=== PATIENT | male | born 1980 | race Caucasian/White ===

== ENCOUNTER 2016-11-19 09:13 | Inpatient (IN) | payer MEDICAID ==
--- NOTE | 2016-11-19 09:29 | EDM.PDOC ---
ED HPI GENERAL MEDICAL PROBLEM - General Chief Complaint: Gastrointestinal Problem Stated Complaint: [facility] Time Seen by Provider: 11/19/16 09:24 Source of Information: Reports: Patient History Limitations: Reports: No Limitations - History of Present Illness INITIAL COMMENTS - FREE TEXT/NARRATIVE: 36-year-old male presents to the ED per [facility]. Presented with a 2 day history of fever chills rigors associated nausea and vomiting 3 twice this morning of bilious material and loose watery stools. He said 5 loose watery stools since midnight. He does entertain the possibility of bad food ingestion by eating catfish about 24 hours before he became ill. Associated generalized myalgia headache. He also has a productive cough but he doesn't think is any worse than normal. He smokes pack cigarettes per day. History of previous pneumonia requiring thoracotomy drainage due to development of empyema but 15 years ago. Onset: Sudden Onset Date: 11/17/16 Duration: Day(s): Location: Reports: Generalized (Fever chills with rigors. Associated nausea vomiting diarrhea. My productive cough.) Quality: Reports: Ache, Other (Fever greater than 102. Associated rigors chills ) Severity: Moderate Improves with: Reports: None (Can't keep anything down.) Worsens with: Reports: Other Context: Denies: Activity, Exercise, Lifting, Sick Contact, Trauma, Other Associated Symptoms: Reports: Cough, cough w sputum, Diaphoresis, Fever/Chills ( Minimal sputum production), Headaches ( with rigors), Loss of Appetite, Malaise , Nausea/Vomiting, Other (Diarrhea side 5-8 times per day). Denies: Confusion, Rash, Seizure, Shortness of Breath, Syncope Treatments [employer]PER[employer]OR: Reports: NSAIDS - Related Data Allergies Allergy/AdvReac Type Severity Reaction Status Date / Time No Known Allergies Allergy Verified 11/19/16 09:21 Home Meds: Home Meds . [No Known Home Meds] 04/14/16 [History] Past Medical History HEENT History: Reports: None Cardiovascular History: Reports: Other (See Below) Other Cardiovascular History: chest pain Respiratory History: Reports: Sleep Apnea, Other (See Below) Other Respiratory History: states had a lung procedure done for R sided pneumonia, lung was drained Gastrointestinal History: Reports: Chronic Diarrhea, Other (See Below) Other Gastrointestinal History: RUQ pain, esophagitis, nausea Musculoskeletal History: Reports: None Neurological History: Reports: None Psychiatric History: Reports: Anxiety, Depression, Panic Attack Endocrine/Metabolic History: Reports: None Hematologic History: Reports: Other (See Below) Other Hematologic History: leukocytosis Dermatologic History: Reports: Eczema Social & Family History - Tobacco Use Smoking Status *Q: Current Every Day Smoker - Recreational Drug Use Recreational Drug Use: Yes Drug Use in Last 12 Months: No Recreational Drug Type: Reports: Marijuana/Hashish Recreational Drug Last Use: new year - Living Situation & Occupation Living situation: Reports: Single Occupation: Employed (Works doing construction.) ED ROS GENERAL - Review of Systems Review Of Systems: See Below Constitutional: Reports: Fever, Chills, Malaise, Weakness, Fatigue, Decreased Appetite. Denies: Weight Loss HEENT: Reports: No Symptoms Respiratory: Reports: Cough, Sputum (Small quantities.). Denies: Hemoptysis ( No color to it) Cardiovascular: Reports: No Symptoms Endocrine: Reports: No Symptoms GI/Abdominal: Reports: Abdominal Pain (Intermittent mild crampy pain), Diarrhea (Loose watery stools 5 since midnight. 8 yesterday.), Decreased Appetite ( No blood noted), Nausea, Vomiting (3 times this morning.) : Reports: No Symptoms Musculoskeletal: Reports: Muscle Pain Skin: Reports: No Symptoms (Generalized myalgia) Neurological: Reports: Dizziness, Headache ([place] like he might pass out a few times when standing up.), Difficulty Walking, Weakness (Due to feeling dizzy and weak) Psychiatric: Reports: No Symptoms ( generalized) Hematologic/Lymphatic: Reports: No Symptoms Immunologic: Reports: No Symptoms ED EXAM, GI/ABD - Physical Exam Exam: See Below Exam Limited By: No Limitations General Appearance: Alert, WD/WN, Mild Distress, Other Eyes: Bilateral: Normal Appearance (No jaundice.) Ears: Normal External Exam, Normal TMs Nose: Normal Inspection Throat/Mouth: Normal Oropharynx (Tongue is dry and coated.), Other Head: Atraumatic, Normocephalic Neck: Normal Inspection, Supple, Non-Tender, Full Range of Motion. No: Lymphadenopathy (L), Lymphadenopathy (R) Respiratory/Chest: No Respiratory Distress, Lungs Clear, Normal Breath Sounds, No Accessory Muscle Use, Respiratory Distress (Mild tachypnea felt to be secondary to fever.) Cardiovascular: Normal Peripheral Pulses, Regular Rate, Rhythm, No Edema, No Gallop, No Murmur GI/Abdominal Exam: Soft, Non-Tender, No Organomegaly, No Distention, No Abnormal Bruit, Abnormal Bowel Sounds (Hypoactive.), Other (No surgical scars) Back Exam: Normal Inspection, Full Range of Motion. No: CVA Tenderness (L), CVA Tenderness (R) Extremities: Normal Inspection, Normal Range of Motion, Non-Tender, No Pedal Edema, Normal Capillary Refill Neurological: Alert, Oriented, CN II-XII Intact, Normal Cognition, Normal Gait Psychiatric: Normal Affect, Normal Mood Skin Exam: Warm, Dry, Intact, Normal Color, No Rash EKG INTERPRETATION EKG Date: 11/19/16 Time: 09:40 Rhythm: NSR Rate (Beats/Min): 94 [place]: Normal P-Wave: Present QRS: Normal ST-T: Normal QT: Normal EKG Interpretation Comments: Normal ECG Course - Vital Signs Last Recorded V/S: Last Vital Signs Temp 39.3 C H 11/19/16 16:12 Pulse 99 11/19/16 09:22 Resp 14 11/19/16 09:22 BP 124/79 11/19/16 09:22 Pulse Ox 99 11/19/16 09:22 - Orders/Labs/Meds Orders: Active Orders 24 hr Category Date Time Status EKG Documentation Completion [RC] STAT Care 11/19/16 09:25 Active C DIFFICILE BY PCR W/NAP1 [MOLEC] Stat Lab 11/19/16 09:26 Ordered CULTURE BLOOD [BC] Stat Lab 11/19/16 10:03 Received CULTURE BLOOD [BC] Stat Lab 11/19/16 11:55 Received CULTURE STOOL + SHIGATOX [RM] Stat Lab 11/19/16 09:26 Uncollected WBC, STOOL [OP] Stat Lab 11/19/16 09:26 Uncollected Dextrose 5%-0.9% NaCl [Dextrose 5%-Normal Saline] 1,000 Med 11/19/16 09:30 Active ml IV ASDIRECTED Sodium Chloride 0.9% [Normal Saline] 1,000 ml Med 11/19/16 11:30 Active IV ASDIRECTED Blood Culture x2 Reflex Set [OM.PC] Stat Oth 11/19/16 09:26 Ordered Medication Orders Dextrose/Sodium Chloride (Dextrose 5%-Normal Saline) 1,000 mls @ 999 mls/hr IV ASDIRECTED LIYAH Last Admin: 11/19/16 10:08 Dose: 999 mls/hr Sodium Chloride (Normal Saline) 1,000 mls @ 125 mls/hr IV ASDIRECTED LIYAH Last Admin: 11/19/16 11:30 Dose: 125 mls/hr Labs: Laboratory Tests 11/19/16 11/19/16 11/19/16 Range/Units 10:03 10:03 11:50 WBC 10.12 H (4.23-9.07) K/mm3 RBC 5.54 (4.63-6.08) M/mm3 Hgb 15.8 (13.7-17.5) gm/L Hct 46.6 (40.1-51.0) % MCV 84.1 (79.0-92.2) fl MCH 28.5 (25.7-32.2) pg MCHC 33.9 (32.2-35.5) g/dl RDW Std Deviation 39.8 (35.1-43.9) fL Plt Count 265 (163-337) K/mm3 MPV 10.3 (9.4-12.3) fl Neutrophils % (Manual) 85 H (40-60) % Band Neutrophils % 0 (0-10) % Lymphocytes % (Manual) 13 L (20-40) % Atypical Lymphs % 0 % Monocytes % (Manual) 1 L (2-10) % Eosinophils % (Manual) 0 L (0.8-7.0) % Basophils % (Manual) 1 (0.2-1.2) Toxic Granulation See note Platelet Estimate Adequate Plt Morphology Comment Normal RBC Morph Comment Normal Sodium 136 (136-145) mEq/L Potassium 4.0 (3.5-5.1) mEq/L Chloride 102 (98-107) mEq/L Carbon Dioxide 25 (21-32) mEq/L Anion Gap 13.0 (5-15) BUN 14 (7-18) mg/dL Creatinine 1.4 H (0.7-1.3) mg/dL Est Cr Clr Drug Dosing 69.21 mL/min Estimated GFR (MDRD) 57 (>60) mL/min BUN/Creatinine Ratio 10.0 L (14-18) Glucose 98 (74-106) mg/dL Calcium 9.0 (8.5-10.1) mg/dL Total Bilirubin 0.7 (0.2-1.0) mg/dL AST 25 (15-37) U/L ALT 52 (16-63) U/L Alkaline Phosphatase 88 (46-116) U/L C-Reactive Protein 0.2 (<1.0) mg/dL Total Protein 7.4 (6.4-8.2) g/dl Albumin 3.7 (3.4-5.0) g/dl Globulin 3.7 gm/dL Albumin/Globulin Ratio 1.0 (1-2) Lipase 121 (73-393) U/L Urine Color Yellow (Yellow) Urine Appearance Clear (Clear) Urine pH 6.5 (5.0-8.0) Ur Specific [place] 1.015 (1.005-1.030) Urine Protein Negative (Negative) Urine Glucose (UA) Trace H (Negative) Urine Ketones 2+ H (Negative) Urine Occult Blood Negative (Negative) Urine Nitrite Negative (Negative) Urine Bilirubin Negative (Negative) Urine Urobilinogen 1.0 (0.2-1.0) Ur Leukocyte Esterase Negative (Negative) Urine RBC Not seen (0-5) /hpf Urine WBC 0-5 (0-5) /hpf Ur Epithelial Cells Not seen (0-5) /hpf Urine Bacteria Few (FEW) /hpf Urine Mucus Few (FEW) /hpf Meds: Medications Generic Name Dose Route Start Last Admin Trade Name Freq PRN Reason Stop Dose Admin Dextrose/Sodium Chloride 1,000 mls @ 999 mls/hr 11/19/16 09:30 11/19/16 10:08 Dextrose 5%-Normal Saline IV 999 mls/hr ASDIRECTED LIYAH Administration Sodium Chloride 1,000 mls @ 125 mls/hr 11/19/16 11:30 11/19/16 11:30 Normal Saline IV 125 mls/hr ASDIRECTED LIYAH Administration Discontinued Medications Generic Name Dose Route Start Last Admin Trade Name Freq PRN Reason Stop Dose Admin Acetaminophen 975 mg 11/19/16 10:46 11/19/16 10:49 Tylenol PO 11/19/16 10:47 975 mg NOW ONE Administration Diatrizoate Meglum/Diatrizoate Sod 90 ml 11/19/16 13:19 11/19/16 13:30 Gastrografin 37% PO 11/19/16 13:20 90 ml ONETIME ONE Administration Levofloxacin/Dextrose 750 mg/ 150 mls @ 100 mls/hr 11/19/16 14:15 11/19/16 14 :32 Premix IV 11/19/16 15:44 100 mls/hr ONETIME ONE Administration Ibuprofen 600 mg 11/19/16 16:09 11/19/16 16:12 Motrin PO 11/19/16 16:10 600 mg ONETIME ONE Administration Iopamidol 125 ml 11/19/16 13:19 11/19/16 13:30 Isovue-300 (61%) IVPUSH 11/19/16 13:20 125 ml ONETIME ONE Administration Sodium Chloride 10 ml 11/19/16 13:19 11/19/16 13:30 Saline Flush FLUSH 11/19/16 13:20 10 ml ONETIME ONE Administration - Radiology Interpretation Free Text/Narrative:: 36-year-old male presents to the ED for evaluation of high fever with associated rigors and chills over the last 2 days. Also development of nausea vomiting intermittently and loose watery diarrhea stools. Possible foodborne illness exposure by eating catfish that have been smoked 3 days ago. No recent antibiotic usage. Benign abdominal examination obviously febrile to exam. Paramedics gave him Zofran 4mg en route to the hospital . Plan D5 normal saline at open. Routine labs and blood cultures 2. One view chest x-ray urinalysis. Stool for culture and WBCs if this one becomes available. We'll also have him checked for influenza as he has many of the symptoms of influenza type B. - Re-Assessments/Exams Free Text/Narrative Re-Assessment/Exam: 11/19/16 10:58 labs reveal a white count of 10.12 with a left shift of 85% neutrophils but no bands. Hemoglobin 15.8 with hematocrit of 46.6. Platelets 2 65,000. Sodium 136 potassium 4.0 chloride 102 bicarbonate 25. Anion gap is 13.8. BUNs 14 creatinine is 1.4. Lipase 121 CRP is 0.2. Urinalysis is not yet available 11/19/16 11:08 chest x-ray reveals some heavy bronchovascular markings in both lower lung nieves worse on the right as compared to the left but no definitive infiltrates that I could call and pneumonia. An early pneumonia however cannot be ruled out 11/19/16 11:21 Temperature is now gone up to 102.2. Given Tylenol 975 mg per ora. Influenza screen came back negative. Awaiting urinalysis. If this is normal will proceed with CT abdomen and pelvis to try and identify source of fever. 11/19/16 14:[address] of the abdomen and pelvis. All bladder appears to be within normal limits with no pericholecystic fluid and no definitive gallstones. Liver is homogenous and normal. Pancreas appears normal kidneys and ureters are normal. Adrenal glands appear normal as well. There are several diverticula involving the lower aspect of the colon and sigmoid colon. There is an area at the rectosigmoid junction that appears to have a low-grade inflammatory response. The terminal ileum also appears to have thickened lilly suggestive of Crohn's disease. The patient has reported intermittent diarrhea and intermittent abdominal cramping pain but not all the time and it's unlikely that he has Crohn's disease. It male katie also represent a infectious illness. I will await the radiologist's opinion in this regard. Temperature is down to 100. I am going to start him on antibiotics starting with Levaquin 750 mg IV. Note urinalysis only showed 2+ ketones. No signs of infection. 11/19/16 14:35 He is a bit hungry and therefore he can certainly have clear fluids and we will give him a nondairy diet. Spoke with Dr. Mckenzie admitting hospitalist and she will see him in the ED to arrange admission to [facility] surgery. Departure - Departure Time of Disposition: 16:30 Disposition: Admitted As Inpatient 64 Condition: Fair Clinical Impression: Fever of unknown origin, Gastroenteritis - Discharge Information - My Orders Last 24 Hours: My Active Orders 11/19/16 09:25 EKG Documentation Completion [RC] STAT 11/19/16 09:26 C DIFFICILE BY PCR W/NAP1 [MOLEC] Stat CULTURE STOOL + SHIGATOX [RM] Stat WBC, STOOL [OP] Stat Blood Culture x2 Reflex Set [OM.PC] Stat 11/19/16 09:30 Dextrose 5%-0.9% NaCl [Dextrose 5%-Normal Saline] 1,000 ml IV ASDIRECTED 11/19/16 10:03 CULTURE BLOOD [BC] Stat 11/19/16 11:30 Sodium Chloride 0.9% [Normal Saline] 1,000 ml IV ASDIRECTED 11/19/16 11:55 CULTURE BLOOD [BC] Stat - Assessment/Plan Last 24 Hours: My Active Orders 11/19/16 09:25 EKG Documentation Completion [RC] STAT 11/19/16 09:26 C DIFFICILE BY PCR W/NAP1 [MOLEC] Stat CULTURE STOOL + SHIGATOX [RM] Stat WBC, STOOL [OP] Stat Blood Culture x2 Reflex Set [OM.PC] Stat 11/19/16 09:30 Dextrose 5%-0.9% NaCl [Dextrose 5%-Normal Saline] 1,000 ml IV ASDIRECTED 11/19/16 10:03 CULTURE BLOOD [BC] Stat 11/19/16 11:30 Sodium Chloride 0.9% [Normal Saline] 1,000 ml IV ASDIRECTED 11/19/16 11:55 CULTURE BLOOD [BC] Stat
[2016-11-19] MEDS ORDERED: Dextrose 5%-0.9% NaCl 1,000 ML IV SCH (09:30)
[2016-11-19] MEDS ORDERED: Acetaminophen 325 MG Tab PO ONE (10:46)
[2016-11-19] MEDS: Sodium Chloride 0.9% 1,000 ML IV SCH ×2 (11:30→23:13)
--- NOTE | 2016-11-19 12:57 | CR ---
Chest: Portable view of the chest was obtained. Comparison: No previous chest x-ray. Heart size and mediastinum are normal. Slight blunting of the right lateral costophrenic angle is seen. Central lung markings mildly increased possibly due to mild bronchitis. Lungs otherwise are clear with no alveolar type densities. Bony structures are grossly intact. Impression: 1. Blunting of the right lateral costophrenic angle possibly due to slight atelectasis. 2. Mild increased lung markings raising the question of mild bronchitis. No alveolar densities of pneumonia are seen. Diagnostic code #3
[2016-11-19] MEDS ORDERED: Sodium Chloride 0.9% 10 ML Syringe FLUSH ONE (13:19)
[2016-11-19] MEDS ORDERED: Iopamidol 612 MG/ML 150 ML Bottle IVPUSH ONE (13:19)
[2016-11-19] MEDS ORDERED: Diatrizoate Meglumine/Diatrizoate Sodium 37% 120 ML Bottle PO ONE (13:19)
[2016-11-19] MEDS ORDERED: Levofloxacin/Dextrose 5%-Water 750 MG in Premix Bag 1 BAG IV ONE (14:15)
--- NOTE | 2016-11-19 14:17 | CT ---
CT abdomen and pelvis Technique: Multiple axial images were obtained from the top of the liver inferiorly through the pubic symphysis. Intravenous and oral contrast was utilized. Reconstructed coronal and sagittal images were reviewed. Delayed images were obtained through the bladder. Findings: Bowel wall thickening is seen within the terminal ileum. Appendix is seen which appears normal. No other bowel wall thickening is seen. Visualized lung bases shows minimal atelectasis on the right side. Liver shows no focal parenchymal abnormality. Small hiatal hernia is seen. Minimal gastroesophageal reflux is noted. Spleen appears within normal limits. Adrenal glands show no nodule. Kidneys show symmetric contrast enhancement without hydronephrosis or mass. Pancreas appears within normal limits. Aorta shows no aneurysmal dilatation. No retroperitoneal adenopathy is seen. Small scattered mesenteric lymph nodes are seen believed to be within normal limits. No pelvic mass or adenopathy is seen. Bone window settings were reviewed which shows a unilateral spondylitic defect at L5-S1 on the left side. Delayed images shows contrast within the distal ureters and within the bladder. Impression: 1. Bowel wall thickening within the terminal ileum. Crohn's disease is the most likely etiology. Other inflammatory bowel disease is possible. Infectious enteritis is also within the differential. 2. Other incidental finding as noted above. Diagnostic code #3
[2016-11-19] MEDS ORDERED: Ibuprofen 600 MG Tab PO ONE (16:09)
[2016-11-19] MEDS ORDERED: Magnesium Sulfate/Water 2 GM in Premix Bag 1 BAG IV ONE (17:57)
[2016-11-19] MEDS ORDERED: REMOVE SCOPOLAMINE TRDERM PRN (18:01)
[2016-11-19] MEDS ORDERED: HYDROmorphone 1 MG/ML Syringe IVPUSH PRN (18:01)
--- NOTE | 2016-11-19 18:19 | PCM.HP ---
H&P History of Present Illness - General Date of Service: 11/19/16 Admit Problem/Dx: Admission Diagnosis/Problem Admission Diagnosis/Problem Fever of unknown origin Source of Information: Patient, Provider History Limitations: Reports: No Limitations - History of Present Illness Initial Comments - Free Text/Narative: 36 year old male with history of chronic diarrhea, has had a three day course of watery stool. CT of abdomen/pelvis suggest Crohn's with terminal ileum involvement. Patient has had fever and chills with decreased appetite. Additionally nausea/vomiting. Elevated temp >102F has also been noted. Onset of Symptoms: Reports: Gradual Duration of Symptoms: Reports: Day(s):, Getting Worse Location: Reports: Abdomen Quality: Reports: Ache Severity: Moderate Improves with: Reports: Medication Worsens with: Reports: None Associated Symptoms: Reports: Fever/Chills, Loss of Appetite, Malaise, Nausea/ Vomiting, Weakness headache Pain Score (Numeric/FACES): 10 - Related Data Allergies/Adverse Reactions: Allergies Allergy/AdvReac Type Severity Reaction Status Date / Time No Known Allergies Allergy Verified 11/19/16 09:21 Home Medications: Home Meds . [No Known Home Meds] 04/14/16 [History] Past Medical History HEENT History: Reports: None Cardiovascular History: Reports: Other (See Below) Other Cardiovascular History: chest pain Respiratory History: Reports: Sleep Apnea, Other (See Below) Other Respiratory History: states had a lung procedure done for R sided pneumonia, lung was drained Gastrointestinal History: Reports: Chronic Diarrhea, Other (See Below) Other Gastrointestinal History: RUQ pain, esophagitis, nausea Musculoskeletal History: Reports: None Neurological History: Reports: None Other Neuro History: started 3 weeks Psychiatric History: Reports: Anxiety, Depression, Panic Attack Endocrine/Metabolic History: Reports: None Hematologic History: Reports: Other (See Below) Other Hematologic History: leukocytosis Dermatologic History: Reports: Eczema - Infectious Disease History Infectious Disease History: Reports: Other (See Below) Other Infectious Disease History: not sure - Past Surgical History Cardiovascular Surgical History: Reports: None GI Surgical History: Reports: None Endocrine Surgical History: Reports: None Neurological Surgical History: Reports: None Social & Family History - Family History Cardiac: Reports: [place] Other Cardiac Family History: father, grandfather and uncle Respiratory: Reports: None GI: Reports: None : Reports: None OBGYN: Reports: None Musculoskeletal: Reports: None Neurological: Reports: None Psychiatric: Reports: None Endocrine/Metabolic: Reports: None Hematologic: Reports: None Immunologic: Reports: None Oncologic: Reports: None - Tobacco Use Smoking Status *Q: Current Every Day Smoker Years of Tobacco use: 25 Packs/Tins Daily: 1 - Caffeine Use Caffeine Use: Reports: Coffee, Tea - Recreational Drug Use Recreational Drug Use: Yes Drug Use in Last 12 Months: No Recreational Drug Type: Reports: Marijuana/Hashish Recreational Drug Last Use: new year - Living Situation & Occupation Living situation: Reports: Single Occupation: Employed (Works doing construction.) H&P Review of Systems - Review of Systems: Review Of Systems: See Below General: Reports: Fever, Chills, Malaise, Weakness, Fatigue, Decreased Appetite HEENT: Reports: No Symptoms Pulmonary: Reports: No Symptoms Cardiovascular: Reports: No Symptoms Gastrointestinal: Reports: Abdominal Pain, Diarrhea (watery stools), Decreased Appetite Genitourinary: Reports: No Symptoms Musculoskeletal: Reports: No Symptoms Skin: Reports: No Symptoms Psychiatric: Reports: No Symptoms Neurological: Reports: No Symptoms Exam - Exam Exam: See Below - Vital Signs Vital Signs: Last Vital Signs Temp 37.2 C 11/19/16 16:49 Pulse 94 11/19/16 16:49 Resp 20 11/19/16 16:49 BP 111/82 11/19/16 16:49 Pulse Ox 98 11/19/16 16:49 Weight: 81.647 kg - Exam Quality Assessment: DVT Prophylaxis General: Alert, Oriented, Cooperative HEENT: Nares Patent, Normal Nasal Septum, Posterior Pharynx Clear, Pupils Equal , Pupils Reactive Neck: Supple, Trachea Midline Lungs: Normal Respiratory Effort Cardiovascular: Regular Rate, Regular Rhythm GI/Abdominal Exam: Normal Bowel Sounds, Soft, Non-Tender, No Distention, No Abnormal Bruit (Male) Exam: Deferred Rectal (Males) Exam: Deferred Back Exam: Normal Inspection Extremities: Normal Inspection, No Pedal Edema Skin: Warm Neurological: Cranial Nerves Intact, Normal Speech Neuro Extensive - Mental Status: Alert, Oriented x3, Normal Mood/Affect, Normal Cognition, Memory Intact Neuro Extensive - Motor, Sensory, Reflexes: CN II-XII Intact Psychiatric: Alert, Normal Affect, Normal Mood - Patient Data Result Diagrams: 11/20/16 05:38 11/20/16 05:38 *Q Meaningful Use (ADM) - VTE *Q VTE Criteria *Q: - Stroke *Q Stroke Criteria *Q: - AMI *Q AMI Criteria *Q: - Problem List (1) Crohns disease of small intestine SNOMED Code(s): 08319605 ICD Code: K50.00 - CROHN'S DISEASE OF SMALL INTESTINE WITHOUT COMPLICATIONS Status: Acute Current Visit: Yes Qualifiers: Digestive disease complication type: without complication Qualified Code(s) : K50.00 - Crohn's disease of small intestine without complications (2) Fever of unknown origin SNOMED Code(s): 5156659 ICD Code: R50.9 - FEVER, UNSPECIFIED Status: Acute Current Visit: Yes (3) Gastroenteritis SNOMED Code(s): 79176960 ICD Code: K52.9 - NONINFECTIVE GASTROENTERITIS AND COLITIS, UNSPECIFIED Status: Acute Current Visit: Yes (4) Tobacco dependence SNOMED Code(s): 09509773 ICD Code: F17.200 - NICOTINE DEPENDENCE, UNSPECIFIED, UNCOMPLICATED Status : Acute Current Visit: Yes Problem List Initiated/Reviewed/Updated: Yes Orders Last 24hrs: Active Orders 24 hr Category Date Time Status Admission Status [Patient Status] [ADT] Routine ADT 11/19/16 17:17 Active Antiembolic Devices [RC] PER UNIT ROUTINE Care 11/19/16 17:58 Active Notify Provider Consults [RC] ASDIRECTED Care 11/19/16 18:07 Ordered Consult to Physician [CONS] Routine Cons 11/19/16 18:30 Ordered CBC WITH AUTO DIFF [HEME] DAILY Lab 11/20/16 05:00 Ordered CBC WITH AUTO DIFF [HEME] DAILY Lab 11/21/16 05:00 Ordered CBC WITH AUTO DIFF [HEME] DAILY Lab 11/22/16 05:00 Ordered CBC WITH AUTO DIFF [HEME] DAILY Lab 11/23/16 05:00 Ordered CMP [COMPREHENSIVE METABOLIC PN,CMP] [CHEM] DAILY Lab 11/20/16 05:00 Ordered CMP [COMPREHENSIVE METABOLIC PN,CMP] [CHEM] DAILY Lab 11/21/16 05:00 Ordered CMP [COMPREHENSIVE METABOLIC PN,CMP] [CHEM] DAILY Lab 11/22/16 05:00 Ordered CMP [COMPREHENSIVE METABOLIC PN,CMP] [CHEM] DAILY Lab 11/23/16 05:00 Ordered CRP [C-REACTIVE PROTEIN] [CHEM] DAILY Lab 11/20/16 05:00 Ordered CRP [C-REACTIVE PROTEIN] [CHEM] DAILY Lab 11/21/16 05:00 Ordered CRP [C-REACTIVE PROTEIN] [CHEM] DAILY Lab 11/22/16 05:00 Ordered CRP [C-REACTIVE PROTEIN] [CHEM] DAILY Lab 11/23/16 05:00 Ordered LACTIC ACID [CHEM] DAILY Lab 11/20/16 05:00 Ordered LACTIC ACID [CHEM] DAILY Lab 11/21/16 05:00 Ordered LIPASE [CHEM] Routine Lab 11/20/16 05:00 Ordered MAGNESIUM [CHEM] DAILY Lab 11/20/16 05:00 Ordered MAGNESIUM [CHEM] DAILY Lab 11/21/16 05:00 Ordered MAGNESIUM [CHEM] DAILY Lab 11/22/16 05:00 Ordered MAGNESIUM [CHEM] DAILY Lab 11/23/16 05:00 Ordered HYDROmorphone [Dilaudid] Med 11/19/16 18:01 Ordered 1 mg IVPUSH Q8H PRN Ketorolac [Toradol] Med 11/20/16 00:30 Ordered 30 mg IVPUSH Q6H Ketorolac [Toradol] Med 11/19/16 17:52 Pending 60 mg IVPUSH ONETIME ONE LORazepam [Ativan] Med 11/19/16 18:03 Ordered 1 mg IVPUSH Q6H PRN Magnesium Sulfate/Water [Magnesium Sulfate 2 GM in Med 11/19/16 17:57 Ordered Water 50 ML] 2 gm Premix Bag 1 bag IV ONETIME Nicotine [Habitrol] Med 11/20/16 08:00 Once 21 mg TRDERM ONETIME ONE Ondansetron [Zofran] Med 11/19/16 18:00 Ordered 4 mg IVPUSH Q8H PRN Pantoprazole [ProTONIX IV] Med 11/19/16 18:00 Ordered 40 mg IVPUSH Q12H Remove Patch Med 11/19/16 18:01 Active 1 ea TRDERM Q72H PRN Scopolamine [Transderm-Scop] Med 11/19/16 18:01 Ordered 1.5 mg TRDERM Q72H PRN Sodium Chloride 0.45% 1,000 ml Med 11/19/16 18:00 Active IV ASDIRECTED metroNIDAZOLE/Normal Saline [Flagyl 500 MG in NS 100 ML Med 11/19/16 18:00 Active ] 500 mg Premix Bag 1 bag IV Q8H SRI Hose [Antiembolic Hose] [OM.PC] Routine Oth 11/19/16 17:58 Ordered Code Status [Resuscitation Status] Routine Resus Stat 11/19/16 17:39 Ordered Medication Orders Hydromorphone HCl (Dilaudid) 1 mg IVPUSH Q8H PRN PRN Reason: Pain (severe 7-10) Dextrose/Sodium Chloride (Dextrose 5%-Normal Saline) 1,000 mls @ 999 mls/hr IV ASDIRECTED [facility] Last Admin: 11/19/16 10:08 Dose: 999 mls/hr Sodium Chloride (Normal Saline) 1,000 mls @ 125 mls/hr IV ASDIRECTED [facility] Last Admin: 11/19/16 11:30 Dose: 125 mls/hr Sodium Chloride (Sodium Chloride 0.45%) 1,000 mls @ 999 mls/hr IV ASDIRECTED [facility] Stop: 11/20/16 19:01 Metronidazole 500 mg/ Premix 100 mls @ 100 mls/hr IV Q8H LIYAH Magnesium Sulfate 2 gm/ Premix 50 mls @ 25 mls/hr IV ONETIME ONE Stop: 11/19/16 19:56 Ketorolac Tromethamine (Toradol) 60 mg IVPUSH ONETIME ONE Stop: 11/19/16 17:53 Ketorolac Tromethamine (Toradol) 30 mg IVPUSH Q6H LIYAH Lorazepam (Ativan) 1 mg IVPUSH Q6H PRN PRN Reason: Anxiety Miscellaneous Information (Remove Patch) 1 ea TRDERM Q72H PRN PRN Reason: PATCH REMOVAL Nicotine (Habitrol) 21 mg TRDERM ONETIME ONE Stop: 11/20/16 08:01 Ondansetron HCl (Zofran) 4 mg IVPUSH Q8H PRN PRN Reason: Nausea/Vomiting Pantoprazole Sodium (Protonix Iv) 40 mg IVPUSH Q12H LIYAH Scopolamine (Transderm-Scop) 1.5 mg TRDERM Q72H PRN PRN Reason: Nausea/Vomiting Assessment/Plan Comment:: Impression: Abdominal pain, infectious cf Crohn's Abnormal CT of abdomen/pelvis Chronic diarrhea, character changed to watery Febrile illness Dehydration Plan: IVF; ice chips Pain control IV ATB Steroids after infectious source evaluated GI eval as OP; general surgery as inpatient DVT/GI prophylaxis SW/CM consult
[2016-11-19] MEDS: Pantoprazole 40 MG Vial IVPUSH SCH (18:53)
[2016-11-19] MEDS: Sodium Chloride 0.45% 1,000 ML IV SCH ×2 (18:54→20:00)
[2016-11-19] MEDS: metroNIDAZOLE/Normal Saline 500 MG in Premix Bag 1 BAG IV SCH (19:36)
[2016-11-19] MEDS: Ondansetron 4 MG/2 ML SDV IVPUSH PRN (19:42)
[2016-11-19] MEDS ORDERED: Ketorolac 30 MG/ML SDV IM ONE (20:00)
[2016-11-20] MEDS ORDERED: Ketorolac 30 MG/ML SDV IVPUSH SCH (02:00)
[2016-11-20] MEDS: metroNIDAZOLE/Normal Saline 500 MG in Premix Bag 1 BAG IV SCH ×3 (03:04→17:42)
[2016-11-20] MEDS: Ketorolac 30 MG/ML SDV IVPUSH SCH ×2 (05:42→11:17)
[2016-11-20] MEDS: Pantoprazole 40 MG Vial IVPUSH SCH ×2 (05:44→17:56)
[2016-11-20] MEDS ORDERED: Nicotine 21 MG/24 Hr Patch TRDERM ONE (08:00)
--- NOTE | 2016-11-20 08:13 | CONS ---
CONSULTING PHYSICIAN: Raymond Schwab MD DATE OF CONSULTATION: 11/19/2016 HISTORY OF PRESENT ILLNESS: This is a 36-year-old from [place], works in construction, presented with 2-day history of fever and chills, and some nausea and vomiting only 3 times this morning. He came into the ER where evaluation was performed and admitted for febrile episode. It is noted that his white count was 10,000 and no bands. Chest x-ray reveals some heavy bronchovascular markings in both lung nieves. No definite infiltrates. CT of the abdomen was unremarkable outside of a normal appendix and wall thickening indicative of Crohn disease. This went along with a history of intermittent cramps and diarrhea 4 or 5 loose watery stools a day. This has been with the patient for the last 6 months. He has had no rectal bleeding. He denies any abdominal pain. He does feel that he ate some catfish about last week he says and that might have caused his particular problem. PAST MEDICAL HISTORY: Is that of a thoracotomy for pneumonia which needed to be drained not by thoracotomy, by some unstated lung procedure. He had chronic diarrhea stated above, history esophagitis in the past, anxiety, depression. MEDICATIONS: None known. SOCIAL HISTORY: He does smoke. No use of marijuana. No drinking. No drugs. ALLERGIES: None known. FAMILY HISTORY: Negative for inflammatory bowel disease. REVIEW OF SYSTEMS: No chest pain, some shortness of breath with work, no cough, hoarseness, fainting, weakness. Does feel weak and malaise and not feeling good generalized aches and pains. Does have diarrhea, only one episode of vomiting, but no hematochezia or hematemesis. PHYSICAL EXAMINATION: GENERAL: Reveals the patient in moderate distress. VITAL SIGNS: Temperature 39, pulse 99, respirations 14, blood pressure 124/79. EYES: Sclerae white. Extraocular muscle motion normal. ORAL CAVITY: Healthy mucous membrane. NECK: Supple. No nodes. No thyromegaly. Trachea midline. LUNGS: Clear. No rales, rhonchi, fremitus, or dullness. HEART: Tones regular rate. No S3, S4, jugular venous distention, or murmurs. ABDOMEN: Soft, no tenderness, guarding, rebound, organomegaly, or pulsatile masses. EXTREMITIES: Upper and lower extremities, no angulation deformities. NEUROLOGIC: Cranial nerves 3 through 12 intact. SKIN: Clammy and sweaty throughout. PSYCHIATRIC: Normal. LABORATORY DATA: White count 10,000. Bilirubin is normal. C-reactive protein 0.2. ASSESSMENT: Fever, unknown etiology, possible Crohn disease. On CT scan, the abdomen is benign. Nothing further to do at this time in terms of surgery. MMODAL /[id number]
[2016-11-20] MEDS: Sodium Chloride 0.9% 1,000 ML IV SCH ×3 (08:35→21:00)
[2016-11-20] MEDS: Acetaminophen 325 MG Tab PO PRN ×2 (10:00→14:15)
--- NOTE | 2016-11-20 10:35 | CT ---
Head CT Technique: Multiple axial sections through the brain were obtained. Intravenous contrast was not utilized. Comparison: No previous intracranial imaging. Findings: Ventricles along with basal cisterns and sulci over the convexities appear within normal limits for the patient's age. Minimal calcification is seen along the right cerebellar tentorium which is incidental. Minimal calcification is also seen within the cortical tissue of the posterior right frontal region which is felt to be incidental. No abnormal parenchymal densities are otherwise seen. No evidence of intracranial hemorrhage. No midline shift or mass effect is seen. Bone window settings were reviewed which shows the visualized sinuses to appear clear. No acute calvarial abnormality is identified. Impression: 1. Several incidental calcifications as described above. 2. No acute intracranial abnormality is identified on noncontrast head CT exam. Diagnostic code #2
[2016-11-20] MEDS ORDERED: Vancomycin 1 GM, Vancomycin 250 MG in Sodium Chloride 0.9% 250 ML IV SCH (13:00)
[2016-11-20] MEDS ORDERED: Levofloxacin/Dextrose 5%-Water 750 MG in Premix Bag 1 BAG IV SCH (14:00)
[2016-11-20] MEDS ORDERED: Piperacillin/Tazobactam 4.5 GM in Sodium Chloride 0.9% 100 ML IV ONE (15:00)
--- NOTE | 2016-11-20 17:00 | PCM.PN ---
- General Info Date of Service: 11/20/16 Functional Status: Reports: Other - Review of Systems General: Reports: Fever, Weakness, Fatigue, Malaise, Chills HEENT: Reports: No Symptoms Pulmonary: Reports: No Symptoms Cardiovascular: Reports: No Symptoms Gastrointestinal: Reports: No Symptoms Genitourinary: Reports: No Symptoms Musculoskeletal: Reports: No Symptoms Skin: Reports: No Symptoms Neurological: Reports: Headache Psychiatric: Reports: No Symptoms - Patient Data Vitals - Most Recent: Last Vital Signs Temp 36.7 C 11/20/16 16:00 Pulse 83 11/20/16 16:00 Resp 20 11/20/16 16:00 BP 150/87 H 11/20/16 15:14 Pulse Ox 93 L 11/20/16 16:00 Weight - Most Recent: 81.647 kg I&O - Last 24 Hours: Intake & Output 11/20/16 11/20/16 11/20/16 06:59 14:59 22:59 Intake Total 1449 Output Total 300 Balance 1149 Lab Results Last 24 Hours: Laboratory Results - last 24 hr 11/19/16 11/20/16 11/20/16 Range/Units 19:38 03:15 05:38 WBC 10.91 H (4.23-9.07) K/mm3 RBC 5.39 (4.63-6.08) M/mm3 Hgb 15.2 (13.7-17.5) gm/L Hct 45.9 (40.1-51.0) % MCV 85.2 (79.0-92.2) fl MCH 28.2 (25.7-32.2) pg MCHC 33.1 (32.2-35.5) g/dl RDW Std Deviation 40.4 (35.1-43.9) fL Plt Count 231 (163-337) K/mm3 MPV 10.3 (9.4-12.3) fl Neut % (Auto) 71.3 H (34.0-67.9) % Lymph % (Auto) 14.2 L (21.8-53.1) % [place] % (Auto) 13.9 H (5.3-12.2) % Eos % (Auto) 0.3 L (0.8-7.0) Baso % (Auto) 0.1 (0.1-1.2) % Neut # (Auto) 7.78 H (1.78-5.38) K/mm3 Lymph # (Auto) 1.55 (1.32-3.57) K/mm3 [place] # (Auto) 1.52 H (0.30-0.82) K/mm3 Eos # (Auto) 0.03 L (0.04-0.54) K/mm3 Baso # (Auto) 0.01 (0.01-0.08) K/mm3 Manual Slide Review Abnormal smear ESR (0-15) mm/hr Sodium (136-145) mEq/L Potassium (3.5-5.1) mEq/L Chloride (98-107) mEq/L Carbon Dioxide (21-32) mEq/L Anion Gap (5-15) BUN (7-18) mg/dL Creatinine (0.7-1.3) mg/dL Est Cr Clr Drug Dosing mL/min Estimated GFR (MDRD) (>60) mL/min BUN/Creatinine Ratio (14-18) Glucose (74-106) mg/dL POC Glucose 99 (70-105) mg/dL Lactic Acid (0.4-2.0) mmol/L Calcium (8.5-10.1) mg/dL Magnesium (1.8-2.4) mg/dl Iron (65-175) ug/dL TIBC (100-400) ug/dL % Saturation (20-55) % Transferrin (202-364) mg/dL Total Bilirubin (0.2-1.0) mg/dL AST (15-37) U/L ALT (16-63) U/L Alkaline Phosphatase (46-116) U/L C-Reactive Protein (<1.0) mg/dL Total Protein (6.4-8.2) g/dl Albumin (3.4-5.0) g/dl Globulin gm/dL Albumin/Globulin Ratio (1-2) Lipase (73-393) U/L Vitamin B12 (193-986) pg/ml C.difficile [id number] Presumptive negative C. difficile Tox (PCR) Negative 11/20/16 11/20/16 11/20/16 Range/Units 05:38 05:38 05:38 WBC (4.23-9.07) K/mm3 RBC (4.63-6.08) M/mm3 Hgb (13.7-17.5) gm/L Hct (40.1-51.0) % MCV (79.0-92.2) fl MCH (25.7-32.2) pg MCHC (32.2-35.5) g/dl RDW Std Deviation (35.1-43.9) fL Plt Count (163-337) K/mm3 MPV (9.4-12.3) fl Neut % (Auto) (34.0-67.9) % Lymph % (Auto) (21.8-53.1) % [place] % (Auto) (5.3-12.2) % Eos % (Auto) (0.8-7.0) Baso % (Auto) (0.1-1.2) % Neut # (Auto) (1.78-5.38) K/mm3 Lymph # (Auto) (1.32-3.57) K/mm3 [place] # (Auto) (0.30-0.82) K/mm3 Eos # (Auto) (0.04-0.54) K/mm3 Baso # (Auto) (0.01-0.08) K/mm3 Manual Slide Review ESR 12 (0-15) mm/hr Sodium 140 (136-145) mEq/L Potassium 4.1 (3.5-5.1) mEq/L Chloride 105 (98-107) mEq/L Carbon Dioxide 25 (21-32) mEq/L Anion Gap 14.1 (5-15) BUN 13 (7-18) mg/dL Creatinine 1.2 (0.7-1.3) mg/dL Est Cr Clr Drug Dosing 80.75 mL/min Estimated GFR (MDRD) > 60 (>60) mL/min BUN/Creatinine Ratio 10.8 L (14-18) Glucose 87 (74-106) mg/dL POC Glucose (70-105) mg/dL Lactic Acid 0.8 (0.4-2.0) mmol/L Calcium 8.7 (8.5-10.1) mg/dL Magnesium 2.2 (1.8-2.4) mg/dl Iron (65-175) ug/dL TIBC (100-400) ug/dL % Saturation (20-55) % Transferrin (202-364) mg/dL Total Bilirubin 0.8 (0.2-1.0) mg/dL AST 16 (15-37) U/L ALT 41 (16-63) U/L Alkaline Phosphatase 83 (46-116) U/L C-Reactive Protein 0.2 (<1.0) mg/dL Total Protein 7.1 (6.4-8.2) g/dl Albumin 3.5 (3.4-5.0) g/dl Globulin 3.6 gm/dL Albumin/Globulin Ratio 1.0 (1-2) Lipase 108 (73-393) U/L Vitamin B12 (193-986) pg/ml C.difficile 027-NAP1-B1 C. difficile Tox (PCR) 11/20/16 Range/Units 05:38 WBC (4.23-9.07) K/mm3 RBC (4.63-6.08) M/mm3 Hgb (13.7-17.5) gm/L Hct (40.1-51.0) % MCV (79.0-92.2) fl MCH (25.7-32.2) pg MCHC (32.2-35.5) g/dl RDW Std Deviation (35.1-43.9) fL Plt Count (163-337) K/mm3 MPV (9.4-12.3) fl Neut % (Auto) (34.0-67.9) % Lymph % (Auto) (21.8-53.1) % [place] % (Auto) (5.3-12.2) % Eos % (Auto) (0.8-7.0) Baso % (Auto) (0.1-1.2) % Neut # (Auto) (1.78-5.38) K/mm3 Lymph # (Auto) (1.32-3.57) K/mm3 [place] # (Auto) (0.30-0.82) K/mm3 Eos # (Auto) (0.04-0.54) K/mm3 Baso # (Auto) (0.01-0.08) K/mm3 Manual Slide Review ESR (0-15) mm/hr Sodium (136-145) mEq/L Potassium (3.5-5.1) mEq/L Chloride (98-107) mEq/L Carbon Dioxide (21-32) mEq/L Anion Gap (5-15) BUN (7-18) mg/dL Creatinine (0.7-1.3) mg/dL Est Cr Clr Drug Dosing mL/min Estimated GFR (MDRD) (>60) mL/min BUN/Creatinine Ratio (14-18) Glucose (74-106) mg/dL POC Glucose (70-105) mg/dL Lactic Acid (0.4-2.0) mmol/L Calcium (8.5-10.1) mg/dL Magnesium (1.8-2.4) mg/dl Iron 31 L (65-175) ug/dL TIBC 271 (100-400) ug/dL % Saturation 11 L (20-55) % Transferrin 217 (202-364) mg/dL Total Bilirubin (0.2-1.0) mg/dL AST (15-37) U/L ALT (16-63) U/L Alkaline Phosphatase (46-116) U/L C-Reactive Protein (<1.0) mg/dL Total Protein (6.4-8.2) g/dl Albumin (3.4-5.0) g/dl Globulin gm/dL Albumin/Globulin Ratio (1-2) Lipase (73-393) U/L Vitamin B12 371 (193-986) pg/ml C.difficile 027-NAP1-B1 C. difficile Tox (PCR) Shiv Results Last 24 Hours: Microbiology 11/20/16 03:15 Stool for WBCs - Final Stool / Feces Med Orders - Current: Current Medications Acetaminophen (Tylenol) 650 mg PO Q4H PRN PRN Reason: Pain/Fever Last Admin: 11/20/16 14:15 Dose: 650 mg Hydromorphone HCl (Dilaudid) 1 mg IVPUSH Q8H PRN PRN Reason: Pain (severe 7-10) Last Admin: 11/20/16 16:54 Dose: 1 mg Sodium Chloride (Normal Saline) 1,000 mls @ 125 mls/hr IV ASDIRECTED LIYAH Last Admin: 11/20/16 08:35 Dose: 125 mls/hr Metronidazole 500 mg/ Premix 100 mls @ 100 mls/hr IV Q8H [facility]YAH Last Admin: 11/20/16 09:40 Dose: 100 mls/hr Levofloxacin/Dextrose 750 mg/ (Premix) 150 mls @ 100 mls/hr IV Q24H [facility] Last Admin: 11/20/16 14:48 Dose: 100 mls/hr Vancomycin HCl 1 gm/Vancomycin HCl 250 mg/ Sodium Chloride 250 mls @ 166 mls/ hr IV Q12H [facility] Last Admin: 11/20/16 12:58 Dose: 166 mls/hr Piperacillin Sod/Tazobactam (Sod 4.5 gm/ Sodium Chloride) 100 mls @ 25 mls/hr IV Q8H [facility] Ibuprofen (Motrin) 600 mg PO Q6H PRN PRN Reason: Pain/Fever Lorazepam (Ativan) 1 mg IVPUSH Q6H PRN PRN Reason: Anxiety Miscellaneous Information (Remove Patch) 1 ea TRDERM Q72H PRN PRN Reason: PATCH REMOVAL Miscellaneous Information (Remove Patch) 1 ea TRDERM ONETIME ONE Stop: 11/21/16 08:01 Ondansetron HCl (Zofran) 4 mg IVPUSH Q8H PRN PRN Reason: Nausea/Vomiting Last Admin: 11/19/16 19:42 Dose: 4 mg Pantoprazole Sodium (Protonix Iv) 40 mg IVPUSH Q12H [facility] Last Admin: 11/20/16 05:44 Dose: 40 mg Scopolamine (Transderm-Scop) 1.5 mg TRDERM Q72H PRN PRN Reason: Nausea/Vomiting Vancomycin HCl (Pharmacy To Dose - Vancomycin) 0 dose .XX ASDIRECTED PRN PRN Reason: RX TO DOSE VANCOMYCIN Discontinued Medications Acetaminophen (Tylenol) 975 mg PO NOW ONE Stop: 11/19/16 10:47 Last Admin: 11/19/16 10:49 Dose: 975 mg Diatrizoate Meglum/Diatrizoate Sod (Gastrografin 37%) 90 ml PO ONETIME ONE Stop: 11/19/16 13:20 Last Admin: 11/19/16 13:30 Dose: 90 ml Dextrose/Sodium Chloride (Dextrose 5%-Normal Saline) 1,000 mls @ 999 mls/hr IV ASDIRECTED [facility] Last Admin: 11/19/16 10:08 Dose: 999 mls/hr Levofloxacin/Dextrose 750 mg/ (Premix) 150 mls @ 100 mls/hr IV ONETIME ONE Stop: 11/19/16 15:44 Last Admin: 11/19/16 14:32 Dose: 100 mls/hr Sodium Chloride (Sodium Chloride 0.45%) 1,000 mls @ 999 mls/hr IV ASDIRECTED [facility] Stop: 11/20/16 19:01 Last Admin: 11/19/16 20:00 Dose: 999 mls/hr Magnesium Sulfate 2 gm/ Premix 50 mls @ 25 mls/hr IV ONETIME ONE Stop: 11/19/16 19:56 Last Admin: 11/19/16 19:36 Dose: 25 mls/hr Piperacillin Sod/Tazobactam (Sod 4.5 gm/ Sodium Chloride) 100 mls @ 200 mls/hr IV ONETIME ONE Stop: 11/20/16 15:29 Last Admin: 11/20/16 16:35 Dose: 200 mls/hr Ibuprofen (Motrin) 600 mg PO ONETIME ONE Stop: 11/19/16 16:10 Last Admin: 11/19/16 16:12 Dose: 600 mg Iopamidol (Isovue-300 (61%)) 125 ml IVPUSH ONETIME ONE Stop: 11/19/16 13:20 Last Admin: 11/19/16 13:30 Dose: 125 ml Ketorolac Tromethamine (Toradol) 60 mg IM ONETIME ONE Stop: 11/19/16 20:01 Last Admin: 11/19/16 23:14 Dose: 60 mg Ketorolac Tromethamine (Toradol) 30 mg IVPUSH Q6H [facility] Stop: 11/21/16 08:01 Last Admin: 11/20/16 05:00 Dose: Not Given Ketorolac Tromethamine (Toradol) 30 mg IVPUSH Q6H [facility] Stop: 11/21/16 12:01 Last Admin: 11/20/16 11:17 Dose: 30 mg Nicotine (Habitrol) 21 mg TRDERM ONETIME ONE Stop: 11/20/16 08:01 Last Admin: 11/20/16 07:43 Dose: 21 mg Sodium Chloride (Saline Flush) 10 ml FLUSH ONETIME ONE Stop: 11/19/16 13:20 Last Admin: 11/19/16 13:30 Dose: 10 ml - Exam Quality Assessment: DVT Prophylaxis General: Alert, Oriented, Mild Distress HEENT: Pupils Equal, Pupils Reactive, EOMI Neck: Supple, Trachea Midline, No JVD Lungs: Normal Respiratory Effort Cardiovascular: Regular Rate GI/Abdominal Exam: Normal Bowel Sounds, Soft, Non-Tender, No Organomegaly, No Distention (Male) Exam: Deferred Back Exam: Normal Inspection Extremities: Normal Inspection Skin: Warm Neurological: No New Focal Deficit Psy/Mental Status: Alert, Anxious - Problem List & Annotations (1) Crohns disease of small intestine SNOMED Code(s): 60787646 Code(s): K50.00 - CROHN'S DISEASE OF SMALL INTESTINE WITHOUT COMPLICATIONS Status: Acute Current Visit: Yes Qualifiers: Digestive disease complication type: without complication Qualified Code(s) : K50.00 - Crohn's disease of small intestine without complications (2) Fever of unknown origin SNOMED Code(s): 9001733 Code(s): R50.9 - FEVER, UNSPECIFIED Status: Acute Current Visit: Yes (3) Gastroenteritis SNOMED Code(s): 21848884 Code(s): K52.9 - NONINFECTIVE GASTROENTERITIS AND COLITIS, UNSPECIFIED Status: Acute Current Visit: Yes (4) Tobacco dependence SNOMED Code(s): 41697337 Code(s): F17.200 - NICOTINE DEPENDENCE, UNSPECIFIED, UNCOMPLICATED Status: Acute Current Visit: Yes - Problem List Review Problem List Initiated/Reviewed/Updated: Yes - My Orders Last 24 Hours: My Active Orders 11/19/16 17:39 Code Status [Resuscitation Status] Routine 11/19/16 17:58 Antiembolic Devices [RC] 10,22 SRI Hose [Antiembolic Hose] [OM.PC] Routine 11/19/16 18:00 Ondansetron [Zofran] 4 mg IVPUSH Q8H PRN Pantoprazole [ProTONIX IV] 40 mg IVPUSH Q12H metroNIDAZOLE/Normal Saline [Flagyl 500 MG in NS 100 ML] 500 mg Premix Bag 1 bag IV Q8H 11/19/16 18:01 HYDROmorphone [Dilaudid] 1 mg IVPUSH Q8H PRN Remove Patch 1 ea TRDERM Q72H PRN Scopolamine [Transderm-Scop] 1.5 mg TRDERM Q72H PRN 11/19/16 18:03 LORazepam [Ativan] 1 mg IVPUSH Q6H PRN 11/19/16 18:07 Notify Provider Consults [RC] ASDIRECTED 11/19/16 18:30 Consult to Physician [CONS] Routine 11/19/16 19:35 Consult to [place] [CONS] Routine 11/20/16 03:15 FECAL LACTOFERRIN [MREF] Routine 11/20/16 05:38 [place] VIRUS PANEL IGG,IGM [REF] Routine 11/20/16 10:28 Acetaminophen [Tylenol] 650 mg PO Q4H PRN 11/20/16 10:29 Bedrest Bathroom Privileges [RC] ASDIRECTED 11/20/16 11:42 Ibuprofen [Motrin] 600 mg PO Q6H PRN 11/20/16 12:45 Vancomycin Pharmacy to Dose [Pharmacy to Dose - Vancomycin] 0 dose .XX ASDIRECTED PRN 11/20/16 13:00 Vancomycin 1 gm Vancomycin 250 mg Sodium Chloride 0.9% [Normal Saline] 250 ml IV Q12H 11/20/16 14:00 Levofloxacin/Dextrose 5%-Water [Levaquin in D5W 750 MG/150 ML] 750 mg Premix Bag 1 bag IV Q24H 11/20/16 23:00 Piperacillin/Tazobactam [Zosyn] 4.5 gm Sodium Chloride 0.9% [Normal Saline] 100 ml IV Q8H 11/20/16 Lunch Clear Liquid Diet [DIET] 11/21/16 05:00 CBC WITH AUTO DIFF [HEME] DAILY CMP [COMPREHENSIVE METABOLIC PN,CMP] [CHEM] DAILY CRP [C-REACTIVE PROTEIN] [CHEM] DAILY LACTIC ACID [CHEM] DAILY MAGNESIUM [CHEM] DAILY 11/21/16 08:00 Remove Patch 1 ea TRDERM ONETIME ONE 11/22/16 05:00 CBC WITH AUTO DIFF [HEME] DAILY CMP [COMPREHENSIVE METABOLIC PN,CMP] [CHEM] DAILY CRP [C-REACTIVE PROTEIN] [CHEM] DAILY MAGNESIUM [CHEM] DAILY 11/22/16 12:00 VANCOMYCIN TROUGH [CHEM] Timed 11/23/16 05:00 CBC WITH AUTO DIFF [HEME] DAILY CMP [COMPREHENSIVE METABOLIC PN,CMP] [CHEM] DAILY CRP [C-REACTIVE PROTEIN] [CHEM] DAILY MAGNESIUM [CHEM] DAILY - Plan Plan:: Impression: Headache, persisent; empric coverage for bacterial infection and atypical eg [place] Abdominal pain, infectious cf Crohn's Abnormal CT of abdomen/pelvis Chronic diarrhea, character changed to watery Febrile illness--->see number 1 Dehydration, resolved Plan: IVF; ice chips-->advance to clear liquids Pain control IV ATB changed to Ampicillin, Vancomycin, Acyclivir, Rocephin Solumedrol DVT/GI prophylaxis SW/CM consult
[2016-11-20] MEDS: Ondansetron 4 MG/2 ML SDV IVPUSH PRN (18:18)
[2016-11-20] MEDS ORDERED: Ampicillin 2 GM in Sodium Chloride 0.9% 100 ML IV SCH (19:00)
[2016-11-20] MEDS: Ibuprofen 600 MG Tab PO PRN (20:10)
[2016-11-20] MEDS: cefTRIAXone 2 GM in Sodium Chloride 0.9% 100 ML IV SCH (20:14)
[2016-11-20] MEDS: methylPREDNISolone Sodium Succinate 40 MG/1 ML SDV IVPUSH SCH (20:23)
[2016-11-20] MEDS: Scopolamine 1.5 MG Transdermal Patch TRDERM PRN (20:38)
[2016-11-20] MEDS ORDERED: Ipratropium 0.02% 0.5 MG/2.5 ML Neb Soln NEB PRN (20:44)
[2016-11-20] MEDS: HYDROmorphone 1 MG/ML Syringe IVPUSH PRN (21:28)
[2016-11-20] MEDS: Promethazine 12.5 MG in Sodium Chloride 0.9% 50 ML IV SCH (21:48)
[2016-11-20] MEDS ORDERED: Ampicillin 1 GM Vial ONE ×2 (21:52→21:53)
[2016-11-20] MEDS ORDERED: Sodium Chloride 0.9% 100 ML ONE (22:00)
[2016-11-20] MEDS ORDERED: Ampicillin 1 GM in Sodium Chloride 0.9% 100 ML IV SCH (22:00)
[2016-11-20] MEDS ORDERED: Ampicillin 2 GM in Sodium Chloride 0.9% 100 ML IM ONE (22:15)
[2016-11-20] MEDS ORDERED: Piperacillin/Tazobactam 4.5 GM in Sodium Chloride 0.9% 100 ML IV SCH (23:00)
[2016-11-21] MEDS: methylPREDNISolone Sodium Succinate 40 MG/1 ML SDV IVPUSH SCH ×4 (00:28→18:11)
[2016-11-21] MEDS: Vancomycin 1 GM, Vancomycin 250 MG in Sodium Chloride 0.9% 250 ML IV SCH ×2 (01:08→12:37)
[2016-11-21] MEDS ORDERED: Ampicillin 2 GM in Sodium Chloride 0.9% 100 ML IV ONE ×2 (02:00→06:00)
[2016-11-21] MEDS: Promethazine 12.5 MG in Sodium Chloride 0.9% 50 ML IV SCH ×4 (03:05→20:20)
[2016-11-21] MEDS: Sodium Chloride 0.9% 1,000 ML IV SCH ×2 (04:10→20:20)
[2016-11-21] MEDS: HYDROmorphone 1 MG/ML Syringe IVPUSH PRN ×5 (04:48→20:58)
[2016-11-21] MEDS: REMOVE NICOTINE TRDERM ONE ×2 (04:58→08:19)
[2016-11-21] MEDS: Pantoprazole 40 MG Vial IVPUSH SCH ×2 (05:01→18:11)
[2016-11-21] MEDS ORDERED: Ampicillin 2 GM in Sodium Chloride 0.9% 100 ML IV SCH (10:00)
[2016-11-21] MEDS: Nicotine 21 MG/24 Hr Patch TRDERM SCH (10:47)
[2016-11-21] MEDS ORDERED: Ampicillin 500 MG Vial ONE (11:03)
[2016-11-21] MEDS ORDERED: Sodium Chloride 0.9% 100 ML ONE ×2 (11:07→11:08)
[2016-11-21] MEDS: Ibuprofen 600 MG Tab PO PRN (11:32)
[2016-11-21] MEDS: Ampicillin 2 GM in Sodium Chloride 0.9% 100 ML IV SCH ×3 (15:06→22:07)
--- NOTE | 2016-11-21 15:49 | PCM.PN ---
[id number] - Review of Systems General: Reports: Fatigue HEENT: Reports: No Symptoms Pulmonary: Reports: No Symptoms Cardiovascular: Reports: No Symptoms Gastrointestinal: Reports: No Symptoms Genitourinary: Reports: No Symptoms Musculoskeletal: Reports: No Symptoms Skin: Reports: No Symptoms Neurological: Reports: No Symptoms Psychiatric: Reports: No Symptoms - Patient Data Vitals - Most Recent: Last Vital Signs Temp 37.0 C 11/21/16 12:00 Pulse 85 11/21/16 12:00 Resp 10 L 11/21/16 15:04 BP 115/58 L 11/21/16 12:41 Pulse Ox 97 11/21/16 12:00 Weight - Most Recent: 80.649 kg I&O - Last 24 Hours: Intake & Output 11/21/16 11/21/16 11/21/16 06:59 14:59 22:59 Intake Total 1500 875 540 Output Total 200 300 600 Balance 1300 575 -60 Lab Results Last 24 Hours: Laboratory Results - last 24 hr 11/20/16 11/21/16 11/21/16 Range/Units 17:50 06:09 06:09 WBC 12.95 H (4.23-9.07) K/mm3 RBC 4.67 (4.63-6.08) M/mm3 Hgb 13.4 L (13.7-17.5) gm/L Hct 39.4 L (40.1-51.0) % MCV 84.4 (79.0-92.2) fl MCH 28.7 (25.7-32.2) pg MCHC 34.0 (32.2-35.5) g/dl RDW Std Deviation 38.7 (35.1-43.9) fL Plt Count 230 (163-337) K/mm3 MPV 10.9 (9.4-12.3) fl Neut % (Auto) 91.0 H (34.0-67.9) % Lymph % (Auto) 4.2 L (21.8-53.1) % Placer % (Auto) 4.5 L (5.3-12.2) % Eos % (Auto) 0 L (0.8-7.0) Baso % (Auto) 0.1 (0.1-1.2) % Neut # (Auto) 11.78 H (1.78-5.38) K/mm3 Lymph # (Auto) 0.55 L (1.32-3.57) K/mm3 Placer # (Auto) 0.58 (0.30-0.82) K/mm3 Eos # (Auto) 0.00 L (0.04-0.54) K/mm3 Baso # (Auto) 0.01 (0.01-0.08) K/mm3 Manual Slide Review Abnormal smear Sodium 138 (136-145) mEq/L Potassium 4.3 (3.5-5.1) mEq/L Chloride 105 (98-107) mEq/L Carbon Dioxide 23 (21-32) mEq/L Anion Gap 14.3 (5-15) BUN 11 (7-18) mg/dL Creatinine 0.9 (0.7-1.3) mg/dL Est Cr Clr Drug Dosing 107.67 mL/min Estimated GFR (MDRD) > 60 (>60) mL/min BUN/Creatinine Ratio 12.2 L (14-18) Glucose 151 H (74-106) mg/dL Lactic Acid (0.4-2.0) mmol/L Calcium 8.5 (8.5-10.1) mg/dL Magnesium 1.8 (1.8-2.4) mg/dl Total Bilirubin 0.6 (0.2-1.0) mg/dL AST 12 L (15-37) U/L ALT 27 (16-63) U/L Alkaline Phosphatase 66 (46-116) U/L C-Reactive Protein 3.6 H* (<1.0) mg/dL Total Protein 5.8 L (6.4-8.2) g/dl Albumin 2.7 L (3.4-5.0) g/dl Globulin 3.1 gm/dL Albumin/Globulin Ratio 0.9 L (1-2) Urine Opiates Screen Negative (NEGATIVE) Ur Buprenorphine Scrn Negative (NEGATIVE) Ur Oxycodone Screen Negative (NEGATIVE) Urine Methadone Screen Negative (NEGATIVE) Ur Propoxyphene Screen Negative (NEGATIVE) Ur Barbiturates Screen Negative (NEGATIVE) Ur Tricyclics Screen Negative (NEGATIVE) Ur Phencyclidine Scrn Negative (NEGATIVE) Ur Amphetamine Screen Negative (NEGATIVE) U Methamphetamines Scrn Negative (NEGATIVE) U Benzodiazepines Scrn Presumptive positive H (NEGATIVE) U Cocaine Metab Screen Negative (NEGATIVE) U Marijuana (THC) Screen Presumptive positive H (NEGATIVE) 11/21/16 Range/Units 06:09 WBC (4.23-9.07) K/mm3 RBC (4.63-6.08) M/mm3 Hgb (13.7-17.5) gm/L Hct (40.1-51.0) % MCV (79.0-92.2) fl MCH (25.7-32.2) pg MCHC (32.2-35.5) g/dl RDW Std Deviation (35.1-43.9) fL Plt Count (163-337) K/mm3 MPV (9.4-12.3) fl Neut % (Auto) (34.0-67.9) % Lymph % (Auto) (21.8-53.1) % Placer % (Auto) (5.3-12.2) % Eos % (Auto) (0.8-7.0) Baso % (Auto) (0.1-1.2) % Neut # (Auto) (1.78-5.38) K/mm3 Lymph # (Auto) (1.32-3.57) K/mm3 Placer # (Auto) (0.30-0.82) K/mm3 Eos # (Auto) (0.04-0.54) K/mm3 Baso # (Auto) (0.01-0.08) K/mm3 Manual Slide Review Sodium (136-145) mEq/L Potassium (3.5-5.1) mEq/L Chloride (98-107) mEq/L Carbon Dioxide (21-32) mEq/L Anion Gap (5-15) BUN (7-18) mg/dL Creatinine (0.7-1.3) mg/dL Est Cr Clr Drug Dosing mL/min Estimated GFR (MDRD) (>60) mL/min BUN/Creatinine Ratio (14-18) Glucose (74-106) mg/dL Lactic Acid 0.8 (0.4-2.0) mmol/L Calcium (8.5-10.1) mg/dL Magnesium (1.8-2.4) mg/dl Total Bilirubin (0.2-1.0) mg/dL AST (15-37) U/L ALT (16-63) U/L Alkaline Phosphatase (46-116) U/L C-Reactive Protein (<1.0) mg/dL Total Protein (6.4-8.2) g/dl Albumin (3.4-5.0) g/dl Globulin gm/dL Albumin/Globulin Ratio (1-2) Urine Opiates Screen (NEGATIVE) Ur Buprenorphine Scrn (NEGATIVE) Ur Oxycodone Screen (NEGATIVE) Urine Methadone Screen (NEGATIVE) Ur Propoxyphene Screen (NEGATIVE) Ur Barbiturates Screen (NEGATIVE) Ur Tricyclics Screen (NEGATIVE) Ur Phencyclidine Scrn (NEGATIVE) Ur Amphetamine Screen (NEGATIVE) U Methamphetamines Scrn (NEGATIVE) U Benzodiazepines Scrn (NEGATIVE) U Cocaine Metab Screen (NEGATIVE) U Marijuana (THC) Screen (NEGATIVE) Shiv Results Last 24 Hours: Microbiology 11/20/16 03:15 Stool Culture - Preliminary Stool / Feces - Final NEGATIVE FOR SHIGA TOXIN 1 - Final NEGATIVE FOR SHIGA TOXIN 2 11/20/16 03:15 Stool Lactoferrin - Final Stool / Feces Med Orders - Current: Current Medications Acetaminophen (Tylenol) 650 mg PO Q4H PRN PRN Reason: Pain/Fever Last Admin: 11/20/16 14:15 Dose: 650 mg Hydromorphone HCl (Dilaudid) 1 mg IVPUSH Q4H PRN PRN Reason: Pain (severe 7-10) Last Admin: 11/21/16 12:32 Dose: 1 mg Sodium Chloride (Normal Saline) 1,000 mls @ 75 mls/hr IV ASDIRECTED [facility] Last Admin: 11/21/16 04:10 Dose: 75 mls/hr Acyclovir 1,000 mg/ Sodium (Chloride) 120 mls @ 100 mls/hr IV Q8H [facility] Last Admin: 11/21/16 11:25 Dose: 100 mls/hr Vancomycin HCl 1 gm/Vancomycin HCl 250 mg/ Sodium Chloride 250 mls @ 170 mls/ hr IV Q12H [facility] Last Admin: 11/21/16 12:37 Dose: 170 mls/hr Ceftriaxone Sodium 2 gm/ (Sodium Chloride) 100 mls @ 200 mls/hr IV Q24H [facility] Last Admin: 11/20/16 20:14 Dose: 200 mls/hr Promethazine HCl 12.5 mg/ (Sodium Chloride) 50.5 mls @ 100 mls/hr IV Q6H [facility] Last Admin: 11/21/16 14:32 Dose: 100 mls/hr Ampicillin Sodium 2 gm/ Sodium (Chloride) 100 mls @ 200 mls/hr IV Q4H [facility] Last Admin: 11/21/16 15:06 Dose: 200 mls/hr Ibuprofen (Motrin) 600 mg PO Q6H PRN PRN Reason: Pain/Fever Last Admin: 11/21/16 11:32 Dose: 600 mg Ipratropium [place] (Atrovent) 0.5 mg NEB QIDRT PRN PRN Reason: Shortness of Breath Lorazepam (Ativan) 1 mg IVPUSH Q6H PRN PRN Reason: Anxiety Methylprednisolone Sodium Succinate (Solu-Medrol) 40 mg IVPUSH Q6H [facility] Last Admin: 11/21/16 12:32 Dose: 40 mg Miscellaneous Information (Remove Patch) 1 ea TRDERM Q72H PRN PRN Reason: PATCH REMOVAL Miscellaneous Information (Remove Patch) 1 ea TRDERM DAILY [facility] Nicotine (Habitrol) 21 mg TRDERM DAILY [facility] Last Admin: 11/21/16 10:47 Dose: 21 mg Ondansetron HCl (Zofran) 4 mg IVPUSH Q8H PRN PRN Reason: Nausea/Vomiting Last Admin: 11/20/16 18:18 Dose: 4 mg Pantoprazole Sodium (Protonix Iv) 40 mg IVPUSH Q12H [facility] Last Admin: 11/21/16 05:01 Dose: 40 mg Scopolamine (Transderm-Scop) 1.5 mg TRDERM Q72H PRN PRN Reason: Nausea/Vomiting Last Admin: 11/20/16 20:38 Dose: 1.5 mg Discontinued Medications Acetaminophen (Tylenol) 975 mg PO NOW ONE Stop: 11/19/16 10:47 Last Admin: 11/19/16 10:49 Dose: 975 mg Ampicillin Sodium (Ampicillin) Confirm Administered Dose 1 gm .ROUTE .STK-MED ONE Stop: 11/20/16 21:53 Last Admin: 11/20/16 22:18 Dose: Not Given Ampicillin Sodium (Ampicillin) Confirm Administered Dose 1 gm .ROUTE .STK-MED ONE Stop: 11/20/16 21:54 Last Admin: 11/20/16 22:19 Dose: Not Given Ampicillin Sodium (Ampicillin) Confirm Administered Dose 2,000 mg .ROUTE .STK- MED ONE Stop: 11/21/16 11:04 Last Admin: 11/21/16 11:33 Dose: Not Given Diatrizoate Meglum/Diatrizoate Sod (Gastrografin 37%) 90 ml PO ONETIME ONE Stop: 11/19/16 13:20 Last Admin: 11/19/16 13:30 Dose: 90 ml Hydromorphone HCl (Dilaudid) 1 mg IVPUSH Q8H PRN PRN Reason: Pain (severe 7-10) Last Admin: 11/20/16 16:54 Dose: 1 mg Dextrose/Sodium Chloride (Dextrose 5%-Normal Saline) 1,000 mls @ 999 mls/hr IV ASDIRECTED [facility] Last Admin: 11/19/16 10:08 Dose: 999 mls/hr Levofloxacin/Dextrose 750 mg/ (Premix) 150 mls @ 100 mls/hr IV ONETIME ONE Stop: 11/19/16 15:44 Last Admin: 11/19/16 14:32 Dose: 100 mls/hr Sodium Chloride (Sodium Chloride 0.45%) 1,000 mls @ 999 mls/hr IV ASDIRECTED [facility] Stop: 11/20/16 19:01 Last Admin: 11/19/16 20:00 Dose: 999 mls/hr Metronidazole 500 mg/ Premix 100 mls @ 100 mls/hr IV Q8H [facility] Last Admin: 11/20/16 17:42 Dose: 100 mls/hr Magnesium Sulfate 2 gm/ Premix 50 mls @ 25 mls/hr IV ONETIME ONE Stop: 11/19/16 19:56 Last Admin: 11/19/16 19:36 Dose: 25 mls/hr Levofloxacin/Dextrose 750 mg/ (Premix) 150 mls @ 100 mls/hr IV Q24H [facility] Last Admin: 11/20/16 14:48 Dose: 100 mls/hr Vancomycin HCl 1 gm/Vancomycin HCl 250 mg/ Sodium Chloride 250 mls @ 166 mls/ hr IV Q12H [facility] Last Admin: 11/20/16 12:58 Dose: 166 mls/hr Piperacillin Sod/Tazobactam (Sod 4.5 gm/ Sodium Chloride) 100 mls @ 200 mls/hr IV ONETIME ONE Stop: 11/20/16 15:29 Last Admin: 11/20/16 16:35 Dose: 200 mls/hr Piperacillin Sod/Tazobactam (Sod 4.5 gm/ Sodium Chloride) 100 mls @ 25 mls/hr IV Q8H [facility] Ampicillin Sodium 2 gm/ Sodium (Chloride) 100 mls @ 200 mls/hr IV Q4H [facility] Last Admin: 11/20/16 21:42 Dose: Not Given Ampicillin Sodium 1 gm/ Sodium (Chloride) 100 mls @ 200 mls/hr IV Q30M [facility] Stop: 11/20/16 22:59 Ampicillin Sodium 2 gm/ Sodium (Chloride) 100 mls @ 200 mls/hr IV ONETIME ONE Stop: 11/21/16 02:29 Last Admin: 11/21/16 02:27 Dose: 200 mls/hr Ampicillin Sodium 2 gm/ Sodium (Chloride) 100 mls @ 200 mls/hr IV ONETIME ONE Stop: 11/21/16 06:29 Last Admin: 11/21/16 06:26 Dose: 200 mls/hr Ampicillin Sodium 2 gm/ Sodium (Chloride) 100 mls @ 200 mls/hr IV Q4H [facility] Last Admin: 11/21/16 11:28 Dose: 200 mls/hr Ampicillin Sodium 2 gm/ Sodium (Chloride) 100 mls @ 200 mls/hr IM ONETIME ONE Stop: 11/20/16 22:44 Last Infusion: 11/20/16 22:20 Dose: Infused Sodium Chloride (Normal Saline) Confirm Administered Dose 100 mls @ as directed .ROUTE .STK-MED ONE Stop: 11/20/16 22:01 Last Admin: 11/20/16 22:19 Dose: Not Given Sodium Chloride (Normal Saline) Confirm Administered Dose 100 mls @ as directed .ROUTE .STK-MED ONE Stop: 11/21/16 11:08 Last Admin: 11/21/16 11:33 Dose: Not Given Sodium Chloride (Normal Saline) Confirm Administered Dose 100 mls @ as directed .ROUTE .STK-MED ONE Stop: 11/21/16 11:09 Last Admin: 11/21/16 11:34 Dose: Not Given Ibuprofen (Motrin) 600 mg PO ONETIME ONE Stop: 11/19/16 16:10 Last Admin: 11/19/16 16:12 Dose: 600 mg Iopamidol (Isovue-300 (61%)) 125 ml IVPUSH ONETIME ONE Stop: 11/19/16 13:20 Last Admin: 11/19/16 13:30 Dose: 125 ml Ketorolac Tromethamine (Toradol) 60 mg IM ONETIME ONE Stop: 11/19/16 20:01 Last Admin: 11/19/16 23:14 Dose: 60 mg Ketorolac Tromethamine (Toradol) 30 mg IVPUSH Q6H [facility] Stop: 11/21/16 08:01 Last Admin: 11/20/16 05:00 Dose: Not Given Ketorolac Tromethamine (Toradol) 30 mg IVPUSH Q6H [facility] Stop: 11/21/16 12:01 Last Admin: 11/20/16 11:17 Dose: 30 mg Miscellaneous Information (Remove Patch) 1 ea TRDERM ONETIME ONE Stop: 11/21/16 08:01 Last Admin: 11/21/16 08:19 Dose: Not Given Nicotine (Habitrol) 21 mg TRDERM ONETIME ONE Stop: 11/20/16 08:01 Last Admin: 11/20/16 07:43 Dose: 21 mg Sodium Chloride (Saline Flush) 10 ml FLUSH ONETIME ONE Stop: 11/19/16 13:20 Last Admin: 11/19/16 13:30 Dose: 10 ml Vancomycin HCl (Pharmacy To Dose - Vancomycin) 0 dose .XX ASDIRECTED PRN PRN Reason: RX TO DOSE VANCOMYCIN - Exam Quality Assessment: DVT Prophylaxis General: Alert, Oriented, Cooperative, No Acute Distress HEENT: Pupils Equal, Pupils Reactive, EOMI Neck: Supple, Trachea Midline, No JVD Lungs: Normal Respiratory Effort Cardiovascular: Regular Rate, Regular Rhythm GI/Abdominal Exam: Normal Bowel Sounds, Soft, Non-Tender, No Organomegaly, No Distention (Male) Exam: Deferred Back Exam: Normal Inspection Extremities: Normal Inspection, No Pedal Edema Skin: Warm Neurological: No New Focal Deficit Psy/Mental Status: Alert, Normal Affect, Normal Mood - Problem List & Annotations (1) Crohns disease of small intestine SNOMED Code(s): 56996289 Code(s): K50.00 - CROHN'S DISEASE OF SMALL INTESTINE WITHOUT COMPLICATIONS Status: Acute Qualifiers: Digestive disease complication type: without complication Qualified Code(s) : K50.00 - Crohn's disease of small intestine without complications (2) Fever of unknown origin SNOMED Code(s): 8916710 Code(s): R50.9 - FEVER, UNSPECIFIED Status: Acute Priority: High (3) Gastroenteritis SNOMED Code(s): 33919559 Code(s): K52.9 - NONINFECTIVE GASTROENTERITIS AND COLITIS, UNSPECIFIED Status: Acute Priority: High (4) Tobacco dependence SNOMED Code(s): 66752751 Code(s): F17.200 - NICOTINE DEPENDENCE, UNSPECIFIED, UNCOMPLICATED Status: Acute - Problem List Review Problem List Initiated/Reviewed/Updated: Yes - My Orders Last 24 Hours: My Active Orders 11/20/16 18:40 CXR [Chest 2V] [CR] Routine 11/20/16 18:45 methylPREDNISolone Sod Succ [Solu-MEDROL] 40 mg IVPUSH Q6H 11/20/16 19:00 Patient Status [ADT] Routine Acyclovir [Zovirax] 1,000 mg Sodium Chloride 0.9% [Normal Saline] 100 ml IV Q8H 11/20/16 20:00 cefTRIAXone [Rocephin] 2 gm Sodium Chloride 0.9% [Normal Saline] 100 ml IV Q24H 11/20/16 20:35 HYDROmorphone [Dilaudid] 1 mg IVPUSH Q4H PRN 11/20/16 20:44 Ipratropium [Atrovent] 0.5 mg NEB QIDRT PRN 11/20/16 20:45 Promethazine [Phenergan] 12.5 mg Sodium Chloride 0.9% [Normal Saline] 50 ml IV Q6H 11/21/16 01:00 Vancomycin 1 gm Vancomycin 250 mg Sodium Chloride 0.9% [Normal Saline] 250 ml IV Q12H 11/21/16 10:15 Nicotine [Habitrol] 21 mg TRDERM DAILY 11/21/16 14:00 Ampicillin 2 gm Sodium Chloride 0.9% [Normal Saline] 100 ml IV Q4H 11/21/16 Dinner Soft Diet [DIET] 11/21/16 Lunch Full Liquid Diet [DIET] 11/22/16 05:00 CBC WITH AUTO DIFF [HEME] DAILY CMP [COMPREHENSIVE METABOLIC PN,CMP] [CHEM] DAILY CRP [C-REACTIVE PROTEIN] [CHEM] DAILY MAGNESIUM [CHEM] DAILY 11/22/16 12:00 VANCOMYCIN TROUGH [CHEM] Timed 11/23/16 05:00 CBC WITH AUTO DIFF [HEME] DAILY CMP [COMPREHENSIVE METABOLIC PN,CMP] [CHEM] DAILY CRP [C-REACTIVE PROTEIN] [CHEM] DAILY MAGNESIUM [CHEM] DAILY - Plan Plan:: Impression: Headache, persisent; empric coverage for bacterial infection and atypical eg West Nile Abdominal pain, infectious cf Crohn's Abnormal CT of abdomen/pelvis Chronic diarrhea, character changed to watery Febrile illness--->see number 1 Dehydration, resolved Plan: IVF; ice chips-->advance to clear liquids Pain control IV ATB changed to Ampicillin, Vancomycin, Acyclivir, Rocephin Discuss LP, if not agreeable, continue empiric coverage Solumedrol DVT/GI prophylaxis SW/CM consult
[2016-11-21] MEDS: cefTRIAXone 2 GM in Sodium Chloride 0.9% 100 ML IV SCH (20:58)
[2016-11-22] MEDS: methylPREDNISolone Sodium Succinate 40 MG/1 ML SDV IVPUSH SCH ×5 (00:44→21:26)
[2016-11-22] MEDS: Vancomycin 1 GM, Vancomycin 250 MG in Sodium Chloride 0.9% 250 ML IV SCH (00:46)
[2016-11-22] MEDS: HYDROmorphone 1 MG/ML Syringe IVPUSH PRN ×4 (01:33→17:30)
[2016-11-22] MEDS: LORazepam 2 MG/ML MDV IVPUSH PRN (01:35)
[2016-11-22] MEDS: Ampicillin 2 GM in Sodium Chloride 0.9% 100 ML IV SCH ×6 (02:32→21:59)
[2016-11-22] MEDS: Promethazine 12.5 MG in Sodium Chloride 0.9% 50 ML IV SCH ×2 (03:47→08:28)
[2016-11-22] MEDS: Pantoprazole 40 MG Vial IVPUSH SCH ×2 (05:32→17:31)
[2016-11-22] MEDS: Ibuprofen 600 MG Tab PO PRN ×2 (05:44→17:43)
[2016-11-22] MEDS: Nicotine 21 MG/24 Hr Patch TRDERM SCH (08:45)
[2016-11-22] MEDS: Sodium Chloride 0.9% 1,000 ML IV SCH ×2 (09:24→23:59)
[2016-11-22] MEDS ORDERED: Magnesium Sulfate/Water 2 GM in Premix Bag 1 BAG IV ONE ×2 (09:37→15:30)
[2016-11-22] MEDS ORDERED: Promethazine 12.5 MG in Sodium Chloride 0.9% 50 ML IV PRN (11:05)
--- NOTE | 2016-11-22 11:32 | PCM.PN ---
- General Info Date of Service: 11/22/16 Functional Status: Reports: Pain Controlled (no headache), Tolerating Diet - Review of Systems General: Reports: No Symptoms HEENT: Reports: No Symptoms Pulmonary: Reports: No Symptoms Cardiovascular: Reports: No Symptoms Gastrointestinal: Reports: No Symptoms Genitourinary: Reports: No Symptoms Musculoskeletal: Reports: No Symptoms Skin: Reports: No Symptoms Neurological: Reports: Dizziness Psychiatric: Reports: No Symptoms - Patient Data Vitals - Most Recent: Last Vital Signs Temp 36.8 C 11/22/16 08:00 Pulse 95 11/22/16 08:00 Resp 14 11/22/16 08:00 BP 126/87 11/22/16 08:00 Pulse Ox 98 11/22/16 08:00 Weight - Most Recent: 80.014 kg I&O - Last 24 Hours: Intake & Output 11/21/16 11/22/16 11/22/16 22:59 06:59 14:59 Intake Total 1340 2350 Output Total 1550 250 Balance -210 2100 Lab Results Last 24 Hours: Laboratory Results - last 24 hr 11/22/16 11/22/16 Range/Units 05:26 05:26 WBC 15.21 H (4.23-9.07) K/mm3 RBC 4.63 (4.63-6.08) M/mm3 Hgb 13.6 L (13.7-17.5) gm/L Hct 39.2 L (40.1-51.0) % MCV 84.7 (79.0-92.2) fl MCH 29.4 (25.7-32.2) pg MCHC 34.7 (32.2-35.5) g/dl RDW Std Deviation 39.4 (35.1-43.9) fL Plt Count 248 (163-337) K/mm3 MPV 11.1 (9.4-12.3) fl Neut % (Auto) 85.9 H (34.0-67.9) % Lymph % (Auto) 5.7 L (21.8-53.1) % [place] % (Auto) 8.0 (5.3-12.2) % Eos % (Auto) 0 L (0.8-7.0) Baso % (Auto) 0.1 (0.1-1.2) % Neut # (Auto) 13.06 H (1.78-5.38) K/mm3 Lymph # (Auto) 0.87 L (1.32-3.57) K/mm3 [place] # (Auto) 1.22 H (0.30-0.82) K/mm3 Eos # (Auto) 0.00 L (0.04-0.54) K/mm3 Baso # (Auto) 0.01 (0.01-0.08) K/mm3 Manual Slide Review Abnormal smear Sodium 139 (136-145) mEq/L Potassium 3.9 (3.5-5.1) mEq/L Chloride 105 (98-107) mEq/L Carbon Dioxide 25 (21-32) mEq/L Anion Gap 12.9 (5-15) BUN 14 (7-18) mg/dL Creatinine 1.1 (0.7-1.3) mg/dL Est Cr Clr Drug Dosing 88.09 mL/min Estimated GFR (MDRD) > 60 (>60) mL/min BUN/Creatinine Ratio 12.7 L (14-18) Glucose 163 H (74-106) mg/dL Calcium 8.6 (8.5-10.1) mg/dL Magnesium 1.7 L (1.8-2.4) mg/dl Total Bilirubin 0.3 (0.2-1.0) mg/dL AST 20 (15-37) U/L ALT 31 (16-63) U/L Alkaline Phosphatase 65 (46-116) U/L C-Reactive Protein 2.2 H* (<1.0) mg/dL Total Protein 6.1 L (6.4-8.2) g/dl Albumin 2.7 L (3.4-5.0) g/dl Globulin 3.4 gm/dL Albumin/Globulin Ratio 0.8 L (1-2) Shiv Results Last 24 Hours: Microbiology 11/20/16 03:15 Stool Culture - Preliminary Stool / Feces - Final NEGATIVE FOR SHIGA TOXIN 1 - Final NEGATIVE FOR SHIGA TOXIN 2 11/20/16 03:15 Stool Lactoferrin - Final Stool / Feces Med Orders - Current: Current Medications Acetaminophen (Tylenol) 650 mg PO Q4H PRN PRN Reason: Pain/Fever Last Admin: 11/20/16 14:15 Dose: 650 mg Hydromorphone HCl (Dilaudid) 1 mg IVPUSH Q4H PRN PRN Reason: Pain (severe 7-10) Last Admin: 11/22/16 05:32 Dose: 1 mg Sodium Chloride (Normal Saline) 1,000 mls @ 75 mls/hr IV ASDIRECTED [facility] Last Admin: 11/22/16 09:24 Dose: 75 mls/hr Acyclovir 1,000 mg/ Sodium (Chloride) 120 mls @ 100 mls/hr IV Q8H [facility] Last Admin: 11/22/16 11:25 Dose: 100 mls/hr Vancomycin HCl 1 gm/Vancomycin HCl 250 mg/ Sodium Chloride 250 mls @ 170 mls/ hr IV Q12H [facility] Last Admin: 11/22/16 00:46 Dose: 170 mls/hr Ceftriaxone Sodium 2 gm/ (Sodium Chloride) 100 mls @ 200 mls/hr IV Q24H [facility] Last Admin: 11/21/16 20:58 Dose: 200 mls/hr Ampicillin Sodium 2 gm/ Sodium (Chloride) 100 mls @ 200 mls/hr IV Q4H [facility] Last Admin: 11/22/16 09:54 Dose: 200 mls/hr Magnesium Sulfate 2 gm/ Premix 50 mls @ 25 mls/hr IV ONETIME ONE Stop: 11/22/16 17:29 Promethazine HCl 12.5 mg/ (Sodium Chloride) 50.5 mls @ 100 mls/hr IV Q6H PRN PRN Reason: Nausea Ibuprofen (Motrin) 600 mg PO Q6H PRN PRN Reason: Pain/Fever Last Admin: 11/22/16 05:44 Dose: 600 mg Ipratropium Steward (Atrovent) 0.5 mg NEB QIDRT PRN PRN Reason: Shortness of Breath Lorazepam (Ativan) 1 mg IVPUSH Q6H PRN PRN Reason: Anxiety Last Admin: 11/22/16 01:35 Dose: 1 mg Methylprednisolone Sodium Succinate (Solu-Medrol) 40 mg IVPUSH Q6H [facility] Last Admin: 11/22/16 05:45 Dose: 40 mg Miscellaneous Information (Remove Patch) 1 ea TRDERM Q72H PRN PRN Reason: PATCH REMOVAL Miscellaneous Information (Remove Patch) 1 ea TRDERM DAILY [facility] Last Admin: 11/22/16 08:46 Dose: 1 ea Nicotine (Habitrol) 21 mg TRDERM DAILY [facility] Last Admin: 11/22/16 08:45 Dose: 21 mg Ondansetron HCl (Zofran) 4 mg IVPUSH Q8H PRN PRN Reason: Nausea/Vomiting Last Admin: 11/20/16 18:18 Dose: 4 mg Pantoprazole Sodium (Protonix Iv) 40 mg IVPUSH Q12H [facility] Last Admin: 11/22/16 05:32 Dose: 40 mg Scopolamine (Transderm-Scop) 1.5 mg TRDERM Q72H PRN PRN Reason: Nausea/Vomiting Last Admin: 11/20/16 20:38 Dose: 1.5 mg Discontinued Medications Acetaminophen (Tylenol) 975 mg PO NOW ONE Stop: 11/19/16 10:47 Last Admin: 11/19/16 10:49 Dose: 975 mg Ampicillin Sodium (Ampicillin) Confirm Administered Dose 1 gm .ROUTE .STK-MED ONE Stop: 11/20/16 21:53 Last Admin: 11/20/16 22:18 Dose: Not Given Ampicillin Sodium (Ampicillin) Confirm Administered Dose 1 gm .ROUTE .STK-MED ONE Stop: 11/20/16 21:54 Last Admin: 11/20/16 22:19 Dose: Not Given Ampicillin Sodium (Ampicillin) Confirm Administered Dose 2,000 mg .ROUTE .STK- MED ONE Stop: 11/21/16 11:04 Last Admin: 11/21/16 11:33 Dose: Not Given Diatrizoate Meglum/Diatrizoate Sod (Gastrografin 37%) 90 ml PO ONETIME ONE Stop: 11/19/16 13:20 Last Admin: 11/19/16 13:30 Dose: 90 ml Hydromorphone HCl (Dilaudid) 1 mg IVPUSH Q8H PRN PRN Reason: Pain (severe 7-10) Last Admin: 11/20/16 16:54 Dose: 1 mg Dextrose/Sodium Chloride (Dextrose 5%-Normal Saline) 1,000 mls @ 999 mls/hr IV ASDIRECTED [facility] Last Admin: 11/19/16 10:08 Dose: 999 mls/hr Levofloxacin/Dextrose 750 mg/ (Premix) 150 mls @ 100 mls/hr IV ONETIME ONE Stop: 11/19/16 15:44 Last Admin: 11/19/16 14:32 Dose: 100 mls/hr Sodium Chloride (Sodium Chloride 0.45%) 1,000 mls @ 999 mls/hr IV ASDIRECTED [facility] Stop: 11/20/16 19:01 Last Admin: 11/19/16 20:00 Dose: 999 mls/hr Metronidazole 500 mg/ Premix 100 mls @ 100 mls/hr IV Q8H [facility] Last Admin: 11/20/16 17:42 Dose: 100 mls/hr Magnesium Sulfate 2 gm/ Premix 50 mls @ 25 mls/hr IV ONETIME ONE Stop: 11/19/16 19:56 Last Admin: 11/19/16 19:36 Dose: 25 mls/hr Levofloxacin/Dextrose 750 mg/ (Premix) 150 mls @ 100 mls/hr IV Q24H [facility] Last Admin: 11/20/16 14:48 Dose: 100 mls/hr Vancomycin HCl 1 gm/Vancomycin HCl 250 mg/ Sodium Chloride 250 mls @ 166 mls/ hr IV Q12H [facility] Last Admin: 11/20/16 12:58 Dose: 166 mls/hr Piperacillin Sod/Tazobactam (Sod 4.5 gm/ Sodium Chloride) 100 mls @ 200 mls/hr IV ONETIME ONE Stop: 11/20/16 15:29 Last Admin: 11/20/16 16:35 Dose: 200 mls/hr Piperacillin Sod/Tazobactam (Sod 4.5 gm/ Sodium Chloride) 100 mls @ 25 mls/hr IV Q8H [facility] Ampicillin Sodium 2 gm/ Sodium (Chloride) 100 mls @ 200 mls/hr IV Q4H [facility] Last Admin: 11/20/16 21:42 Dose: Not Given Promethazine HCl 12.5 mg/ (Sodium Chloride) 50.5 mls @ 100 mls/hr IV Q6H [facility] Last Admin: 11/22/16 08:28 Dose: 100 mls/hr Ampicillin Sodium 1 gm/ Sodium (Chloride) 100 mls @ 200 mls/hr IV Q30M [facility] Stop: 11/20/16 22:59 Ampicillin Sodium 2 gm/ Sodium (Chloride) 100 mls @ 200 mls/hr IV ONETIME ONE Stop: 11/21/16 02:29 Last Admin: 11/21/16 02:27 Dose: 200 mls/hr Ampicillin Sodium 2 gm/ Sodium (Chloride) 100 mls @ 200 mls/hr IV ONETIME ONE Stop: 11/21/16 06:29 Last Admin: 11/21/16 06:26 Dose: 200 mls/hr Ampicillin Sodium 2 gm/ Sodium (Chloride) 100 mls @ 200 mls/hr IV Q4H [facility] Last Admin: 11/21/16 11:28 Dose: 200 mls/hr Ampicillin Sodium 2 gm/ Sodium (Chloride) 100 mls @ 200 mls/hr IM ONETIME ONE Stop: 11/20/16 22:44 Last Infusion: 11/20/16 22:20 Dose: Infused Sodium Chloride (Normal Saline) Confirm Administered Dose 100 mls @ as directed .ROUTE .STK-MED ONE Stop: 11/20/16 22:01 Last Admin: 11/20/16 22:19 Dose: Not Given Sodium Chloride (Normal Saline) Confirm Administered Dose 100 mls @ as directed .ROUTE .STK-MED ONE Stop: 11/21/16 11:08 Last Admin: 11/21/16 11:33 Dose: Not Given Sodium Chloride (Normal Saline) Confirm Administered Dose 100 mls @ as directed .ROUTE .STK-MED ONE Stop: 11/21/16 11:09 Last Admin: 11/21/16 11:34 Dose: Not Given Magnesium Sulfate 2 gm/ Premix 50 mls @ 25 mls/hr IV ONETIME ONE Stop: 11/22/16 11:36 Ibuprofen (Motrin) 600 mg PO ONETIME ONE Stop: 11/19/16 16:10 Last Admin: 11/19/16 16:12 Dose: 600 mg Iopamidol (Isovue-300 (61%)) 125 ml IVPUSH ONETIME ONE Stop: 11/19/16 13:20 Last Admin: 11/19/16 13:30 Dose: 125 ml Ketorolac Tromethamine (Toradol) 60 mg IM ONETIME ONE Stop: 11/19/16 20:01 Last Admin: 11/19/16 23:14 Dose: 60 mg Ketorolac Tromethamine (Toradol) 30 mg IVPUSH Q6H [facility] Stop: 11/21/16 08:01 Last Admin: 11/20/16 05:00 Dose: Not Given Ketorolac Tromethamine (Toradol) 30 mg IVPUSH Q6H [facility] Stop: 11/21/16 12:01 Last Admin: 11/20/16 11:17 Dose: 30 mg Miscellaneous Information (Remove Patch) 1 ea TRDERM ONETIME ONE Stop: 11/21/16 08:01 Last Admin: 11/21/16 08:19 Dose: Not Given Nicotine (Habitrol) 21 mg TRDERM ONETIME ONE Stop: 11/20/16 08:01 Last Admin: 11/20/16 07:43 Dose: 21 mg Sodium Chloride (Saline Flush) 10 ml FLUSH ONETIME ONE Stop: 11/19/16 13:20 Last Admin: 11/19/16 13:30 Dose: 10 ml Vancomycin HCl (Pharmacy To Dose - Vancomycin) 0 dose .XX ASDIRECTED PRN PRN Reason: RX TO DOSE VANCOMYCIN - Exam Quality Assessment: DVT Prophylaxis General: Alert, Oriented, Cooperative, No Acute Distress, Other (Negative orthostatics) HEENT: Pupils Equal, Pupils Reactive, EOMI Neck: Supple, Trachea Midline, No JVD Lungs: Normal Respiratory Effort Cardiovascular: Regular Rate, Regular Rhythm GI/Abdominal Exam: Normal Bowel Sounds, Soft, Non-Tender, No Organomegaly, No Distention (Male) Exam: Deferred Back Exam: Normal Inspection Extremities: Normal Inspection Skin: Warm Neurological: No New Focal Deficit, Normal Gait, Normal Speech Psy/Mental Status: Alert, Normal Affect, Normal Mood - Problem List & Annotations (1) Crohns disease of small intestine SNOMED Code(s): 36010984 Code(s): K50.00 - CROHN'S DISEASE OF SMALL INTESTINE WITHOUT COMPLICATIONS Status: Acute Qualifiers: Digestive disease complication type: without complication Qualified Code(s) : K50.00 - Crohn's disease of small intestine without complications (2) Fever of unknown origin SNOMED Code(s): 9275693 Code(s): R50.9 - FEVER, UNSPECIFIED Status: Acute Priority: High (3) Gastroenteritis SNOMED Code(s): 36087105 Code(s): K52.9 - NONINFECTIVE GASTROENTERITIS AND COLITIS, UNSPECIFIED Status: Acute Priority: High (4) Tobacco dependence SNOMED Code(s): 00544472 Code(s): F17.200 - NICOTINE DEPENDENCE, UNSPECIFIED, UNCOMPLICATED Status: Acute - Problem List Review Problem List Initiated/Reviewed/Updated: Yes - My Orders Last 24 Hours: My Active Orders 08/12/17 14:00 Ampicillin 2 gm Sodium Chloride 0.9% [Normal Saline] 100 ml IV Q4H 11/22/16 11:05 Promethazine [Phenergan] 12.5 mg Sodium Chloride 0.9% [Normal Saline] 50 ml IV Q6H 11/22/16 12:00 VANCOMYCIN TROUGH [CHEM] Timed 11/22/16 15:30 Magnesium Sulfate/Water [Magnesium Sulfate 2 GM in Water 50 ML] 2 gm Premix Bag 1 bag IV ONETIME 11/22/16 Lunch Regular Diet [DIET] 11/23/16 05:00 CBC WITH AUTO DIFF [HEME] DAILY CMP [COMPREHENSIVE METABOLIC PN,CMP] [CHEM] DAILY CRP [C-REACTIVE PROTEIN] [CHEM] DAILY MAGNESIUM [CHEM] DAILY - Plan Plan:: Impression: Headache, persisent; empric coverage for bacterial infection and atypical eg West Nile Abdominal pain, infectious cf Crohn's Abnormal CT of abdomen/pelvis Chronic diarrhea, character changed to watery Febrile illness--->see number 1 Dehydration, resolved Plan: IVF; ice chips-->advance as tolerated, episodes of nausea have resolved Change antiemetic to as needed. Pain control IV ATB changed to Ampicillin, Vancomycin, Acyclivir, Rocephin Solumedrol DVT/GI prophylaxis SW/CM consult LOS>96 hours for treatment
[2016-11-22] MEDS ORDERED: Vancomycin 1 GM, Vancomycin 250 MG in Sodium Chloride 0.9% 250 ML IV SCH (13:00)
[2016-11-22] MEDS: Saccharomyces Boulardii (Probiotic) 250 MG Cap PO SCH ×2 (13:12→21:26)
--- NOTE | 2016-11-22 13:48 | CR ---
Chest: Two views of the chest were obtained. Comparison: Previous chest x-ray of 11/19/16. Lung markings are mildly increased on the right side which appear fairly stable from prior chest x-ray. Slight blunting of the right lateral costophrenic angle is seen which is stable from prior study. No acute infiltrates are seen. Heart size and mediastinum are normal. Bony structures appear within normal limits for the patient's age. Impression: 1. Findings as described above. No significant interval change is appreciated from prior chest x-ray. Diagnostic code #3 I agree with preliminary report issued by [facility] ([facility] report finalized on 11/20/16, 9:17 PM Central Time)
[2016-11-22] MEDS: cefTRIAXone 2 GM in Sodium Chloride 0.9% 100 ML IV SCH (21:26)
[2016-11-22] MEDS ORDERED: Temazepam 15 MG Cap PO PRN (21:50)
[2016-11-23] MEDS: Ampicillin 2 GM in Sodium Chloride 0.9% 100 ML IV SCH ×3 (02:08→09:40)
[2016-11-23] MEDS: Pantoprazole 40 MG Vial IVPUSH SCH (05:23)
[2016-11-23] MEDS: methylPREDNISolone Sodium Succinate 40 MG/1 ML SDV IVPUSH SCH ×3 (05:24→21:29)
[2016-11-23] MEDS: HYDROmorphone 1 MG/ML Syringe IVPUSH PRN ×3 (06:07→19:26)
[2016-11-23] MEDS: Nicotine 21 MG/24 Hr Patch TRDERM SCH (08:35)
[2016-11-23] MEDS: Pantoprazole 40 MG Tab.CR PO SCH ×2 (08:49→11:16)
[2016-11-23] MEDS: Ibuprofen 600 MG Tab PO PRN ×2 (08:49)
[2016-11-23] MEDS: Saccharomyces Boulardii (Probiotic) 250 MG Cap PO SCH ×2 (08:49→21:30)
[2016-11-23] MEDS ORDERED: Sodium Chloride 0.9% 1,000 ML ONE (09:59)
[2016-11-23] MEDS: Sodium Chloride 0.9% 1,000 ML IV SCH ×5 (10:11→21:30)
[2016-11-23] MEDS: Acetaminophen/Butalbital/Caffeine 325-50-40 MG Tab PO PRN ×2 (12:42→21:50)
--- NOTE | 2016-11-23 12:47 | PCM.PN ---
- General Info Date of Service: 11/23/16 Functional Status: Reports: Tolerating Diet, Ambulating - Review of Systems General: Reports: No Symptoms HEENT: Reports: Headaches Pulmonary: Reports: No Symptoms Cardiovascular: Reports: No Symptoms Gastrointestinal: Reports: Diarrhea Genitourinary: Reports: No Symptoms Musculoskeletal: Reports: No Symptoms Skin: Reports: No Symptoms Neurological: Reports: Dizziness Psychiatric: Reports: No Symptoms - Patient Data Vitals - Most Recent: Last Vital Signs Temp 36.7 C 11/23/16 12:00 Pulse 82 11/22/16 16:00 Resp 16 11/23/16 12:00 BP 129/89 11/23/16 12:00 Pulse Ox 97 11/23/16 12:00 Orthostatic Blood Pressure [ 140/94 Standing] Orthostatic Blood Pressure [ 137/87 Sitting] Orthostatic Blood Pressure [ 138/85 Supine] Weight - Most Recent: 81.193 kg I&O - Last 24 Hours: Intake & Output 11/22/16 11/23/16 11/23/16 22:59 06:59 14:59 Intake Total 2636 1825 3920 Output Total 750 1450 1100 Balance 8357 855 5971 Lab Results Last 24 Hours: Laboratory Results - last 24 hr 11/23/16 11/23/16 Range/Units 05:50 05:50 WBC 14.21 H (4.23-9.07) K/mm3 RBC 4.33 L (4.63-6.08) M/mm3 Hgb 12.6 L (13.7-17.5) gm/L Hct 36.5 L (40.1-51.0) % MCV 84.3 (79.0-92.2) fl MCH 29.1 (25.7-32.2) pg MCHC 34.5 (32.2-35.5) g/dl RDW Std Deviation 39.5 (35.1-43.9) fL Plt Count 259 (163-337) K/mm3 MPV 11.1 (9.4-12.3) fl Neut % (Auto) 84.0 H (34.0-67.9) % Lymph % (Auto) 6.4 L (21.8-53.1) % [place] % (Auto) 9.3 (5.3-12.2) % Eos % (Auto) 0 L (0.8-7.0) Baso % (Auto) 0.1 (0.1-1.2) % Neut # (Auto) 11.94 H (1.78-5.38) K/mm3 Lymph # (Auto) 0.91 L (1.32-3.57) K/mm3 [place] # (Auto) 1.32 H (0.30-0.82) K/mm3 Eos # (Auto) 0.00 L (0.04-0.54) K/mm3 Baso # (Auto) 0.01 (0.01-0.08) K/mm3 Manual Slide Review Abnormal smear Sodium 140 (136-145) mEq/L Potassium 3.7 (3.5-5.1) mEq/L Chloride 107 (98-107) mEq/L Carbon Dioxide 25 (21-32) mEq/L Anion Gap 11.7 (5-15) BUN 17 (7-18) mg/dL Creatinine 1.0 (0.7-1.3) mg/dL Est Cr Clr Drug Dosing 96.90 mL/min Estimated GFR (MDRD) > 60 (>60) mL/min BUN/Creatinine Ratio 17.0 (14-18) Glucose 147 H (74-106) mg/dL Calcium 8.6 (8.5-10.1) mg/dL Magnesium 1.9 (1.8-2.4) mg/dl Total Bilirubin 0.2 (0.2-1.0) mg/dL AST 53 H (15-37) U/L ALT 105 H (16-63) U/L Alkaline Phosphatase 57 (46-116) U/L C-Reactive Protein 0.9 (<1.0) mg/dL Total Protein 5.7 L (6.4-8.2) g/dl Albumin 2.6 L (3.4-5.0) g/dl Globulin 3.1 gm/dL Albumin/Globulin Ratio 0.8 L (1-2) Shiv Results Last 24 Hours: Microbiology 11/20/16 03:15 Stool Culture - Final Stool / Feces NORMAL ENTERIC LORENZO. NO SALMONELLA, SHIGELLA, CAMPYLOBACTER, E.COLI O157 OR YERSINIA ISOLATED. - Final NEGATIVE FOR SHIGA TOXIN 1 - Final NEGATIVE FOR SHIGA TOXIN 2 Med Orders - Current: Current Medications Acetaminophen (Tylenol) 650 mg PO Q4H PRN PRN Reason: Pain/Fever Last Admin: 11/20/16 14:15 Dose: 650 mg Acetaminophen/Butalbital/Caffeine (Fioricet 325-50-40 Mg) 1 tab PO Q4H PRN PRN Reason: Headache Last Admin: 11/23/16 12:42 Dose: 2 tab Hydromorphone HCl (Dilaudid) 1 mg IVPUSH Q4H PRN PRN Reason: Pain (severe 7-10) Last Admin: 11/23/16 06:07 Dose: 1 mg Ceftriaxone Sodium 2 gm/ (Sodium Chloride) 100 mls @ 200 mls/hr IV Q24H [facility] Last Admin: 11/22/16 21:26 Dose: 200 mls/hr Promethazine HCl 12.5 mg/ (Sodium Chloride) 50.5 mls @ 100 mls/hr IV Q6H PRN PRN Reason: Nausea Sodium Chloride (Normal Saline) 1,000 mls @ 999 mls/hr IV ASDIRECTED [facility] Stop: 11/24/16 10:56 Last Admin: 11/23/16 11:12 Dose: 999 mls/hr Sodium Chloride (Normal Saline) 1,000 mls @ 250 mls/hr IV ASDIRECTED [facility] Last Admin: 11/23/16 12:15 Dose: 250 mls/hr Ibuprofen (Motrin) 600 mg PO Q6H PRN PRN Reason: Pain/Fever Last Admin: 11/23/16 08:49 Dose: 600 mg Ipratropium [place] (Atrovent) 0.5 mg NEB QIDRT PRN PRN Reason: Shortness of Breath Lorazepam (Ativan) 1 mg IVPUSH Q6H PRN PRN Reason: Anxiety Last Admin: 11/22/16 01:35 Dose: 1 mg Methylprednisolone Sodium Succinate (Solu-Medrol) 40 mg IVPUSH Q8H [facility] Last Admin: 11/23/16 05:24 Dose: 40 mg Miscellaneous Information (Remove Patch) 1 ea TRDERM Q72H PRN PRN Reason: PATCH REMOVAL Miscellaneous Information (Remove Patch) 1 ea TRDERM DAILY [facility] Last Admin: 11/23/16 08:34 Dose: 1 ea Nicotine (Habitrol) 21 mg TRDERM DAILY [facility] Last Admin: 11/23/16 08:35 Dose: 21 mg Ondansetron HCl (Zofran) 4 mg IVPUSH Q8H PRN PRN Reason: Nausea/Vomiting Last Admin: 11/20/16 18:18 Dose: 4 mg Pantoprazole Sodium (Protonix) 40 mg PO DAILY@0700 [facility] Last Admin: 11/23/16 11:16 Dose: Not Given Saccharomyces Boulardii (Florastor) 250 mg PO BID [facility] Last Admin: 11/23/16 08:49 Dose: 250 mg Scopolamine (Transderm-Scop) 1.5 mg TRDERM Q72H PRN PRN Reason: Nausea/Vomiting Last Admin: 11/20/16 20:38 Dose: 1.5 mg Temazepam (Restoril) 15 mg PO BEDTIME PRN PRN Reason: Sleep Discontinued Medications Acetaminophen (Tylenol) 975 mg PO NOW ONE Stop: 11/19/16 10:47 Last Admin: 11/19/16 10:49 Dose: 975 mg Ampicillin Sodium (Ampicillin) Confirm Administered Dose 1 gm .ROUTE .STK-MED ONE Stop: 11/20/16 21:53 Last Admin: 11/20/16 22:18 Dose: Not Given Ampicillin Sodium (Ampicillin) Confirm Administered Dose 1 gm .ROUTE .STK-MED ONE Stop: 11/20/16 21:54 Last Admin: 11/20/16 22:19 Dose: Not Given Ampicillin Sodium (Ampicillin) Confirm Administered Dose 2,000 mg .ROUTE .STK- MED ONE Stop: 11/21/16 11:04 Last Admin: 11/21/16 11:33 Dose: Not Given Diatrizoate Meglum/Diatrizoate Sod (Gastrografin 37%) 90 ml PO ONETIME ONE Stop: 11/19/16 13:20 Last Admin: 11/19/16 13:30 Dose: 90 ml Hydromorphone HCl (Dilaudid) 1 mg IVPUSH Q8H PRN PRN Reason: Pain (severe 7-10) Last Admin: 11/20/16 16:54 Dose: 1 mg Dextrose/Sodium Chloride (Dextrose 5%-Normal Saline) 1,000 mls @ [facility] Admin: 11/19/16 10:08 Dose: 999 mls/hr Sodium Chloride (Normal Saline) 1,000 mls @ [facility] Last Admin: 11/22/16 23:59 Dose: 75 mls/hr Levofloxacin/Dextrose 750 mg/ (Premix) 150 mls @ 100 mls/hr IV ONETIME ONE Stop: 11/19/16 15:44 Last Admin: 11/19/16 14:32 Dose: 100 mls/hr Sodium Chloride (Sodium Chloride 0.45%) 1,000 mls @ 999 mls/hr IV ASDIRECTED [facility] Stop: 11/20/16 19:01 Last Admin: 11/19/16 20:00 Dose: 999 mls/hr Metronidazole 500 mg/ Premix 100 mls @ 100 mls/hr IV Q8H [facility] Last Admin: 11/20/16 17:42 Dose: 100 mls/hr Magnesium Sulfate 2 gm/ Premix 50 mls @ 25 mls/hr IV ONETIME ONE Stop: 11/19/16 19:56 Last Admin: 11/19/16 19:36 Dose: 25 mls/hr Levofloxacin/Dextrose 750 mg/ (Premix) 150 mls @ 100 mls/hr IV Q24H [facility] Last Admin: 11/20/16 14:48 Dose: 100 mls/hr Vancomycin HCl 1 gm/Vancomycin HCl 250 mg/ Sodium Chloride 250 mls @ 166 mls/ hr IV Q12H [facility] Last Admin: 11/20/16 12:58 Dose: 166 mls/hr Piperacillin Sod/Tazobactam (Sod 4.5 gm/ Sodium Chloride) 100 mls @ 200 mls/hr IV ONETIME ONE Stop: 11/20/16 15:29 Last Admin: 11/20/16 16:35 Dose: 200 mls/hr Piperacillin Sod/Tazobactam (Sod 4.5 gm/ Sodium Chloride) 100 mls @ 25 mls/hr IV Q8H [facility] Acyclovir 1,000 mg/ Sodium (Chloride) 120 mls @ 100 mls/hr IV Q8H [facility] Last Admin: 11/23/16 02:40 Dose: 100 mls/hr Ampicillin Sodium 2 gm/ Sodium (Chloride) 100 mls @ 200 mls/hr IV Q4H [facility] Last Admin: 11/20/16 21:42 Dose: Not Given Vancomycin HCl 1 gm/Vancomycin HCl 250 mg/ Sodium Chloride 250 mls @ 170 mls/ hr IV Q12H [facility] Last Admin: 11/22/16 00:46 Dose: 170 mls/hr Promethazine HCl 12.5 mg/ (Sodium Chloride) 50.5 mls @ 100 mls/hr IV Q6H [facility] Last Admin: 11/22/16 08:28 Dose: 100 mls/hr Ampicillin Sodium 1 gm/ Sodium (Chloride) 100 mls @ 200 mls/hr IV Q30M [facility] Stop: 11/20/16 22:59 Ampicillin Sodium 2 gm/ Sodium (Chloride) 100 mls @ 200 mls/hr IV ONETIME ONE Stop: 11/21/16 02:29 Last Admin: 11/21/16 02:27 Dose: 200 mls/hr Ampicillin Sodium 2 gm/ Sodium (Chloride) 100 mls @ 200 mls/hr IV ONETIME ONE Stop: 11/21/16 06:29 Last Admin: 11/21/16 06:26 Dose: 200 mls/hr Ampicillin Sodium 2 gm/ Sodium (Chloride) 100 mls @ 200 mls/hr IV Q4H [facility] Last Admin: 11/21/16 11:28 Dose: 200 mls/hr Ampicillin Sodium 2 gm/ Sodium (Chloride) 100 mls @ 200 mls/hr IM ONETIME ONE Stop: 11/20/16 22:44 Last Infusion: 11/20/16 22:20 Dose: Infused Sodium Chloride (Normal Saline) Confirm Administered Dose 100 mls @ as directed .ROUTE .STK-MED ONE Stop: 11/20/16 22:01 Last Admin: 11/20/16 22:19 Dose: Not Given Sodium Chloride (Normal Saline) Confirm Administered Dose 100 mls @ as directed .ROUTE .STK-MED ONE Stop: 11/21/16 11:08 Last Admin: 11/21/16 11:33 Dose: Not Given Sodium Chloride (Normal Saline) Confirm Administered Dose 100 mls @ as directed .ROUTE .STK-MED ONE Stop: 11/21/16 11:09 Last Admin: 11/21/16 11:34 Dose: Not Given Ampicillin Sodium 2 gm/ Sodium (Chloride) 100 mls @ 200 mls/hr IV Q4H [facility] Last Admin: 11/23/16 09:40 Dose: 200 mls/hr Magnesium Sulfate 2 gm/ Premix 50 mls @ 25 mls/hr IV ONETIME ONE Stop: 11/22/16 11:36 Last Admin: 11/22/16 20:22 Dose: Not Given Magnesium Sulfate 2 gm/ Premix 50 mls @ 25 mls/hr IV ONETIME ONE Stop: 11/22/16 17:29 Last Admin: 11/22/16 15:08 Dose: 25 mls/hr Vancomycin HCl 1 gm/Vancomycin HCl 250 mg/ Sodium Chloride 250 mls @ 165 mls/ hr IV Q8H [facility] Last Admin: 11/22/16 12:51 Dose: 165 mls/hr Sodium Chloride (Normal Saline) Confirm Administered Dose 1,000 mls @ as directed .ROUTE .STK-MED ONE Stop: 11/23/16 10:00 Last Admin: 11/23/16 10:22 Dose: Not Given Ibuprofen (Motrin) 600 mg PO ONETIME ONE Stop: 11/19/16 16:10 Last Admin: 11/19/16 16:12 Dose: 600 mg Iopamidol (Isovue-300 (61%)) 125 ml IVPUSH ONETIME ONE Stop: 11/19/16 13:20 Last Admin: 11/19/16 13:30 Dose: 125 ml Ketorolac Tromethamine (Toradol) 60 mg IM ONETIME ONE Stop: 11/19/16 20:01 Last Admin: 11/19/16 23:14 Dose: 60 mg Ketorolac Tromethamine (Toradol) 30 mg IVPUSH Q6H [facility] Stop: 11/21/16 08:01 Last Admin: 11/20/16 05:00 Dose: Not Given Ketorolac Tromethamine (Toradol) 30 mg IVPUSH Q6H [facility] Stop: 11/21/16 12:01 Last Admin: 11/20/16 11:17 Dose: 30 mg Methylprednisolone Sodium Succinate (Solu-Medrol) 40 mg IVPUSH Q6H [facility] Last Admin: 11/22/16 20:22 Dose: Not Given Miscellaneous Information (Remove Patch) 1 ea TRDERM ONETIME ONE Stop: 11/21/16 08:01 Last Admin: 11/21/16 08:19 Dose: Not Given Nicotine (Habitrol) 21 mg TRDERM ONETIME ONE Stop: 11/20/16 08:01 Last Admin: 11/20/16 07:43 Dose: 21 mg Pantoprazole Sodium (Protonix Iv) 40 mg IVPUSH Q12H [facility] Last Admin: 11/23/16 05:23 Dose: 40 mg Saccharomyces Boulardii (Florastor) 500 mg PO BID [facility] Last Admin: 11/22/16 21:26 Dose: 500 mg Sodium Chloride (Saline Flush) 10 ml FLUSH ONETIME ONE Stop: 11/19/16 13:20 Last Admin: 11/19/16 13:30 Dose: 10 ml Vancomycin HCl (Pharmacy To Dose - Vancomycin) 0 dose .XX ASDIRECTED PRN PRN Reason: RX TO DOSE VANCOMYCIN - Exam Quality Assessment: DVT Prophylaxis General: Alert, Oriented, Cooperative, No Acute Distress HEENT: Pupils Equal, Pupils Reactive, EOMI Neck: Supple, Trachea Midline, No JVD Lungs: Normal Respiratory Effort Cardiovascular: Regular Rate, Regular Rhythm GI/Abdominal Exam: Normal Bowel Sounds, Soft, Non-Tender, No Organomegaly, No Distention (Male) Exam: Deferred Back Exam: Normal Inspection Extremities: Normal Inspection, No Pedal Edema, Normal Capillary Refill Skin: Warm, Dry, Intact Neurological: No New Focal Deficit, Normal Gait, Normal Speech Psy/Mental Status: Alert, Normal Affect, Normal Mood - Problem List & Annotations (1) Crohns disease of small intestine SNOMED Code(s): 02050152 Code(s): K50.00 - CROHN'S DISEASE OF SMALL INTESTINE WITHOUT COMPLICATIONS Status: Acute Qualifiers: Digestive disease complication type: without complication Qualified Code(s) : K50.00 - Crohn's disease of small intestine without complications (2) Fever of unknown origin SNOMED Code(s): 6021378 Code(s): R50.9 - FEVER, UNSPECIFIED Status: Acute Priority: High (3) Gastroenteritis SNOMED Code(s): 75323173 Code(s): K52.9 - NONINFECTIVE GASTROENTERITIS AND COLITIS, UNSPECIFIED Status: Acute Priority: High (4) Tobacco dependence SNOMED Code(s): 89310557 Code(s): F17.200 - NICOTINE DEPENDENCE, UNSPECIFIED, UNCOMPLICATED Status: Acute (5) Headache SNOMED Code(s): 20023124 Code(s): R51 - HEADACHE Status: Acute Priority: High Qualifiers: Headache type: unspecified - Problem List Review Problem List Initiated/Reviewed/Updated: Yes - My Orders Last 24 Hours: My Active Orders 11/22/16 14:00 methylPREDNISolone Sod Succ [Solu-MEDROL] 40 mg IVPUSH Q8H 11/22/16 21:50 Temazepam [Restoril] 15 mg PO BEDTIME PRN 11/23/16 09:00 Saccharomyces Boulardii [Florastor] 250 mg PO BID 11/23/16 09:55 Sodium Chloride 0.9% [Normal Saline] 1,000 ml IV ASDIRECTED 11/23/16 10:00 Pantoprazole [ProTONIX] 40 mg PO DAILY@0700 Sodium Chloride 0.9% [Normal Saline] 1,000 ml IV ASDIRECTED 11/23/16 10:03 Orthostatic Vital Signs [RC] ASDIRECTED 11/23/16 12:34 Acetaminophen/Butalbital/Caff [Fioricet 325-50-40 MG] 1 tab PO Q4H PRN - Plan Plan:: Impression: Headache, persistent; empiric coverage for bacterial infection and atypical eg [place]; still waiting on results Abdominal pain, infectious cf Crohn's Abnormal CT of abdomen/pelvis Chronic diarrhea, character changed to watery; no blood or mucous, now more formed. Febrile illness--->see number 1 Dehydration, resolved Plan: Probiotic added on day 3 IVF; ice chips-->advance to clear liquids Pain control IV ATB changed to Ampicillin, Vancomycin, Acyclivir, Rocephin Solumedrol DVT/GI prophylaxis SW/CM consult LOS>96 hours for treatment
[2016-11-23] MEDS: Acetaminophen 325 MG Tab PO PRN (18:23)
[2016-11-23] MEDS: cefTRIAXone 2 GM in Sodium Chloride 0.9% 100 ML IV SCH (21:29)
[2016-11-24] MEDS: Ibuprofen 600 MG Tab PO PRN ×3 (00:21→15:46)
[2016-11-24] MEDS: HYDROmorphone 1 MG/ML Syringe IVPUSH PRN ×2 (00:23→10:16)
[2016-11-24] MEDS: Sodium Chloride 0.9% 1,000 ML IV SCH ×5 (01:50→21:08)
[2016-11-24] MEDS: methylPREDNISolone Sodium Succinate 40 MG/1 ML SDV IVPUSH SCH ×2 (05:56→13:22)
[2016-11-24] MEDS: Pantoprazole 40 MG Tab.CR PO SCH (05:59)
[2016-11-24] MEDS: Saccharomyces Boulardii (Probiotic) 250 MG Cap PO SCH ×2 (08:28→20:32)
[2016-11-24] MEDS: Acetaminophen/Butalbital/Caffeine 325-50-40 MG Tab PO PRN ×2 (08:29→13:21)
[2016-11-24] MEDS: Nicotine 21 MG/24 Hr Patch TRDERM SCH (10:16)
[2016-11-24] MEDS: Magnesium Oxide 400 MG Tab PO SCH (13:21)
[2016-11-24] MEDS ORDERED: Albuterol 0.021% 0.63 MG/3 ML Neb Soln NEB ONE (14:16)
[2016-11-24] MEDS ORDERED: Albuterol 0.083% 2.5 MG/3 ML Neb Soln NEB PRN ×2 (14:18→18:05)
--- NOTE | 2016-11-24 14:39 | PCM.PN ---
- General Info Date of Service: 11/24/16 Functional Status: Reports: Pain Controlled, Tolerating Diet, Ambulating, Urinating - Review of Systems General: Reports: Weakness, Fatigue HEENT: Reports: No Symptoms Pulmonary: Reports: No Symptoms Cardiovascular: Reports: Palpitations, Lightheadedness Gastrointestinal: Reports: No Symptoms Genitourinary: Reports: No Symptoms Musculoskeletal: Reports: No Symptoms Skin: Reports: No Symptoms Neurological: Reports: No Symptoms Psychiatric: Reports: No Symptoms - Patient Data Vitals - Most Recent: Last Vital Signs Temp 37.1 C 11/24/16 12:12 Pulse 42 L 11/24/16 12:12 Resp 14 11/24/16 12:12 BP 150/86 H 11/24/16 12:12 Pulse Ox 96 11/24/16 12:12 Orthostatic Blood Pressure [ 140/94 Standing] Orthostatic Blood Pressure [ 137/87 Sitting] Orthostatic Blood Pressure [ 138/85 Supine] Weight - Most Recent: 87.77 kg I&O - Last 24 Hours: Intake & Output 11/23/16 11/24/16 11/24/16 22:59 06:59 14:59 Intake Total 700 4846 120 Output Total 200 1125 Balance 500 3721 120 Lab Results Last 24 Hours: Laboratory Results - last 24 hr 11/23/16 11/24/16 11/24/16 Range/Units 14:51 06:30 06:30 WBC (4.23-9.07) K/mm3 RBC (4.63-6.08) M/mm3 Hgb (13.7-17.5) gm/L Hct (40.1-51.0) % MCV (79.0-92.2) fl MCH (25.7-32.2) pg MCHC (32.2-35.5) g/dl RDW Std Deviation (35.1-43.9) fL Plt Count (163-337) K/mm3 MPV (9.4-12.3) fl Neut % (Auto) (34.0-67.9) % Lymph % (Auto) (21.8-53.1) % [place] % (Auto) (5.3-12.2) % Eos % (Auto) (0.8-7.0) Baso % (Auto) (0.1-1.2) % Neut # (Auto) (1.78-5.38) K/mm3 Lymph # (Auto) (1.32-3.57) K/mm3 [place] # (Auto) (0.30-0.82) K/mm3 Eos # (Auto) (0.04-0.54) K/mm3 Baso # (Auto) (0.01-0.08) K/mm3 Manual Slide Review Sodium 139 (136-145) mEq/L Potassium 4.0 (3.5-5.1) mEq/L Chloride 107 (98-107) mEq/L Carbon Dioxide 24 (21-32) mEq/L Anion Gap 12.0 (5-15) BUN 15 (7-18) mg/dL Creatinine 0.9 (0.7-1.3) mg/dL Est Cr Clr Drug Dosing 107.67 mL/min Estimated GFR (MDRD) > 60 (>60) mL/min BUN/Creatinine Ratio 16.7 (14-18) Glucose 124 H (74-106) mg/dL POC Glucose 196 H (70-105) mg/dL Hemoglobin A1c 5.90 (4.50-6.20) % Lactic Acid (0.4-2.0) mmol/L Calcium 8.4 L (8.5-10.1) mg/dL Magnesium 1.7 L (1.8-2.4) mg/dl Total Bilirubin 0.3 (0.2-1.0) mg/dL AST 48 H (15-37) U/L ALT 141 H (16-63) U/L Alkaline Phosphatase 57 (46-116) U/L C-Reactive Protein 0.3 (<1.0) mg/dL Total Protein 5.7 L (6.4-8.2) g/dl Albumin 2.5 L (3.4-5.0) g/dl Globulin 3.2 gm/dL Albumin/Globulin Ratio 0.8 L (1-2) Triglycerides 106 (<150) mg/dL Cholesterol 131 (<200) mg/dL LDL Cholesterol Direct 88 (<100) mg/dL HDL Cholesterol 30.0 L (40-59) mg/dL 11/24/16 11/24/16 Range/Units 06:30 06:30 WBC 11.85 H (4.23-9.07) K/mm3 RBC 4.39 L (4.63-6.08) M/mm3 Hgb 12.8 L (13.7-17.5) gm/L Hct 37.0 L (40.1-51.0) % MCV 84.3 (79.0-92.2) fl MCH 29.2 (25.7-32.2) pg MCHC 34.6 (32.2-35.5) g/dl RDW Std Deviation 40.7 (35.1-43.9) fL Plt Count 277 (163-337) K/mm3 MPV 11.0 (9.4-12.3) fl Neut % (Auto) 78.7 H (34.0-67.9) % Lymph % (Auto) 9.9 L (21.8-53.1) % [place] % (Auto) 11.1 (5.3-12.2) % Eos % (Auto) 0.1 L (0.8-7.0) Baso % (Auto) 0.2 (0.1-1.2) % Neut # (Auto) 9.33 H (1.78-5.38) K/mm3 Lymph # (Auto) 1.17 L (1.32-3.57) K/mm3 [place] # (Auto) 1.32 H (0.30-0.82) K/mm3 Eos # (Auto) 0.01 L (0.04-0.54) K/mm3 Baso # (Auto) 0.02 (0.01-0.08) K/mm3 Manual Slide Review Abnormal smear Sodium (136-145) mEq/L Potassium (3.5-5.1) mEq/L Chloride (98-107) mEq/L Carbon Dioxide (21-32) mEq/L Anion Gap (5-15) BUN (7-18) mg/dL Creatinine (0.7-1.3) mg/dL Est Cr Clr Drug Dosing mL/min Estimated GFR (MDRD) (>60) mL/min BUN/Creatinine Ratio (14-18) Glucose (74-106) mg/dL POC Glucose (70-105) mg/dL Hemoglobin A1c (4.50-6.20) % Lactic Acid 1.5 (0.4-2.0) mmol/L Calcium (8.5-10.1) mg/dL Magnesium (1.8-2.4) mg/dl Total Bilirubin (0.2-1.0) mg/dL AST (15-37) U/L ALT (16-63) U/L Alkaline Phosphatase (46-116) U/L C-Reactive Protein (<1.0) mg/dL Total Protein (6.4-8.2) g/dl Albumin (3.4-5.0) g/dl Globulin gm/dL Albumin/Globulin Ratio (1-2) Triglycerides (<150) mg/dL Cholesterol (<200) mg/dL LDL Cholesterol Direct (<100) mg/dL HDL Cholesterol (40-59) mg/dL Shiv Results Last 24 Hours: Microbiology 11/20/16 03:15 Stool Culture - Final Stool / Feces NORMAL ENTERIC LORENZO. NO SALMONELLA, SHIGELLA, CAMPYLOBACTER, E.COLI O157 OR YERSINIA ISOLATED. - Final NEGATIVE FOR SHIGA TOXIN 1 - Final NEGATIVE FOR SHIGA TOXIN 2 Med Orders - Current: Current Medications Acetaminophen (Tylenol) 650 mg PO Q4H PRN PRN Reason: Pain/Fever Last Admin: 11/23/16 18:23 Dose: 650 mg Acetaminophen/Butalbital/Caffeine (Fioricet 325-50-40 Mg) 1 tab PO Q4H PRN PRN Reason: Headache Last Admin: 11/24/16 13:21 Dose: 1 tab Albuterol (Proventil Neb Soln) 2.5 mg NEB QIDRT PRN PRN Reason: Shortness of Breath Ceftriaxone Sodium 2 gm/ (Sodium Chloride) 100 mls @ 200 mls/hr IV Q24H [facility] Stop: 11/24/16 23:00 Last Admin: 11/23/16 21:29 Dose: 200 mls/hr Promethazine HCl 12.5 mg/ (Sodium Chloride) 50.5 mls @ 100 mls/hr IV Q6H PRN PRN Reason: Nausea Sodium Chloride (Normal Saline) 1,000 mls @ 250 mls/hr IV ASDIRECTED [facility] Last Admin: 11/24/16 10:24 Dose: 250 mls/hr Ibuprofen (Motrin) 600 mg PO Q6H PRN PRN Reason: Pain/Fever Last Admin: 11/24/16 08:29 Dose: 600 mg Ipratropium [place] (Atrovent) 0.5 mg NEB QIDRT PRN PRN Reason: Shortness of Breath Lorazepam (Ativan) 1 mg IVPUSH Q6H PRN PRN Reason: Anxiety Last Admin: 11/22/16 01:35 Dose: 1 mg Magnesium Oxide (Magnesium Oxide) 400 mg PO DAILY [facility] Last Admin: 11/24/16 13:21 Dose: 400 mg Methylprednisolone Sodium Succinate (Solu-Medrol) 40 mg IVPUSH DAILY [facility] Miscellaneous Information (Remove Patch) 1 ea TRDERM Q72H PRN PRN Reason: PATCH REMOVAL Miscellaneous Information (Remove Patch) 1 ea TRDERM DAILY [facility] Last Admin: 11/24/16 10:16 Dose: 1 ea Nicotine (Habitrol) 21 mg TRDERM DAILY [facility] Last Admin: 11/24/16 10:16 Dose: 21 mg Ondansetron HCl (Zofran) 4 mg IVPUSH Q8H PRN PRN Reason: Nausea/Vomiting Last Admin: 11/20/16 18:18 Dose: 4 mg Pantoprazole Sodium (Protonix) 40 mg PO DAILY@0700 [facility] Last Admin: 11/24/16 05:59 Dose: 40 mg Saccharomyces Boulardii (Florastor) 250 mg PO BID [facility] Last Admin: 11/24/16 08:28 Dose: 250 mg Scopolamine (Transderm-Scop) 1.5 mg TRDERM Q72H PRN PRN Reason: Nausea/Vomiting Last Admin: 11/20/16 20:38 Dose: 1.5 mg Temazepam (Restoril) 15 mg PO BEDTIME PRN PRN Reason: Sleep Discontinued Medications Acetaminophen (Tylenol) 975 mg PO NOW ONE Stop: 11/19/16 10:47 Last Admin: 11/19/16 10:49 Dose: 975 mg Albuterol (Proventil Neb Soln) 0.63 mg NEB ONETIME ONE Stop: 11/24/16 14:17 Ampicillin Sodium (Ampicillin) Confirm Administered Dose 1 gm .ROUTE .STK-MED ONE Stop: 11/20/16 21:53 Last Admin: 11/20/16 22:18 Dose: Not Given Ampicillin Sodium (Ampicillin) Confirm Administered Dose 1 gm .ROUTE .STK-MED ONE Stop: 11/20/16 21:54 Last Admin: 11/20/16 22:19 Dose: Not Given Ampicillin Sodium (Ampicillin) Confirm Administered Dose 2,000 mg .ROUTE .STK- MED ONE Stop: 11/21/16 11:04 Last Admin: 11/21/16 11:33 Dose: Not Given Diatrizoate Meglum/Diatrizoate Sod (Gastrografin 37%) 90 ml PO ONETIME ONE Stop: 11/19/16 13:20 Last Admin: 11/19/16 13:30 Dose: 90 ml Hydromorphone HCl (Dilaudid) 1 mg IVPUSH Q8H PRN PRN Reason: Pain (severe 7-10) Last Admin: 11/20/16 16:54 Dose: 1 mg Hydromorphone HCl (Dilaudid) 1 mg IVPUSH Q4H PRN PRN Reason: Pain (severe 7-10) Last Admin: 11/24/16 10:16 Dose: 1 mg Dextrose/Sodium Chloride (Dextrose 5%-Normal Saline) 1,000 mls @ 999 [facility] Admin: 11/19/16 10:08 Dose: 999 mls/hr Sodium Chloride (Normal Saline) 1,000 mls @ 75 [facility]ls[facility] Last Admin: 11/22/16 23:59 Dose: 75 mls/hr Levofloxacin/Dextrose 750 mg/ (Premix) 150 mls @ 100 mls/hr IV ONETIME ONE Stop: 11/19/16 15:44 Last Admin: 11/19/16 14:32 Dose: 100 mls/hr Sodium Chloride (Sodium Chloride 0.45%) 1,000 mls @ 999 [facility]ls[facility]: 11/20/16 19:01 Last Admin: 11/19/16 20:00 Dose: 999 mls/hr Metronidazole 500 mg/ Premix 100 mls @ 100 mls/hr IV Q8H [facility] Last Admin: 11/20/16 17:42 Dose: 100 mls/hr Magnesium Sulfate 2 gm/ Premix 50 mls @ 25 mls/hr IV ONETIME ONE Stop: 11/19/16 19:56 Last Admin: 11/19/16 19:36 Dose: 25 mls/hr Levofloxacin/Dextrose 750 mg/ (Premix) 150 mls @ 100 mls/hr IV Q24H [facility] Last Admin: 11/20/16 14:48 Dose: 100 mls/hr Vancomycin HCl 1 gm/Vancomycin HCl 250 mg/ Sodium Chloride 250 mls @ 166 mls/ hr IV Q12H [facility] Last Admin: 11/20/16 12:58 Dose: 166 mls/hr Piperacillin Sod/Tazobactam (Sod 4.5 gm/ Sodium Chloride) 100 mls @ 200 mls/hr IV ONETIME ONE Stop: 11/20/16 15:29 Last Admin: 11/20/16 16:35 Dose: 200 mls/hr Piperacillin Sod/Tazobactam (Sod 4.5 gm/ Sodium Chloride) 100 mls @ 25 mls/hr IV Q8H [facility] Acyclovir 1,000 mg/ Sodium (Chloride) 120 mls @ 100 mls/hr IV Q8H [facility] Last Admin: 11/23/16 02:40 Dose: 100 mls/hr Ampicillin Sodium 2 gm/ Sodium (Chloride) 100 mls @ 200 mls/hr IV Q4H [facility] Last Admin: 11/20/16 21:42 Dose: Not Given Vancomycin HCl 1 gm/Vancomycin HCl 250 mg/ Sodium Chloride 250 mls @ 170 mls/ hr IV Q12H [facility] Last Admin: 11/22/16 00:46 Dose: 170 mls/hr Promethazine HCl 12.5 mg/ (Sodium Chloride) 50.5 mls @ 100 mls/hr IV Q6H [facility] Last Admin: 11/22/16 08:28 Dose: 100 mls/hr Ampicillin Sodium 1 gm/ Sodium (Chloride) 100 mls @ 200 mls/hr IV Q30M [facility] Stop: 11/20/16 22:59 Ampicillin Sodium 2 gm/ Sodium (Chloride) 100 mls @ 200 mls/hr IV ONETIME ONE Stop: 11/21/16 02:29 Last Admin: 11/21/16 02:27 Dose: 200 mls/hr Ampicillin Sodium 2 gm/ Sodium (Chloride) 100 mls @ 200 mls/hr IV ONETIME ONE Stop: 11/21/16 06:29 Last Admin: 11/21/16 06:26 Dose: 200 mls/hr Ampicillin Sodium 2 gm/ Sodium (Chloride) 100 mls @ 200 mls/hr IV Q4H [facility] Last Admin: 11/21/16 11:28 Dose: 200 mls/hr Ampicillin Sodium 2 gm/ Sodium (Chloride) 100 mls @ 200 mls/hr IM ONETIME ONE Stop: 11/20/16 22:44 Last Infusion: 11/20/16 22:20 Dose: Infused Sodium Chloride (Normal Saline) Confirm Administered Dose 100 mls @ as directed .ROUTE .ST-MED ONE Stop: 11/20/16 22:01 Last Admin: 11/20/16 22:19 Dose: Not Given Sodium Chloride (Normal Saline) Confirm Administered Dose 100 mls @ as directed .ROUTE .[facility] ONE Stop: 11/21/16 11:08 Last Admin: 11/21/16 11:33 Dose: Not Given Sodium Chloride (Normal Saline) Confirm Administered Dose 100 mls @ as directed .ROUTE .[facility] ONE Stop: 11/21/16 11:09 Last Admin: 11/21/16 11:34 Dose: Not Given Ampicillin Sodium 2 gm/ Sodium (Chloride) 100 mls @ 200 mls/hr IV Q4H [facility] Last Admin: 11/23/16 09:40 Dose: 200 mls/hr Magnesium Sulfate 2 gm/ Premix 50 mls @ 25 mls/hr IV ONETIME ONE Stop: 11/22/16 11:36 Last Admin: 11/22/16 20:22 Dose: Not Given Magnesium Sulfate 2 gm/ Premix 50 mls @ 25 mls/hr IV ONETIME ONE Stop: 11/22/16 17:29 Last Admin: 11/22/16 15:08 Dose: 25 mls/hr Vancomycin HCl 1 gm/Vancomycin HCl 250 mg/ Sodium Chloride 250 mls @ 165 mls/ hr IV Q8H [facility] Last Admin: 11/22/16 12:51 Dose: 165 mls/hr Sodium Chloride (Normal Saline) 1,000 mls @ 999 mls/hr IV ASDIRECTED [facility] Stop: 11/24/16 10:56 Last Admin: 11/23/16 11:12 Dose: 999 mls/hr Sodium Chloride (Normal Saline) Confirm Administered Dose 1,000 mls @ as directed .ROUTE .[facility] ONE Stop: 11/23/16 10:00 Last Admin: 11/23/16 10:22 Dose: Not Given Ibuprofen (Motrin) 600 mg PO ONETIME ONE Stop: 11/19/16 16:10 Last Admin: 11/19/16 16:12 Dose: 600 mg Iopamidol (Isovue-300 (61%)) 125 ml IVPUSH ONETIME ONE Stop: 11/19/16 13:20 Last Admin: 11/19/16 13:30 Dose: 125 ml Ketorolac Tromethamine (Toradol) 60 mg IM ONETIME ONE Stop: 11/19/16 20:01 Last Admin: 11/19/16 23:14 Dose: 60 mg Ketorolac Tromethamine (Toradol) 30 mg IVPUSH Q6H [facility] Stop: 11/21/16 08:01 Last Admin: 11/20/16 05:00 Dose: Not Given Ketorolac Tromethamine (Toradol) 30 mg IVPUSH Q6H [facility] Stop: 11/21/16 12:01 Last Admin: 11/20/16 11:17 Dose: 30 mg Methylprednisolone Sodium Succinate (Solu-Medrol) 40 mg IVPUSH Q6H [facility] Last Admin: 11/22/16 20:22 Dose: Not Given Methylprednisolone Sodium Succinate (Solu-Medrol) 40 mg IVPUSH Q8H [facility] Last Admin: 11/24/16 13:22 Dose: 40 mg Miscellaneous Information (Remove Patch) 1 ea TRDERM ONETIME ONE Stop: 11/21/16 08:01 Last Admin: 11/21/16 08:19 Dose: Not Given Nicotine (Habitrol) 21 mg TRDERM ONETIME ONE Stop: 11/20/16 08:01 Last Admin: 11/20/16 07:43 Dose: 21 mg Pantoprazole Sodium (Protonix Iv) 40 mg IVPUSH Q12H [facility] Last Admin: 11/23/16 05:23 Dose: 40 mg Saccharomyces Boulardii (Florastor) 500 mg PO BID [facility] Last Admin: 11/22/16 21:26 Dose: 500 mg Sodium Chloride (Saline Flush) 10 ml FLUSH ONETIME ONE Stop: 11/19/16 13:20 Last Admin: 11/19/16 13:30 Dose: 10 ml Vancomycin HCl (Pharmacy To Dose - Vancomycin) 0 dose .XX ASDIRECTED PRN PRN Reason: RX TO DOSE VANCOMYCIN - Exam Quality Assessment: DVT Prophylaxis General: Alert, Oriented, Cooperative HEENT: Pupils Reactive, EOMI Neck: Supple, Trachea Midline, No JVD Lungs: Clear to Auscultation Cardiovascular: Regular Rate, Bradycardia GI/Abdominal Exam: Normal Bowel Sounds, Soft, Non-Tender, No Organomegaly (Male) Exam: Deferred Back Exam: Normal Inspection Extremities: Normal Inspection, No Pedal Edema, Normal Capillary Refill Skin: Warm Wound/Incisions: Healing Well, Dressing Dry and Intact Neurological: No New Focal Deficit Psy/Mental Status: Alert, Normal Affect, Normal Mood - Problem List & Annotations (1) Crohns disease of small intestine SNOMED Code(s): 03901352 Code(s): K50.00 - CROHN'S DISEASE OF SMALL INTESTINE WITHOUT COMPLICATIONS Status: Acute Current Visit: Yes Qualifiers: Digestive disease complication type: without complication Qualified Code(s) : K50.00 - Crohn's disease of small intestine without complications (2) Fever of unknown origin SNOMED Code(s): 8718585 Code(s): R50.9 - FEVER, UNSPECIFIED Status: Acute Current Visit: Yes (3) Gastroenteritis SNOMED Code(s): 41002457 Code(s): K52.9 - NONINFECTIVE GASTROENTERITIS AND COLITIS, UNSPECIFIED Status: Acute Current Visit: Yes (4) Tobacco dependence SNOMED Code(s): 87395785 Code(s): F17.200 - NICOTINE DEPENDENCE, UNSPECIFIED, UNCOMPLICATED Status: Acute Current Visit: Yes (5) Headache SNOMED Code(s): 74864916 Code(s): R51 - HEADACHE Status: Acute Current Visit: Yes Qualifiers: Headache type: unspecified - Problem List Review Problem List Initiated/Reviewed/Updated: Yes - My Orders Last 24 Hours: My Active Orders 11/24/16 14:13 Echo Comp wo Cont [US] Routine 11/24/16 14:16 RT Aerosol Therapy [RC] ASDIRECTED 11/24/16 14:18 RT Aerosol Therapy [RC] ASDIRECTED Albuterol [Proventil Neb Soln] 2.5 mg NEB QIDRT PRN 11/24/16 15:00 TROPONIN I [CHEM] Routine 11/24/16 20:00 TROPONIN I [CHEM] Routine 11/25/16 05:00 CBC WITH AUTO DIFF [HEME] DAILY CMP [COMPREHENSIVE METABOLIC PN,CMP] [CHEM] DAILY CRP [C-REACTIVE PROTEIN] [CHEM] DAILY LACTIC ACID [CHEM] DAILY MAGNESIUM [CHEM] DAILY 11/25/16 09:00 methylPREDNISolone Sod Succ [Solu-MEDROL] 40 mg IVPUSH DAILY 11/26/16 05:00 CBC WITH AUTO DIFF [HEME] DAILY CMP [COMPREHENSIVE METABOLIC PN,CMP] [CHEM] DAILY CRP [C-REACTIVE PROTEIN] [CHEM] DAILY MAGNESIUM [CHEM] DAILY 11/27/16 05:00 CBC WITH AUTO DIFF [HEME] DAILY CMP [COMPREHENSIVE METABOLIC PN,CMP] [CHEM] DAILY CRP [C-REACTIVE PROTEIN] [CHEM] DAILY MAGNESIUM [CHEM] DAILY - Plan Plan:: Impression: Sinus joanie cardia, evaluate hypoxia and pulmonary process Orthostatics were negative Headache, persistent; empiric coverage for bacterial infection and atypical eg West Nile Abdominal pain, infectious cf Crohn's Abnormal CT of abdomen/pelvis Chronic diarrhea, character changed to watery Febrile illness--->see number 1 Dehydration, resolved Plan: Regular diet, increase activity Pain control IV ATB changed to Ampicillin, Vancomycin, Acyclivir, Rocephin Solumedrol DVT/GI prophylaxis SW/CM consult LOS>96 hours for treatment
--- NOTE | 2016-11-24 15:52 | CR ---
Chest: 2 views of the chest were obtained. Comparison: Previous chest x-ray of 11/20/16. Worsening chest is seen from prior study with diffuse increased density now noted within both mid and upper lungs. Mild right basilar atelectasis is noted. Possible small right sided pleural effusion is seen. Heart is enlarged. Upper mediastinum is normal. Bony structures are grossly intact. Impression: 1. Increasing density within both mid and upper lungs. Heart is also slightly more prominent than on prior exam. Findings raise the possibility of acute cardiac event with pulmonary edema. Please correlate. 2. Mild right basilar atelectasis is noted. 3. Possible small right sided pleural effusion. Diagnostic code #5
[2016-11-24] MEDS ORDERED: Iopamidol 755 Mg/ML 100 ML Bottle IVPUSH ONE (16:38)
[2016-11-24] MEDS ORDERED: Sodium Chloride 0.9% 10 ML Syringe FLUSH ONE (16:38)
[2016-11-24] MEDS ORDERED: Sodium Chloride 0.9% 100 ML IV SCH (16:45)
[2016-11-24] MEDS ORDERED: Atropine 0.4 MG/ML SDV IVPUSH ONE (17:16)
--- NOTE | 2016-11-24 17:21 | CT ---
Addendum: Previous reports states intravenous contrast was not utilized. This is incorrect and intravenous contrast was utilized. --- Addendum1 above dictated on [12/01/2016 16:09] by [Sana Villasenor Hilton J.] --- --- Addendum1 above signed on [12/01/2016 16:09] by [Sana Villasenor Hilton J.] --- --- Original report below dictated on [11/24/2016 17:18] by [Sana Villasenor Hilton J.] --- --- Original report below signed on [11/24/2016 17:18] by [Sana Villasenor Hilton J.] --- CT chest Technique: Multiple axial sections through the chest were obtained. Intravenous contrast was not utilized. Findings: Equivocal inflammatory change is partially visualized around the head of the pancreas. This is not included completely on this exam but findings could represent pancreatitis. Heart does not appear enlarged on CT exam. Small bilateral pleural effusions are noted. Mediastinum and hilar regions show no adenopathy or mass. Several normal-appearing lymph nodes are seen. No axillary adenopathy is identified. Areas of consolidation are noted within both upper lungs. Mild atelectasis is seen within both lung bases. Impression: 1. Areas of consolidation within both upper lungs. Differential includes pulmonary edema, pulmonary hemorrhage as well as pneumonia. 2. Mild bibasilar atelectasis. 3. Small bilateral pleural effusions. 4. Equivocal pancreatitis is partially visualized on this study. Please correlate with enzymes studies. Diagnostic code #5 --- Addendum1 signed ---
[2016-11-24] MEDS ORDERED: Atropine 0.1 MG/ML 10 ML Syringe IVPUSH ONE ×2 (17:31→21:18)
[2016-11-24] MEDS ORDERED: Albuterol/Ipratropium 3.0-0.5 MG/3 ML Neb Soln NEB PRN (18:05)
[2016-11-24] MEDS ORDERED: Ampicillin 2 GM in Sodium Chloride 0.9% 100 ML IV SCH ×2 (18:15→19:00)
[2016-11-24] MEDS: Acetaminophen 325 MG Tab PO PRN (19:28)
[2016-11-24] MEDS ORDERED: cefTRIAXone 2 GM in Sodium Chloride 0.9% 100 ML IV SCH (20:00)
[2016-11-24] MEDS ORDERED: Ketorolac 30 MG/ML SDV IVPUSH ONE (20:02)
[2016-11-24] MEDS ORDERED: Mesalamine 800 MG Tab.CR PO SCH (21:00)
[2016-11-24] MEDS ORDERED: Atropine 0.1 MG/ML 10 ML Syringe ONE (21:19)
[2016-11-24] MEDS: LORazepam 2 MG/ML MDV IVPUSH PRN (22:47)
[2016-11-24] MEDS: DOPamine/Dextrose 5%-Water 400 MG/250 ML BAG IV SCH (23:12)
[2016-11-25] MEDS: Ampicillin 2 GM in Sodium Chloride 0.9% 100 ML IV SCH ×2 (00:57→06:29)
[2016-11-25] MEDS: Ketorolac 30 MG/ML SDV IVPUSH SCH ×3 (01:00→13:46)
[2016-11-25] MEDS: Acetaminophen/Butalbital/Caffeine 325-50-40 MG Tab PO PRN ×2 (06:30→13:46)
[2016-11-25] MEDS: Pantoprazole 40 MG Tab.CR PO SCH (06:30)
[2016-11-25] MEDS ORDERED: Sodium Chloride 0.9% 1,000 ML IV SCH (06:45)
[2016-11-25] MEDS ORDERED: methylPREDNISolone Sodium Succinate 40 MG/1 ML SDV IVPUSH SCH (09:00)
[2016-11-25] MEDS: Magnesium Oxide 400 MG Tab PO SCH (09:16)
[2016-11-25] MEDS: Saccharomyces Boulardii (Probiotic) 250 MG Cap PO SCH (09:16)
[2016-11-25] MEDS: Nicotine 21 MG/24 Hr Patch TRDERM SCH (09:17)
[2016-11-25] MEDS: Ibuprofen 600 MG Tab PO PRN (09:26)
[2016-11-25] MEDS ORDERED: Piperacillin/Tazobactam 4.5 GM in Sodium Chloride 0.9% 100 ML IV ONE (10:00)
[2016-11-25] MEDS: Ondansetron 4 MG/2 ML SDV IVPUSH PRN (10:21)
--- NOTE | 2016-11-25 11:47 | PCM.PRNOTE ---
- Free Text/Narrative Note: 11/25/16 1:05 - In to visit with patient. Current complaint is headache with light sensitivity and weakness. Patient is also nauseated but denies need to vomit. Pt. is alert and answers questions appropriately. Denies any travel outside of [place]. Also denies any recent travel from area. 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 Denies IV drug usage. Denies any change in daily routine, new, or exotic foods. Denies sick contacts with friends , family, or co-workers. No history of migraines, only minor headaches relieved by OTC medications. States this episode began with a headache about 1 week prior to seeking care. Reports history of anxiety but stopped medications several years ago. States he was brought from [place] to ER here approximately 1 year ago for "what they though was a heart attack." Around that time multiple tests were obtained including a stress test, which patient reports were all negative. He usually sees [facility] for primary care. Will review their records today. Vital signs reviewed with HR in the 50's. Denies any CP or SOB. Awaiting lab results and will update patient and plan of care as results are returned.
[2016-11-25] MEDS ORDERED: Potassium Chloride 10% 20 MEQ/15 ML Soln 30 ML UD Cup PO ONE (11:53)
[2016-11-25] MEDS ORDERED: Magnesium Sulfate/Water 2 GM in Premix Bag 1 BAG IV ONE (11:54)
--- NOTE | 2016-11-25 11:55 | PCM.PN ---
- General Info Date of Service: 11/25/16 Admission Dx/Problem (Free Text): Admission Diagnosis/Problem Admission Diagnosis/Problem Fever of unknown origin Subjective Update: 11:05 - Had lenghty discussion with patient about possible causes of his symptoms. Denies any recent long distance travel and has never been outside of the [facility]. 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 He denies working on any plumbing, inside any structures, or on any older structures. Denies any recent demolition of structures such as luis antonio, etc. No recent changes in daily activities or eating habits. No exotic foods or drink. Denies IV drug usage. No family, friends, or co-worker sick contacts. He has never had symptoms like this in the past, however, approximately one year ago he was transported from [place] to our ER for chest pain. "They thought I was having a heart attack." Per the patient he was worked up for a cardiac causes including a stress test and all were negative. His primary care is provided through our [place] clinic and those notes will be reviewed further. When asked about how this episode began he reports a headache starting approximately 1 week prior to seeking treatment and subsequently being admitted here. He reports no history of migraine or other severe headaches. He states he has had headaches in the past but they were very minor in severity and resolved with OTC treatment. They were also very infrequent. He is currently very light sensitive but communicates freely with me and does not appear to be sensitive to sound, as the IV pump was beeping while we were talking. Functional Status: Reports: Other (Headache with light sensativity, nausea with no vomiting.) - Review of Systems General: Reports: Weakness, Fatigue, Malaise. Denies: Appetite Pulmonary: Denies: Shortness of Breath, Pleuritic Chest Pain, Wheezing Cardiovascular: Denies: Chest Pain Gastrointestinal: Reports: Decreased Appetite, Nausea. Denies: Vomiting Musculoskeletal: Reports: No Symptoms Skin: Reports: No Symptoms Neurological: Reports: Headache. Denies: Confusion, Dizziness Psychiatric: Reports: Anxiety - Patient Data Vitals - Most Recent: Last Vital Signs Temp 97.8 F 11/25/16 01:00 Pulse 53 L 11/25/16 03:00 Resp 16 11/25/16 01:00 BP 125/78 11/25/16 11:00 Pulse Ox 99 11/25/16 11:00 Orthostatic Blood Pressure [ 140/94 Standing] Orthostatic Blood Pressure [ 137/87 Sitting] Orthostatic Blood Pressure [ 138/85 Supine] Weight - Most Recent: 183 lb 9.6 oz I&O - Last 24 Hours: Intake & Output 11/24/16 11/25/16 11/25/16 22:59 06:59 14:59 Intake Total 3820 2800 100 Output Total 3905 0462 2250 Balance -80 -3850 -2150 Lab Results Last 24 Hours: Laboratory Results - last 24 hr 11/24/16 11/24/16 11/25/16 Range/Units 15:12 20:05 07:00 WBC 19.38 H (4.23-9.07) K/mm3 RBC 5.45 (4.63-6.08) M/mm3 Hgb 15.8 (13.7-17.5) gm/L Hct 45.2 (40.1-51.0) % MCV 82.9 (79.0-92.2) fl MCH 29.0 (25.7-32.2) pg MCHC 35.0 (32.2-35.5) g/dl RDW Std Deviation 39.4 (35.1-43.9) fL Plt Count 350 H (163-337) K/mm3 MPV 10.6 (9.4-12.3) fl Neut % (Auto) 72.0 H (34.0-67.9) % Lymph % (Auto) 13.3 L (21.8-53.1) % [place] % (Auto) 13.2 H (5.3-12.2) % Eos % (Auto) 0.1 L (0.8-7.0) Baso % (Auto) 0.3 (0.1-1.2) % Neut # (Auto) 13.96 H (1.78-5.38) K/mm3 Lymph # (Auto) 2.58 (1.32-3.57) K/mm3 [place] # (Auto) 2.56 H (0.30-0.82) K/mm3 Eos # (Auto) 0.02 L (0.04-0.54) K/mm3 Baso # (Auto) 0.05 (0.01-0.08) K/mm3 Manual Slide Review Normal smear Sodium (136-145) mEq/L Potassium (3.5-5.1) mEq/L Chloride (98-107) mEq/L Carbon Dioxide (21-32) mEq/L Anion Gap (5-15) BUN (7-18) mg/dL Creatinine (0.7-1.3) mg/dL Est Cr Clr Drug Dosing mL/min Estimated GFR (MDRD) (>60) mL/min BUN/Creatinine Ratio (14-18) Glucose (74-106) mg/dL Lactic Acid (0.4-2.0) mmol/L Calcium (8.5-10.1) mg/dL Magnesium (1.8-2.4) mg/dl Total Bilirubin (0.2-1.0) mg/dL AST (15-37) U/L ALT (16-63) U/L Alkaline Phosphatase (46-116) U/L Troponin I 0.017 0.023 (0.00-0.056) ng/mL C-Reactive Protein (<1.0) mg/dL Total Protein (6.4-8.2) g/dl Albumin (3.4-5.0) g/dl Globulin gm/dL Albumin/Globulin Ratio (1-2) 11/25/16 11/25/16 11/25/16 Range/Units 07:00 07:00 07:00 WBC (4.23-9.07) K/mm3 RBC (4.63-6.08) M/mm3 Hgb (13.7-17.5) gm/L Hct (40.1-51.0) % MCV (79.0-92.2) fl MCH (25.7-32.2) pg MCHC (32.2-35.5) g/dl RDW Std Deviation (35.1-43.9) fL Plt Count (163-337) K/mm3 MPV (9.4-12.3) fl Neut % (Auto) (34.0-67.9) % Lymph % (Auto) (21.8-53.1) % [place] % (Auto) (5.3-12.2) % Eos % (Auto) (0.8-7.0) Baso % (Auto) (0.1-1.2) % Neut # (Auto) (1.78-5.38) K/mm3 Lymph # (Auto) (1.32-3.57) K/mm3 [place] # (Auto) (0.30-0.82) K/mm3 Eos # (Auto) (0.04-0.54) K/mm3 Baso # (Auto) (0.01-0.08) K/mm3 Manual Slide Review Sodium 140 (136-145) mEq/L Potassium 3.2 L (3.5-5.1) mEq/L Chloride 103 (98-107) mEq/L Carbon Dioxide 27 (21-32) mEq/L Anion Gap 13.2 (5-15) BUN 12 (7-18) mg/dL Creatinine 0.9 (0.7-1.3) mg/dL Est Cr Clr Drug Dosing 107.67 mL/min Estimated GFR (MDRD) > 60 (>60) mL/min BUN/Creatinine Ratio 13.3 L (14-18) Glucose 100 (74-106) mg/dL Lactic Acid 1.4 (0.4-2.0) mmol/L Calcium 8.9 (8.5-10.1) mg/dL Magnesium 1.9 (1.8-2.4) mg/dl Total Bilirubin 0.4 (0.2-1.0) mg/dL AST 51 H (15-37) U/L ALT 196 H (16-63) U/L Alkaline Phosphatase 76 (46-116) U/L Troponin I 0.158 H* (0.00-0.056) ng/mL C-Reactive Protein 0.9 (<1.0) mg/dL Total Protein 7.0 (6.4-8.2) g/dl Albumin 3.1 L (3.4-5.0) g/dl Globulin 3.9 gm/dL Albumin/Globulin Ratio 0.8 L (1-2) Med Orders - Current: Current Medications Acetaminophen (Tylenol) 650 mg PO Q4H PRN PRN Reason: Pain/Fever Last Admin: 11/24/16 19:28 Dose: 650 mg Acetaminophen/Butalbital/Caffeine (Fioricet 325-50-40 Mg) 1 tab PO Q4H PRN PRN Reason: Headache Last Admin: 11/25/16 06:30 Dose: 1 tab Albuterol (Proventil Neb Soln) 2.5 mg NEB Q4HRRT PRN PRN Reason: Shortness of Breath Albuterol/Ipratropium (Duoneb 3.0-0.5 Mg/3 Ml) 3 ml NEB Q6HRRT PRN PRN Reason: Shortness of Breath Promethazine HCl 12.5 mg/ (Sodium Chloride) 50.5 mls @ 100 mls/hr IV Q6H PRN PRN Reason: Nausea Dopamine HCl/Dextrose (Dopamine In D5w 400 Mg/250 Ml) 400 mg in 250 mls @ 16.5 mls/hr IV TITRATE LIYAH; 5 MCG/KG/MIN PRN Reason: Protocol Last Admin: 11/24/16 23:12 Dose: 5 mcg/kg/min, 16.5 mls/hr Sodium Chloride (Normal Saline) 1,000 mls @ 50 mls/hr IV ASDIRECTED [facility], [facility] Last Admin: 11/25/16 08:20 Dose: 50 mls/hr Ampicillin Sodium 2 gm/ Sodium (Chloride) 100 mls @ 200 mls/hr IV Q6H LIYAH Piperacillin Sod/Tazobactam (Sod 4.5 gm/ Sodium Chloride) 100 mls @ 25 mls/hr IV Q8H LIYAH Ibuprofen (Motrin) 600 mg PO Q6H PRN PRN Reason: Pain/Fever Last Admin: 11/25/16 09:26 Dose: 600 mg Ketorolac Tromethamine (Toradol) 30 mg IVPUSH Q6H [facility] Last Admin: 11/25/16 07:18 Dose: 30 mg Lorazepam (Ativan) 1 mg IVPUSH Q6H PRN PRN Reason: Anxiety Last Admin: 11/24/16 22:47 Dose: 1 mg Magnesium Oxide (Magnesium Oxide) 400 mg PO DAILY [facility] Last Admin: 11/25/16 09:16 Dose: 400 mg Methylprednisolone Sodium Succinate (Solu-Medrol) 40 mg IVPUSH DAILY [facility] Last Admin: 11/25/16 09:17 Dose: 40 mg Miscellaneous Information (Remove Patch) 1 ea TRDERM Q72H PRN PRN Reason: PATCH REMOVAL Miscellaneous Information (Remove Patch) 1 ea TRDERM DAILY [facility], [facility] Last Admin: 11/25/16 09:18 Dose: 1 ea Nicotine (Habitrol) 21 mg TRDERM DAILY [facility] Last Admin: 11/25/16 09:17 Dose: 21 mg Ondansetron HCl (Zofran) 4 mg IVPUSH Q8H PRN PRN Reason: Nausea/Vomiting Last Admin: 11/25/16 10:21 Dose: 4 mg Pantoprazole Sodium (Protonix) 40 mg PO DAILY@0700 [facility] Last Admin: 11/25/16 06:30 Dose: 40 mg Saccharomyces Boulardii (Florastor) 250 mg PO BID [facility] Last Admin: 11/25/16 09:16 Dose: 250 mg Scopolamine (Transderm-Scop) 1.5 mg TRDERM Q72H PRN PRN Reason: Nausea/Vomiting Last Admin: 11/20/16 20:38 Dose: 1.5 mg Temazepam (Restoril) 15 mg PO BEDTIME PRN PRN Reason: Sleep Last Admin: 11/25/16 01:00 Dose: 15 mg Discontinued Medications Acetaminophen (Tylenol) 975 mg PO NOW ONE Stop: 11/19/16 10:47 Last Admin: 11/19/16 10:49 Dose: 975 mg Albuterol (Proventil Neb Soln) 0.63 mg NEB ONETIME ONE Stop: 11/24/16 14:17 Last Admin: 11/24/16 14:48 Dose: 0.63 mg Albuterol (Proventil Neb Soln) 2.5 mg NEB QIDRT PRN PRN Reason: Shortness of Breath Ampicillin Sodium (Ampicillin) Confirm Administered Dose 1 gm .ROUTE .STK-MED ONE Stop: 11/20/16 21:53 Last Admin: 11/20/16 22:18 Dose: Not Given Ampicillin Sodium (Ampicillin) Confirm Administered Dose 1 gm .ROUTE .STK-MED ONE Stop: 11/20/16 21:54 Last Admin: 11/20/16 22:19 Dose: Not Given Ampicillin Sodium (Ampicillin) Confirm Administered Dose 2,000 mg .ROUTE .STK- MED ONE Stop: 11/21/16 11:04 Last Admin: 11/21/16 11:33 Dose: Not Given Atropine Sulfate (Atropine) 0.5 mg IVPUSH ONETIME ONE Stop: 11/24/16 17:17 Last Admin: 11/24/16 20:04 Dose: Not Given Atropine Sulfate (Atropine 0.1 Mg/Ml) 0.5 mg IVPUSH ONETIME ONE Stop: 11/24/16 17:32 Last Admin: 11/24/16 17:39 Dose: 0.5 mg Atropine Sulfate (Atropine 0.1 Mg/Ml) 0.5 mg IVPUSH ONETIME ONE Stop: 11/24/16 21:19 Last Admin: 11/24/16 21:24 Dose: 0.5 mg Atropine Sulfate (Atropine 0.1 Mg/Ml) Confirm Administered Dose 1 mg .ROUTE .STK -MED ONE Stop: 11/24/16 21:20 Last Admin: 11/24/16 21:25 Dose: Not Given Diatrizoate Meglum/Diatrizoate Sod (Gastrografin 37%) 90 ml PO ONETIME ONE Stop: 11/19/16 13:20 Last Admin: 11/19/16 13:30 Dose: 90 ml Hydromorphone HCl (Dilaudid) 1 mg IVPUSH Q8H PRN PRN Reason: Pain (severe 7-10) Last Admin: 11/20/16 16:54 Dose: 1 mg Hydromorphone HCl (Dilaudid) 1 mg IVPUSH Q4H PRN PRN Reason: Pain (severe 7-10) Last Admin: 11/24/16 10:16 Dose: 1 mg Dextrose/Sodium Chloride (Dextrose 5%-Normal Saline) 1,000 mls @ 999 mls/hr IV [facility] Last Admin: 11/19/16 10:08 Dose: 999 mls/hr Sodium Chloride (Normal Saline) 1,000 mls @ 75 mls/hr IV [facility] Last Admin: 11/22/16 23:59 Dose: 75 mls/hr Levofloxacin/Dextrose 750 mg/ (Premix) 150 mls @ 100 mls/hr IV ONETIME ONE Stop: 11/19/16 15:44 Last Admin: 11/19/16 14:32 Dose: 100 mls/hr Sodium Chloride (Sodium Chloride 0.45%) 1,000 mls @ 999 mls/hr IV [facility] Stop: 11/20/16 19:01 Last Admin: 11/19/16 20:00 Dose: 999 mls/hr Metronidazole 500 mg/ Premix 100 mls @ 100 mls/hr IV Q8H [facility] Last Admin: 11/20/16 17:42 Dose: 100 mls/hr Magnesium Sulfate 2 gm/ Premix 50 mls @ 25 mls/hr IV ONETIME ONE Stop: 11/19/16 19:56 Last Admin: 11/19/16 19:36 Dose: 25 mls/hr Levofloxacin/Dextrose 750 mg/ (Premix) 150 mls @ 100 mls/hr IV Q24H [facility] Last Admin: 11/20/16 14:48 Dose: 100 mls/hr Vancomycin HCl 1 gm/Vancomycin HCl 250 mg/ Sodium Chloride 250 mls @ 166 mls/ hr IV Q12H [facility] Last Admin: 11/20/16 12:58 Dose: 166 mls/hr Piperacillin Sod/Tazobactam (Sod 4.5 gm/ Sodium Chloride) 100 mls @ 200 mls/hr IV ONETIME ONE Stop: 11/20/16 15:29 Last Admin: 11/20/16 16:35 Dose: 200 mls/hr Piperacillin Sod/Tazobactam (Sod 4.5 gm/ Sodium Chloride) 100 mls @ 25 mls/hr IV Q8H [facility] Acyclovir 1,000 mg/ Sodium (Chloride) 120 mls @ 100 mls/hr IV Q8H [facility] Last Admin: 11/23/16 02:40 Dose: 100 mls/hr Ampicillin Sodium 2 gm/ Sodium (Chloride) 100 mls @ 200 mls/hr IV Q4H [facility] Last Admin: 11/20/16 21:42 Dose: Not Given Vancomycin HCl 1 gm/Vancomycin HCl 250 mg/ Sodium Chloride 250 mls @ 170 mls/ hr IV Q12H [facility] Last Admin: 11/22/16 00:46 Dose: 170 mls/hr Ceftriaxone Sodium 2 gm/ (Sodium Chloride) 100 mls @ 200 mls/hr IV Q24H [facility]1983 Stop: 11/24/16 23:00 Last Admin: 11/23/16 21:29 Dose: 200 mls/hr Promethazine HCl 12.5 mg/ (Sodium Chloride) 50.5 mls @ 100 mls/hr IV Q6H [facility] Last Admin: 11/22/16 08:28 Dose: 100 mls/hr Ampicillin Sodium 1 gm/ Sodium (Chloride) 100 mls @ 200 mls/hr IV Q30M [facility]1983 Stop: 11/20/16 22:59 Ampicillin Sodium 2 gm/ Sodium (Chloride) 100 mls @ 200 mls/hr IV ONETIME ONE Stop: 11/21/16 02:29 Last Admin: 11/21/16 02:27 Dose: 200 mls/hr Ampicillin Sodium 2 gm/ Sodium (Chloride) 100 mls @ 200 mls/hr IV ONETIME ONE Stop: 11/21/16 06:29 Last Admin: 11/21/16 06:26 Dose: 200 mls/hr Ampicillin Sodium 2 gm/ Sodium (Chloride) 100 mls @ 200 mls/hr IV Q4H [facility] Last Admin: 11/21/16 11:28 Dose: 200 mls/hr Ampicillin Sodium 2 gm/ Sodium (Chloride) 100 mls @ 200 mls/hr IM ONETIME ONE Stop: 11/20/16 22:44 Last Infusion: 11/20/16 22:20 Dose: Infused Sodium Chloride (Normal Saline) Confirm Administered Dose 100 mls @ as directed .ROUTE .STK-MED ONE Stop: 11/20/16 22:01 Last Admin: 11/20/16 22:19 Dose: Not Given Sodium Chloride (Normal Saline) Confirm Administered Dose 100 mls @ as directed .ROUTE .STK-MED ONE Stop: 11/21/16 11:08 Last Admin: 11/21/16 11:33 Dose: Not Given Sodium Chloride (Normal Saline) Confirm Administered Dose 100 mls @ as directed .ROUTE .STK-MED ONE Stop: 11/21/16 11:09 Last Admin: 11/21/16 11:34 Dose: Not Given Ampicillin Sodium 2 gm/ Sodium (Chloride) 100 mls @ 200 mls/hr IV Q4H [facility] Last Admin: 11/23/16 09:40 Dose: 200 mls/hr Magnesium Sulfate 2 gm/ Premix 50 mls @ 25 mls/hr IV ONETIME ONE Stop: 11/22/16 11:36 Last Admin: 11/22/16 20:22 Dose: Not Given Magnesium Sulfate 2 gm/ Premix 50 mls @ 25 mls/hr IV ONETIME ONE Stop: 11/22/16 17:29 Last Admin: 11/22/16 15:08 Dose: 25 mls/hr Vancomycin HCl 1 gm/Vancomycin HCl 250 mg/ Sodium Chloride 250 mls @ 165 mls/ hr IV Q8H [facility] Last Admin: 11/22/16 12:51 Dose: 165 mls/hr Sodium Chloride (Normal Saline) 1,000 mls @ 999 mls/hr IV ASDIRECTED [facility], [facility]1983 Stop: 11/24/16 10:56 Last Admin: 11/23/16 11:12 Dose: 999 mls/hr Sodium Chloride (Normal Saline) 1,000 mls @ 250 mls/hr IV ASDIRECTED [facility], [facility]1983 Last Admin: 11/24/16 21:08 Dose: 250 mls/hr Sodium Chloride (Normal Saline) Confirm Administered Dose 1,000 mls @ as directed .ROUTE .STK-MED ONE Stop: 11/23/16 10:00 Last Admin: 11/23/16 10:22 Dose: Not Given Sodium Chloride (Normal Saline) 100 mls @ 60 mls/hr IV ASDIRECTED [facility] Last Admin: 11/24/16 16:59 Dose: 60 mls/hr Ampicillin Sodium 2 gm/ Sodium (Chloride) 100 mls @ 200 mls/hr IV Q6H [facility] Last Admin: 11/24/16 20:04 Dose: Not Given Ceftriaxone Sodium 2 gm/ (Sodium Chloride) 100 mls @ 200 mls/hr IV Q24H [facility] Last Admin: 11/24/16 20:32 Dose: 200 mls/hr Ampicillin Sodium 2 gm/ Sodium (Chloride) 100 mls @ 200 mls/hr IV Q6H [facility] Last Admin: 11/24/16 20:00 Dose: 200 mls/hr Ampicillin Sodium 2 gm/ Sodium (Chloride) 100 mls @ 200 mls/hr IV Q6H [facility] Last Admin: 11/25/16 06:29 Dose: 200 mls/hr Piperacillin Sod/Tazobactam (Sod 4.5 gm/ Sodium Chloride) 100 mls @ 200 mls/hr IV ONETIME ONE Stop: 11/25/16 10:29 Last Admin: 11/25/16 10:10 Dose: 200 mls/hr Ibuprofen (Motrin) 600 mg PO ONETIME ONE Stop: 11/19/16 16:10 Last Admin: 11/19/16 16:12 Dose: 600 mg Iopamidol (Isovue-300 (61%)) 125 ml IVPUSH ONETIME ONE Stop: 11/19/16 13:20 Last Admin: 11/19/16 13:30 Dose: 125 ml Iopamidol (Isovue-370 (76%)) 100 ml IVPUSH ONETIME ONE Stop: 11/24/16 16:39 Last Admin: 11/24/16 16:59 Dose: 100 ml Ipratropium [place] (Atrovent) 0.5 mg NEB QIDRT PRN PRN Reason: Shortness of Breath Ketorolac Tromethamine (Toradol) 60 mg IM ONETIME ONE Stop: 11/19/16 20:01 Last Admin: 11/19/16 23:14 Dose: 60 mg Ketorolac Tromethamine (Toradol) 30 mg IVPUSH Q6H [facility] Stop: 11/21/16 08:01 Last Admin: 11/20/16 05:00 Dose: Not Given Ketorolac Tromethamine (Toradol) 30 mg IVPUSH Q6H LIYAH Stop: 11/21/16 12:01 Last Admin: 11/20/16 11:17 Dose: 30 mg Ketorolac Tromethamine (Toradol) 60 mg IVPUSH ONETIME ONE Stop: 11/24/16 20:03 Last Admin: 11/24/16 20:35 Dose: 60 mg Mesalamine (Asacol Hd) 800 mg PO TID [facility] Methylprednisolone Sodium Succinate (Solu-Medrol) 40 mg IVPUSH Q6H [facility] Last Admin: 11/22/16 20:22 Dose: Not Given Methylprednisolone Sodium Succinate (Solu-Medrol) 40 mg IVPUSH Q8H [facility] Last Admin: 11/24/16 13:22 Dose: 40 mg Miscellaneous Information (Remove Patch) 1 ea TRDERM ONETIME ONE Stop: 11/21/16 08:01 Last Admin: 11/21/16 08:19 Dose: Not Given Nicotine (Habitrol) 21 mg TRDERM ONETIME ONE Stop: 11/20/16 08:01 Last Admin: 11/20/16 07:43 Dose: 21 mg Pantoprazole Sodium (Protonix Iv) 40 mg IVPUSH Q12H [facility] Last Admin: 11/23/16 05:23 Dose: 40 mg Saccharomyces Boulardii (Florastor) 500 mg PO BID [facility] Last Admin: 11/22/16 21:26 Dose: 500 mg Sodium Chloride (Saline Flush) 10 ml FLUSH ONETIME ONE Stop: 11/19/16 13:20 Last Admin: 11/19/16 13:30 Dose: 10 ml Sodium Chloride (Saline Flush) 10 ml FLUSH ONETIME ONE Stop: 11/24/16 16:39 Last Admin: 11/24/16 16:59 Dose: 10 ml Vancomycin HCl (Pharmacy To Dose - Vancomycin) 0 dose .XX ASDIRECTED PRN PRN Reason: RX TO DOSE VANCOMYCIN - Exam Quality Assessment: DVT Prophylaxis General: Alert, Oriented, Cooperative HEENT: Pupils Equal, Pupils Reactive Neck: Supple Lungs: Normal Respiratory Effort Cardiovascular: Regular Rate, Regular Rhythm Extremities: Normal Inspection Skin: Warm, Dry, Intact Neurological: No New Focal Deficit Psy/Mental Status: Alert, Normal Affect, Normal Mood - Problem List Review Problem List Initiated/Reviewed/Updated: Yes - Plan Plan:: Impression: Sinus joanie cardia, evaluate hypoxia and pulmonary process Orthostatics were negative Headache, persistent; empiric coverage for bacterial infection and atypical eg West Nile Abdominal pain, infectious cf Crohn's Abnormal CT of abdomen/pelvis Chronic diarrhea, character changed to watery Febrile illness--->see number 1 Dehydration, resolved Plan: Regular diet, increase activity Pain control IV ATB changed to Ampicillin, Vancomycin, Acyclivir, Rocephin Solumedrol DVT/GI prophylaxis SW/CM consult LOS>96 hours for treatment
[2016-11-25] MEDS: Scopolamine 1.5 MG Transdermal Patch TRDERM PRN (12:14)
[2016-11-25] MEDS ORDERED: Ampicillin 2 GM in Sodium Chloride 0.9% 100 ML IV SCH (13:00)
[2016-11-25] MEDS: DOPamine/Dextrose 5%-Water 400 MG/250 ML BAG IV SCH (14:38)
--- NOTE | 2016-11-25 14:56 | PCM.DCSUM1 ---
<Mary He M - Last Filed: 11/25/16 15:02> Discharge Summary - Hospital Course Free Text/Narrative:: 36 year old male with history of chronic diarrhea, has had a three day course of watery stool. CT of abdomen/pelvis suggest Crohn's with terminal ileum involvement. Patient has had fever and chills with decreased appetite. Additionally nausea/vomiting. Elevated temp >102F has also been noted. Patient was initially admitted to ICU, hydrated, started on multiple IV abx, acyclovir. He improved and was transferred out of ICU to med/surg telemetry unit. He continued on IVF. Diet was slowly advanced. He did well, then became bradycardic, asymptomatic. Continuous oximetry was unremarkable. HR's dropped into the 40's. He was dizzy with position changes and ambulation. He was transferred to ICU, given atropine IVP, HR improved to the 70's however hours later was back down into the 40's again with HR's. CXR was obtained with ? pneumonia. Chest CT was obtained, confirming pneumonia. He was restarted on IV abx. Tested for multiple atypical viral and bacterial etiology such as west nile , legionella, lyme, etc. These studies are all pending at time of transfer. Transcuteneous pacer was applied to keep HR above 40. He was started on dopamine drip which maintained HR's in the 60's. He continued to have headaches , intermittent loose stools and intermittent fevers. Decision to transfer to higher level of care for specialty evaluation with infectious disease, cardiology was made. Calls placed for transfer to [facility] per Dr. Mckenzie for acceptance. Patient will be transferred via air today. He is in agreement to transfer for further evaluation. - Discharge Data Discharge Date: 11/25/16 (11/19/16) Discharge Disposition: DC/Tfer to Acute Hospital 02 Condition: Good - Discharge Diagnosis/Problem(s) (1) Bradycardia SNOMED Code(s): 68377728 ICD Code: R00.1 - BRADYCARDIA, UNSPECIFIED Status: Acute Priority: High (2) Pneumonia SNOMED Code(s): 095847980 ICD Code: J18.9 - PNEUMONIA, UNSPECIFIED ORGANISM Status: Acute Priority : High Qualifiers: Pneumonia type: due to unspecified organism (3) Fever of unknown origin SNOMED Code(s): 5898372 ICD Code: R50.9 - FEVER, UNSPECIFIED Status: Acute Priority: High (4) Gastroenteritis SNOMED Code(s): 11971390 ICD Code: K52.9 - NONINFECTIVE GASTROENTERITIS AND COLITIS, UNSPECIFIED Status: Acute Priority: High (5) Headache SNOMED Code(s): 70793122 ICD Code: R51 - HEADACHE Status: Acute Priority: High Qualifiers: Headache type: unspecified - Patient Summary/Data Operative Procedure(s) Performed: None Complications: None Consults: Consultations 11/19/16 18:30 Consult to Physician [CONS] Routine 11/19/16 19:35 Consult to Mfg Assoc [CONS] Routine 11/24/16 11:40 Consult to Stereo Operator [CONS] Routine Labs Pending at D/C: West Nile titer Mycoplasma Legionella Toxoplasma Lyme titer Echocardiogram Recommended Follow-up Testing/Procedures: Transfer to higher level of care--[facility] Planned Operative Procedure(s) after DC: None Hospital Course: As above - Patient Instructions Diet: Usual Diet as Tolerated Activity: As Tolerated Driving: Do Not Drive Showering/Bathing: May Shower Notify Provider of: Fever, Increased Pain, Swelling and Redness, Nausea and/or Vomiting - Discharge Plan Home Medications: Home Meds . [No Known Home Meds] 04/14/16 [History] Patient Handouts: Smoking Cessation, Tips for Success, [id number], Diarrhea, Adult, [id number], Fever, Adult, [id number] Forms: ED Department Discharge Referrals: Papa Alexander PA-C [Primary Care Provider] - Killian Reese MD [Ordering Only Provider] - 01/05/17 3:00 pm (This is Gastrointestional appt in [facility]) - Discharge Summary/Plan Comment DC Time >30 min.: Yes (40 minutes) - General Info Date of Service: 11/25/16 Admission Dx/Problem (Free Text: Admission Diagnosis/Problem Admission Diagnosis/Problem Fever of unknown origin FUO Bradycardia Pneumonia Functional Status: Reports: Pain Controlled, Ambulating, Urinating - Review of Systems General: Reports: Fever, Weakness, Fatigue HEENT: Reports: Headaches Pulmonary: Reports: Cough Gastrointestinal: Reports: Diarrhea (improved today, loose stools yesterday) Neurological: Reports: Headache. Denies: Confusion, Dizziness - Patient Data Vitals - Most Recent: Last Vital Signs Temp 97.4 F 11/25/16 12:00 Pulse 53 L 11/25/16 03:00 Resp 18 11/25/16 14:00 BP 136/77 11/25/16 14:00 Pulse Ox 95 11/25/16 14:00 Orthostatic Blood Pressure [ 140/94 Standing] Orthostatic Blood Pressure [ 137/87 Sitting] Orthostatic Blood Pressure [ 138/85 Supine] Weight - Most Recent: 83.28 kg I&O - Last 24 hours: Intake & Output 11/24/16 11/25/16 11/25/16 22:59 06:59 14:59 Intake Total 3821 2800 1398 Output Total 3904 5744 7260 Balance -37 -9579 -0643 Lab Results - Last 24 hrs: Laboratory Results - last 24 hr 11/24/16 11/24/16 11/25/16 Range/Units 15:12 20:05 07:00 WBC 19.38 H (4.23-9.07) K/mm3 RBC 5.45 (4.63-6.08) M/mm3 Hgb 15.8 (13.7-17.5) gm/L Hct 45.2 (40.1-51.0) % MCV 82.9 (79.0-92.2) fl MCH 29.0 (25.7-32.2) pg MCHC 35.0 (32.2-35.5) g/dl RDW Std Deviation 39.4 (35.1-43.9) fL Plt Count 350 H (163-337) K/mm3 MPV 10.6 (9.4-12.3) fl Neut % (Auto) 72.0 H (34.0-67.9) % Lymph % (Auto) 13.3 L (21.8-53.1) % [place] % (Auto) 13.2 H (5.3-12.2) % Eos % (Auto) 0.1 L (0.8-7.0) Baso % (Auto) 0.3 (0.1-1.2) % Neut # (Auto) 13.96 H (1.78-5.38) K/mm3 Lymph # (Auto) 2.58 (1.32-3.57) K/mm3 [place] # (Auto) 2.56 H (0.30-0.82) K/mm3 Eos # (Auto) 0.02 L (0.04-0.54) K/mm3 Baso # (Auto) 0.05 (0.01-0.08) K/mm3 Manual Slide Review Normal smear Sodium (136-145) mEq/L Potassium (3.5-5.1) mEq/L Chloride (98-107) mEq/L Carbon Dioxide (21-32) mEq/L Anion Gap (5-15) BUN (7-18) mg/dL Creatinine (0.7-1.3) mg/dL Est Cr Clr Drug Dosing mL/min Estimated GFR (MDRD) (>60) mL/min BUN/Creatinine Ratio (14-18) Glucose (74-106) mg/dL Lactic Acid (0.4-2.0) mmol/L Calcium (8.5-10.1) mg/dL Magnesium (1.8-2.4) mg/dl Total Bilirubin (0.2-1.0) mg/dL AST (15-37) U/L ALT (16-63) U/L Alkaline Phosphatase (46-116) U/L Troponin I 0.017 0.023 (0.00-0.056) ng/mL C-Reactive Protein (<1.0) mg/dL Total Protein (6.4-8.2) g/dl Albumin (3.4-5.0) g/dl Globulin gm/dL Albumin/Globulin Ratio (1-2) 11/25/16 11/25/16 11/25/16 Range/Units 07:00 07:00 07:00 WBC (4.23-9.07) K/mm3 RBC (4.63-6.08) M/mm3 Hgb (13.7-17.5) gm/L Hct (40.1-51.0) % MCV (79.0-92.2) fl MCH (25.7-32.2) pg MCHC (32.2-35.5) g/dl RDW Std Deviation (35.1-43.9) fL Plt Count (163-337) K/mm3 MPV (9.4-12.3) fl Neut % (Auto) (34.0-67.9) % Lymph % (Auto) (21.8-53.1) % [place] % (Auto) (5.3-12.2) % Eos % (Auto) (0.8-7.0) Baso % (Auto) (0.1-1.2) % Neut # (Auto) (1.78-5.38) K/mm3 Lymph # (Auto) (1.32-3.57) K/mm3 [place] # (Auto) (0.30-0.82) K/mm3 Eos # (Auto) (0.04-0.54) K/mm3 Baso # (Auto) (0.01-0.08) K/mm3 Manual Slide Review Sodium 140 (136-145) mEq/L Potassium 3.2 L (3.5-5.1) mEq/L Chloride 103 (98-107) mEq/L Carbon Dioxide 27 (21-32) mEq/L Anion Gap 13.2 (5-15) BUN 12 (7-18) mg/dL Creatinine 0.9 (0.7-1.3) mg/dL Est Cr Clr Drug Dosing 107.67 mL/min Estimated GFR (MDRD) > 60 (>60) mL/min BUN/Creatinine Ratio 13.3 L (14-18) Glucose 100 (74-106) mg/dL Lactic Acid 1.4 (0.4-2.0) mmol/L Calcium 8.9 (8.5-10.1) mg/dL Magnesium 1.9 (1.8-2.4) mg/dl Total Bilirubin 0.4 (0.2-1.0) mg/dL AST 51 H (15-37) U/L ALT 196 H (16-63) U/L Alkaline Phosphatase 76 (46-116) U/L Troponin I 0.158 H* (0.00-0.056) ng/mL C-Reactive Protein 0.9 (<1.0) mg/dL Total Protein 7.0 (6.4-8.2) g/dl Albumin 3.1 L (3.4-5.0) g/dl Globulin 3.9 gm/dL Albumin/Globulin Ratio 0.8 L (1-2) Med Orders - Current: Current Medications Acetaminophen (Tylenol) 650 mg PO Q4H PRN PRN Reason: Pain/Fever Last Admin: 11/24/16 19:28 Dose: 650 mg Acetaminophen/Butalbital/Caffeine (Fioricet 325-50-40 Mg) 1 tab PO Q4H PRN PRN Reason: Headache Last Admin: 11/25/16 13:46 Dose: 1 tab Albuterol (Proventil Neb Soln) 2.5 mg NEB Q4HRRT PRN PRN Reason: Shortness of Breath Albuterol/Ipratropium (Duoneb 3.0-0.5 Mg/3 Ml) 3 ml NEB Q6HRRT PRN PRN Reason: Shortness of Breath Promethazine HCl 12.5 mg/ (Sodium Chloride) 50.5 mls @ 100 mls/hr IV Q6H PRN PRN Reason: Nausea Dopamine HCl/Dextrose (Dopamine In D5w 400 Mg/250 Ml) 400 mg in 250 mls @ 16.5 mls/hr IV TITRATE LIYAH; 5 MCG/KG/MIN PRN Reason: Protocol Last Admin: 11/25/16 14:38 Dose: 5 mcg/kg/min, 16.5 mls/hr Sodium Chloride (Normal Saline) 1,000 mls @ 50 mls/hr IV ASDIRECTED [facility] Last Admin: 11/25/16 08:20 Dose: 50 mls/hr Ampicillin Sodium 2 gm/ Sodium (Chloride) 100 mls @ 200 mls/hr IV Q6H [facility] Last Admin: 11/25/16 14:06 Dose: 200 mls/hr Piperacillin Sod/Tazobactam (Sod 4.5 gm/ Sodium Chloride) 100 mls @ 25 mls/hr IV Q8H [facility] Doxycycline Hyclate 100 mg/ (Sodium Chloride) 100 mls @ 100 mls/hr IV Q12HR [facility] Ibuprofen (Motrin) 600 mg PO Q6H PRN PRN Reason: Pain/Fever Last Admin: 11/25/16 09:26 Dose: 600 mg Ketorolac Tromethamine (Toradol) 30 mg IVPUSH Q6H [facility] Last Admin: 11/25/16 13:46 Dose: 30 mg Lorazepam (Ativan) 1 mg IVPUSH Q6H PRN PRN Reason: Anxiety Last Admin: 11/24/16 22:47 Dose: 1 mg Magnesium Oxide (Magnesium Oxide) 400 mg PO DAILY [facility] Last Admin: 11/25/16 09:16 Dose: 400 mg Methylprednisolone Sodium Succinate (Solu-Medrol) 40 mg IVPUSH DAILY [facility] Last Admin: 11/25/16 09:17 Dose: 40 mg Miscellaneous Information (Remove Patch) 1 ea TRDERM Q72H PRN PRN Reason: PATCH REMOVAL Miscellaneous Information (Remove Patch) 1 ea TRDERM DAILY [facility] Last Admin: 11/25/16 09:18 Dose: 1 ea Nicotine (Habitrol) 21 mg TRDERM DAILY [facility] Last Admin: 11/25/16 09:17 Dose: 21 mg Ondansetron HCl (Zofran) 4 mg IVPUSH Q8H PRN PRN Reason: Nausea/Vomiting Last Admin: 11/25/16 10:21 Dose: 4 mg Pantoprazole Sodium (Protonix) 40 mg PO DAILY@0700 [facility] Last Admin: 11/25/16 06:30 Dose: 40 mg Saccharomyces Boulardii (Florastor) 250 mg PO BID [facility] Last Admin: 11/25/16 09:16 Dose: 250 mg Scopolamine (Transderm-Scop) 1.5 mg TRDERM Q72H PRN PRN Reason: Nausea/Vomiting Last Admin: 11/25/16 12:14 Dose: 1.5 mg Temazepam (Restoril) 15 mg PO BEDTIME PRN PRN Reason: Sleep Last Admin: 11/25/16 01:00 Dose: 15 mg Discontinued Medications Acetaminophen (Tylenol) 975 mg PO NOW ONE Stop: 11/19/16 10:47 Last Admin: 11/19/16 10:49 Dose: 975 mg Albuterol (Proventil Neb Soln) 0.63 mg NEB ONETIME ONE Stop: 11/24/16 14:17 Last Admin: 11/24/16 14:48 Dose: 0.63 mg Albuterol (Proventil Neb Soln) 2.5 mg NEB QIDRT PRN PRN Reason: Shortness of Breath Ampicillin Sodium (Ampicillin) Confirm Administered Dose 1 gm .ROUTE .STK-MED ONE Stop: 11/20/16 21:53 Last Admin: 11/20/16 22:18 Dose: Not Given Ampicillin Sodium (Ampicillin) Confirm Administered Dose 1 gm .ROUTE .STK-MED ONE Stop: 11/20/16 21:54 Last Admin: 08/11/17 22:19 Dose: Not Given Ampicillin Sodium (Ampicillin) Confirm Administered Dose 2,000 mg .ROUTE .STK- MED ONE Stop: 11/21/16 11:04 Last Admin: 11/21/16 11:33 Dose: Not Given Atropine Sulfate (Atropine) 0.5 mg IVPUSH ONETIME ONE Stop: 11/24/16 17:17 Last Admin: 11/24/16 20:04 Dose: Not Given Atropine Sulfate (Atropine 0.1 Mg/Ml) 0.5 mg IVPUSH ONETIME ONE Stop: 11/24/16 17:32 Last Admin: 11/24/16 17:39 Dose: 0.5 mg Atropine Sulfate (Atropine 0.1 Mg/Ml) 0.5 mg IVPUSH ONETIME ONE Stop: 11/24/16 21:19 Last Admin: 11/24/16 21:24 Dose: 0.5 mg Atropine Sulfate (Atropine 0.1 Mg/Ml) Confirm Administered Dose 1 mg .ROUTE .STK -MED ONE Stop: 11/24/16 21:20 Last Admin: 11/24/16 21:25 Dose: Not Given Diatrizoate Meglum/Diatrizoate Sod (Gastrografin 37%) 90 ml PO ONETIME ONE Stop: 11/19/16 13:20 Last Admin: 11/19/16 13:30 Dose: 90 ml Hydromorphone HCl (Dilaudid) 1 mg IVPUSH Q8H PRN PRN Reason: Pain (severe 7-10) Last Admin: 11/20/16 16:54 Dose: 1 mg Hydromorphone HCl (Dilaudid) 1 mg IVPUSH Q4H PRN PRN Reason: Pain (severe 7-10) Last Admin: 11/24/16 10:16 Dose: 1 mg Dextrose/Sodium Chloride (Dextrose 5%-Normal Saline) 1,000 mls @ 999 mls/hr IV ASDIRECTED [facility] Last Admin: 11/19/16 10:08 Dose: 999 mls/hr Sodium Chloride (Normal Saline) 1,000 mls @ 75 mls/hr IV ASDIRECTED [facility] Last Admin: 11/22/16 23:59 Dose: 75 mls/hr Levofloxacin/Dextrose 750 mg/ (Premix) 150 mls @ 100 mls/hr IV ONETIME ONE Stop: 11/19/16 15:44 Last Admin: 11/19/16 14:32 Dose: 100 mls/hr Sodium Chloride (Sodium Chloride 0.45%) 1,000 mls @ 999 mls/hr IV ASDIRECTED [facility] Stop: 11/20/16 19:01 Last Admin: 11/19/16 20:00 Dose: 999 mls/hr Metronidazole 500 mg/ Premix 100 mls @ 100 mls/hr IV Q8H [facility] Last Admin: 11/20/16 17:42 Dose: 100 mls/hr Magnesium Sulfate 2 gm/ Premix 50 mls @ 25 mls/hr IV ONETIME ONE Stop: 11/19/16 19:56 Last Admin: 11/19/16 19:36 Dose: 25 mls/hr Levofloxacin/Dextrose 750 mg/ (Premix) 150 mls @ 100 mls/hr IV Q24H [facility] Last Admin: 11/20/16 14:48 Dose: 100 mls/hr Vancomycin HCl 1 gm/Vancomycin HCl 250 mg/ Sodium Chloride 250 mls @ 166 mls/ hr IV Q12H [facility] Last Admin: 11/20/16 12:58 Dose: 166 mls/hr Piperacillin Sod/Tazobactam (Sod 4.5 gm/ Sodium Chloride) 100 mls @ 200 mls/hr IV ONETIME ONE Stop: 11/20/16 15:29 Last Admin: 11/20/16 16:35 Dose: 200 mls/hr Piperacillin Sod/Tazobactam (Sod 4.5 gm/ Sodium Chloride) 100 mls @ 25 mls/hr IV Q8H [facility] Acyclovir 1,000 mg/ Sodium (Chloride) 120 mls @ 100 mls/hr IV Q8H [facility] Last Admin: 11/23/16 02:40 Dose: 100 mls/hr Ampicillin Sodium 2 gm/ Sodium (Chloride) 100 mls @ 200 mls/hr IV Q4H [facility] Last Admin: 11/20/16 21:42 Dose: Not Given Vancomycin HCl 1 gm/Vancomycin HCl 250 mg/ Sodium Chloride 250 mls @ 170 mls/ hr IV Q12H [facility] Last Admin: 11/22/16 00:46 Dose: 170 mls/hr Ceftriaxone Sodium 2 gm/ (Sodium Chloride) 100 mls @ 200 mls/hr IV Q24H [facility] Stop: 11/24/16 23:00 Last Admin: 11/23/16 21:29 Dose: 200 mls/hr Promethazine HCl 12.5 mg/ (Sodium Chloride) 50.5 mls @ 100 mls/hr IV Q6H [facility] Last Admin: 11/22/16 08:28 Dose: 100 mls/hr Ampicillin Sodium 1 gm/ Sodium (Chloride) 100 mls @ 200 mls/hr IV Q30M [facility] Stop: 11/20/16 22:59 Ampicillin Sodium 2 gm/ Sodium (Chloride) 100 mls @ 200 mls/hr IV ONETIME ONE Stop: 11/21/16 02:29 Last Admin: 11/21/16 02:27 Dose: 200 mls/hr Ampicillin Sodium 2 gm/ Sodium (Chloride) 100 mls @ 200 mls/hr IV ONETIME ONE Stop: 11/21/16 06:29 Last Admin: 11/21/16 06:26 Dose: 200 mls/hr Ampicillin Sodium 2 gm/ Sodium (Chloride) 100 mls @ 200 mls/hr IV Q4H [facility] Last Admin: 11/21/16 11:28 Dose: 200 mls/hr Ampicillin Sodium 2 gm/ Sodium (Chloride) 100 mls @ 200 mls/hr IM ONETIME ONE Stop: 11/20/16 22:44 Last Infusion: 11/20/16 22:20 Dose: Infused Sodium Chloride (Normal Saline) Confirm Administered Dose 100 mls @ as directed .ROUTE .STK-MED ONE Stop: 11/20/16 22:01 Last Admin: 11/20/16 22:19 Dose: Not Given Sodium Chloride (Normal Saline) Confirm Administered Dose 100 mls @ as directed .ROUTE .STK-MED ONE Stop: 11/21/16 11:08 Last Admin: 11/21/16 11:33 Dose: Not Given Sodium Chloride (Normal Saline) Confirm Administered Dose 100 mls @ as directed .ROUTE .STK-MED ONE Stop: 11/21/16 11:09 Last Admin: 11/21/16 11:34 Dose: Not Given Ampicillin Sodium 2 gm/ Sodium (Chloride) 100 mls @ 200 mls/hr IV Q4H [facility] Last Admin: 11/23/16 09:40 Dose: 200 mls/hr Magnesium Sulfate 2 gm/ Premix 50 mls @ 25 mls/hr IV ONETIME ONE Stop: 11/22/16 11:36 Last Admin: 11/22/16 20:22 Dose: Not Given Magnesium Sulfate 2 gm/ Premix 50 mls @ 25 mls/hr IV ONETIME ONE Stop: 11/22/16 17:29 Last Admin: 11/22/16 15:08 Dose: 25 mls/hr Vancomycin HCl 1 gm/Vancomycin HCl 250 mg/ Sodium Chloride 250 mls @ 165 mls/ hr IV Q8H [facility] Last Admin: 11/22/16 12:51 Dose: 165 mls/hr Sodium Chloride (Normal Saline) 1,000 mls @ 999 mls/hr IV ASDIRECTED [facility] Stop: 11/24/16 10:56 Last Admin: 11/23/16 11:12 Dose: 999 mls/hr Sodium Chloride (Normal Saline) 1,000 mls @ 250 mls/hr IV ASDIRECTED [facility] Last Admin: 11/24/16 21:08 Dose: 250 mls/hr Sodium Chloride (Normal Saline) Confirm Administered Dose 1,000 mls @ as directed .ROUTE .[facility] ONE Stop: 11/23/16 10:00 Last Admin: 11/23/16 10:22 Dose: Not Given Sodium Chloride (Normal Saline) 100 mls @ 60 mls/hr IV ASDIRECTED [facility] Last Admin: 11/24/16 16:59 Dose: 60 mls/hr Ampicillin Sodium 2 gm/ Sodium (Chloride) 100 mls @ 200 mls/hr IV Q6H [facility] Last Admin: 11/24/16 20:04 Dose: Not Given Ceftriaxone Sodium 2 gm/ (Sodium Chloride) 100 mls @ 200 mls/hr IV Q24H [facility] Last Admin: 11/24/16 20:32 Dose: 200 mls/hr Ampicillin Sodium 2 gm/ Sodium (Chloride) 100 mls @ 200 mls/hr IV Q6H [facility] Last Admin: 11/24/16 20:00 Dose: 200 mls/hr Ampicillin Sodium 2 gm/ Sodium (Chloride) 100 mls @ 200 mls/hr IV Q6H [facility] Last Admin: 11/25/16 06:29 Dose: 200 mls/hr Piperacillin Sod/Tazobactam (Sod 4.5 gm/ Sodium Chloride) 100 mls @ 200 mls/hr IV ONETIME ONE Stop: 11/25/16 10:29 Last Admin: 11/25/16 10:10 Dose: 200 mls/hr Magnesium Sulfate 2 gm/ Premix 50 mls @ 25 mls/hr IV ONETIME ONE Stop: 11/25/16 13:53 Last Admin: 11/25/16 12:04 Dose: 25 mls/hr Ibuprofen (Motrin) 600 mg PO ONETIME ONE Stop: 11/19/16 16:10 Last Admin: 11/19/16 16:12 Dose: 600 mg Iopamidol (Isovue-300 (61%)) 125 ml IVPUSH ONETIME ONE Stop: 11/19/16 13:20 Last Admin: 11/19/16 13:30 Dose: 125 ml Iopamidol (Isovue-370 (76%)) 100 ml IVPUSH ONETIME ONE Stop: 11/24/16 16:39 Last Admin: 11/24/16 16:59 Dose: 100 ml Ipratropium [place] (Atrovent) 0.5 mg NEB QIDRT PRN PRN Reason: Shortness of Breath Ketorolac Tromethamine (Toradol) 60 mg IM ONETIME ONE Stop: 11/19/16 20:01 Last Admin: 11/19/16 23:14 Dose: 60 mg Ketorolac Tromethamine (Toradol) 30 mg IVPUSH Q6H [facility] Stop: 11/21/16 08:01 Last Admin: 11/20/16 05:00 Dose: Not Given Ketorolac Tromethamine (Toradol) 30 mg IVPUSH Q6H [facility] Stop: 11/21/16 12:01 Last Admin: 11/20/16 11:17 Dose: 30 mg Ketorolac Tromethamine (Toradol) 60 mg IVPUSH ONETIME ONE Stop: 11/24/16 20:03 Last Admin: 11/24/16 20:35 Dose: 60 mg Mesalamine (Asacol Hd) 800 mg PO TID [facility] Methylprednisolone Sodium Succinate (Solu-Medrol) 40 mg IVPUSH Q6H [facility] Last Admin: 11/22/16 20:22 Dose: Not Given Methylprednisolone Sodium Succinate (Solu-Medrol) 40 mg IVPUSH Q8H [facility] Last Admin: 11/24/16 13:22 Dose: 40 mg Miscellaneous Information (Remove Patch) 1 ea TRDERM ONETIME ONE Stop: 11/21/16 08:01 Last Admin: 11/21/16 08:19 Dose: Not Given Nicotine (Habitrol) 21 mg TRDERM ONETIME ONE Stop: 11/20/16 08:01 Last Admin: 11/20/16 07:43 Dose: 21 mg Pantoprazole Sodium (Protonix Iv) 40 mg IVPUSH Q12H [facility] Last Admin: 11/23/16 05:23 Dose: 40 mg Potassium Chloride (Potassium Chloride) 60 meq PO ONETIME ONE Stop: 11/25/16 11:54 Last Admin: 11/25/16 12:03 Dose: 60 meq Saccharomyces Boulardii (Florastor) 500 mg PO BID [facility] Last Admin: 11/22/16 21:26 Dose: 500 mg Sodium Chloride (Saline Flush) 10 ml FLUSH ONETIME ONE Stop: 11/19/16 13:20 Last Admin: 11/19/16 13:30 Dose: 10 ml Sodium Chloride (Saline Flush) 10 ml FLUSH ONETIME ONE Stop: 11/24/16 16:39 Last Admin: 11/24/16 16:59 Dose: 10 ml Vancomycin HCl (Pharmacy To Dose - Vancomycin) 0 dose .XX ASDIRECTED PRN PRN Reason: RX TO DOSE VANCOMYCIN - Exam Quality Assessment: Reports: DVT Prophylaxis General: Reports: Alert, Oriented, Cooperative, No Acute Distress HEENT: Reports: Pupils Equal, EOMI, Mucous Membr. Moist/[place] Neck: Reports: Supple Lungs: Reports: Normal Respiratory Effort Cardiovascular: Reports: Bradycardia GI/Abdominal Exam: Normal Bowel Sounds, Non-Tender (Male) Exam: Deferred Rectal (Males) Exam: Deferred Neurological: Reports: No New Focal Deficit Psy/Mental Status: Reports: Alert, Normal Affect, Normal Mood *Q Meaningful Use (DIS) - VTE *Q VTE Criteria *Q: - Stroke *Q Stroke Criteria *Q: - AMI *Q AMI Criteria *Q: <Nida Mckenzie - Last Filed: 11/28/16 13:54> Discharge Summary - Hospital Course Free Text/Narrative:: Initial antibiotic therapy was based on GI symptoms, however with recent case of West Nile in [place], coverage was changed. West Nile lab results were not received before transfer; several labs were pending at the time of transfer. A 2D echo was performed which was within normal limits. He developed bradycardia, complained of more profound dizziness, had minimal response to initial provocation. He however did respond to low dose dopamine at 5 mcg/kg/min. Blood pressure did not require pressure support, he maintained a MAP>65 before the DA. A CXR before transfer showed bilateral infiltrates, HCAP was covered. Blood cultures remained negative; he was transferred for a higher level of care. ICU was not required or step down unit after the DA was turned off; he was accepted by Dr Sorenson, hospitalist. Initially Dr Amezcua, critical care physician was informed and had accepted the patient for transfer. This changed after he was off pressor support. A heads up was given to the senior storage engineer content manager, who acknowledged the information. His services were not required at the time of transfer. - Discharge Diagnosis/Problem(s) (1) Crohns disease of small intestine SNOMED Code(s): 29848627 ICD Code: K50.00 - CROHN'S DISEASE OF SMALL INTESTINE WITHOUT COMPLICATIONS Status: Acute Qualifiers: Digestive disease complication type: without complication Qualified Code(s) : K50.00 - Crohn's disease of small intestine without complications (2) Fever of unknown origin SNOMED Code(s): 9793373 ICD Code: R50.9 - FEVER, UNSPECIFIED Status: Acute Priority: High (3) Gastroenteritis SNOMED Code(s): 69638582 ICD Code: K52.9 - NONINFECTIVE GASTROENTERITIS AND COLITIS, UNSPECIFIED Status: Acute Priority: High (4) Tobacco dependence SNOMED Code(s): 97528128 ICD Code: F17.200 - NICOTINE DEPENDENCE, UNSPECIFIED, UNCOMPLICATED Status : Acute (5) Headache SNOMED Code(s): 12905292 ICD Code: R51 - HEADACHE Status: Acute Priority: High Qualifiers: Headache type: unspecified - Patient Summary/Data Consults: Consultations 11/19/16 18:30 Consult to Physician [CONS] Routine 11/19/16 19:35 Consult to [employer]fg Assoc [CONS] Routine 11/24/16 11:40 Consult to Stereo Operator [CONS] Routine - Patient Data Vitals - Most Recent: Last Vital Signs Temp 36.3 C 11/25/16 12:00 Pulse 53 L 11/25/16 03:00 Resp 18 11/25/16 14:00 BP 142/97 H 11/25/16 15:00 Pulse Ox 97 11/25/16 15:00 Orthostatic Blood Pressure [ 140/94 Standing] Orthostatic Blood Pressure [ 137/87 Sitting] Orthostatic Blood Pressure [ 138/85 Supine] Lab Results - Last 24 hrs: Laboratory Results - last 24 hr 11/25/16 11/25/16 Range/Units 07:00 07:00 B.burgdorferi IgG/IgM Negative (NEG) Toxoplasma gondii IgG Positive H (NEG) Toxoplasma gondii IgM Negative (NEG) MANDY Results - Last 24 hrs: Microbiology 11/24/16 17:25 Aerobic Blood Culture - Preliminary Blood - Venous - Lab Draw NO GROWTH AFTER 3 DAYS Anaerobic Blood Culture - Preliminary NO GROWTH AFTER 3 DAYS 11/24/16 17:14 Aerobic Blood Culture - Preliminary Blood - Venous NO GROWTH AFTER 3 DAYS Anaerobic Blood Culture - Preliminary NO GROWTH AFTER 3 DAYS Med Orders - Current: Current Medications Discontinued Medications Acetaminophen (Tylenol) 975 mg PO NOW ONE Stop: 11/19/16 10:47 Last Admin: 11/19/16 10:49 Dose: 975 mg Acetaminophen (Tylenol) 650 mg PO Q4H PRN PRN Reason: Pain/Fever Last Admin: 11/24/16 19:28 Dose: 650 mg Acetaminophen/Butalbital/Caffeine (Fioricet 325-50-40 Mg) 1 tab PO Q4H PRN PRN Reason: Headache Last Admin: 11/25/16 13:46 Dose: 1 tab Albuterol (Proventil Neb Soln) 0.63 mg NEB ONETIME ONE Stop: 11/24/16 14:17 Last Admin: 11/24/16 14:48 Dose: 0.63 mg Albuterol (Proventil Neb Soln) 2.5 mg NEB QIDRT PRN PRN Reason: Shortness of Breath Albuterol (Proventil Neb Soln) 2.5 mg NEB Q4HRRT PRN PRN Reason: Shortness of Breath Albuterol/Ipratropium (Duoneb 3.0-0.5 Mg/3 Ml) 3 ml NEB Q6HRRT PRN PRN Reason: Shortness of Breath Ampicillin Sodium (Ampicillin) Confirm Administered Dose 1 gm .ROUTE .STK-MED ONE Stop: 11/20/16 21:53 Last Admin: 11/20/16 22:18 Dose: Not Given Ampicillin Sodium (Ampicillin) Confirm Administered Dose 1 gm .ROUTE .STK-MED ONE Stop: 11/20/16 21:54 Last Admin: 08/11/17 22:19 Dose: Not Given Ampicillin Sodium (Ampicillin) Confirm Administered Dose 2,000 mg .ROUTE .STK- MED ONE Stop: 11/21/16 11:04 Last Admin: 11/21/16 11:33 Dose: Not Given Atropine Sulfate (Atropine) 0.5 mg IVPUSH ONETIME ONE Stop: 11/24/16 17:17 Last Admin: 11/24/16 20:04 Dose: Not Given Atropine Sulfate (Atropine 0.1 Mg/Ml) 0.5 mg IVPUSH ONETIME ONE Stop: 11/24/16 17:32 Last Admin: 11/24/16 17:39 Dose: 0.5 mg Atropine Sulfate (Atropine 0.1 Mg/Ml) 0.5 mg IVPUSH ONETIME ONE Stop: 11/24/16 21:19 Last Admin: 11/24/16 21:24 Dose: 0.5 mg Atropine Sulfate (Atropine 0.1 Mg/Ml) Confirm Administered Dose 1 mg .ROUTE .STK -MED ONE Stop: 11/24/16 21:20 Last Admin: 11/24/16 21:25 Dose: Not Given Diatrizoate Meglum/Diatrizoate Sod (Gastrografin 37%) 90 ml PO ONETIME ONE Stop: 11/19/16 13:20 Last Admin: 11/19/16 13:30 Dose: 90 ml Hydromorphone HCl (Dilaudid) 1 mg IVPUSH Q8H PRN PRN Reason: Pain (severe 7-10) Last Admin: 11/20/16 16:54 Dose: 1 mg Hydromorphone HCl (Dilaudid) 1 mg IVPUSH Q4H PRN PRN Reason: Pain (severe 7-10) Last Admin: 11/24/16 10:16 Dose: 1 mg Dextrose/Sodium Chloride (Dextrose 5%-Normal Saline) 1,000 mls @ 999 mls/hr IV ASDIRECTED [facility] Last Admin: 11/19/16 10:08 Dose: 999 mls/hr Sodium Chloride (Normal Saline) 1,000 mls @ 75 mls/hr IV ASDIRECTED [facility] Last Admin: 11/22/16 23:59 Dose: 75 mls/hr Levofloxacin/Dextrose 750 mg/ (Premix) 150 mls @ 100 mls/hr IV ONETIME ONE Stop: 11/19/16 15:44 Last Admin: 11/19/16 14:32 Dose: 100 mls/hr Sodium Chloride (Sodium Chloride 0.45%) 1,000 mls @ 999 mls/hr IV ASDIRECTED [facility] Stop: 11/20/16 19:01 Last Admin: 11/19/16 20:00 Dose: 999 mls/hr Metronidazole 500 mg/ Premix 100 mls @ 100 mls/hr IV Q8H [facility] Last Admin: 11/20/16 17:42 Dose: 100 mls/hr Magnesium Sulfate 2 gm/ Premix 50 mls @ 25 mls/hr IV ONETIME ONE Stop: 11/19/16 19:56 Last Admin: 11/19/16 19:36 Dose: 25 mls/hr Levofloxacin/Dextrose 750 mg/ (Premix) 150 mls @ 100 mls/hr IV Q24H [facility] Last Admin: 11/20/16 14:48 Dose: 100 mls/hr Vancomycin HCl 1 gm/Vancomycin HCl 250 mg/ Sodium Chloride 250 mls @ 166 mls/ hr IV Q12H [facility] Last Admin: 11/20/16 12:58 Dose: 166 mls/hr Piperacillin Sod/Tazobactam (Sod 4.5 gm/ Sodium Chloride) 100 mls @ 200 mls/hr IV ONETIME ONE Stop: 11/20/16 15:29 Last Admin: 11/20/16 16:35 Dose: 200 mls/hr Piperacillin Sod/Tazobactam (Sod 4.5 gm/ Sodium Chloride) 100 mls @ 25 mls/hr IV Q8H [facility] Acyclovir 1,000 mg/ Sodium (Chloride) 120 mls @ 100 mls/hr IV Q8H [facility] Last Admin: 11/23/16 02:40 Dose: 100 mls/hr Ampicillin Sodium 2 gm/ Sodium (Chloride) 100 mls @ 200 mls/hr IV Q4H [facility] Last Admin: 11/20/16 21:42 Dose: Not Given Vancomycin HCl 1 gm/Vancomycin HCl 250 mg/ Sodium Chloride 250 mls @ 170 mls/ hr IV Q12H [facility] Last Admin: 11/22/16 00:46 Dose: 170 mls/hr Ceftriaxone Sodium 2 gm/ (Sodium Chloride) 100 mls @ 200 mls/hr IV Q24H [facility] Stop: 11/24/16 23:00 Last Admin: 11/23/16 21:29 Dose: 200 mls/hr Promethazine HCl 12.5 mg/ (Sodium Chloride) 50.5 mls @ 100 mls/hr IV Q6H [facility] Last Admin: 11/22/16 08:28 Dose: 100 mls/hr Ampicillin Sodium 1 gm/ Sodium (Chloride) 100 mls @ 200 mls/hr IV Q30M [facility] Stop: 11/20/16 22:59 Ampicillin Sodium 2 gm/ Sodium (Chloride) 100 mls @ 200 mls/hr IV ONETIME ONE Stop: 11/21/16 02:29 Last Admin: 11/21/16 02:27 Dose: 200 mls/hr Ampicillin Sodium 2 gm/ Sodium (Chloride) 100 mls @ 200 mls/hr IV ONETIME ONE Stop: 11/21/16 06:29 Last Admin: 11/21/16 06:26 Dose: 200 mls/hr Ampicillin Sodium 2 gm/ Sodium (Chloride) 100 mls @ 200 mls/hr IV Q4H [facility] Last Admin: 11/21/16 11:28 Dose: 200 mls/hr Ampicillin Sodium 2 gm/ Sodium (Chloride) 100 mls @ 200 mls/hr IM ONETIME ONE Stop: 11/20/16 22:44 Last Infusion: 11/20/16 22:20 Dose: Infused Sodium Chloride (Normal Saline) Confirm Administered Dose 100 mls @ as directed .ROUTE .STK-MED ONE Stop: 11/20/16 22:01 Last Admin: 11/20/16 22:19 Dose: Not Given Sodium Chloride (Normal Saline) Confirm Administered Dose 100 mls @ as directed .ROUTE .STK-MED ONE Stop: 11/21/16 11:08 Last Admin: 11/21/16 11:33 Dose: Not Given Sodium Chloride (Normal Saline) Confirm Administered Dose 100 mls @ as directed .ROUTE .STK-MED ONE Stop: 11/21/16 11:09 Last Admin: 11/21/16 11:34 Dose: Not Given Ampicillin Sodium 2 gm/ Sodium (Chloride) 100 mls @ 200 mls/hr IV Q4H [facility] Last Admin: 11/23/16 09:40 Dose: 200 mls/hr Magnesium Sulfate 2 gm/ Premix 50 mls @ 25 mls/hr IV ONETIME ONE Stop: 11/22/16 11:36 Last Admin: 11/22/16 20:22 Dose: Not Given Magnesium Sulfate 2 gm/ Premix 50 mls @ 25 mls/hr IV ONETIME ONE Stop: 11/22/16 17:29 Last Admin: 11/22/16 15:08 Dose: 25 mls/hr Promethazine HCl 12.5 mg/ (Sodium Chloride) 50.5 mls @ 100 mls/hr IV Q6H PRN PRN Reason: Nausea Vancomycin HCl 1 gm/Vancomycin HCl 250 mg/ Sodium Chloride 250 mls @ 165 mls/ hr IV Q8H [facility] Last Admin: 11/22/16 12:51 Dose: 165 mls/hr Sodium Chloride (Normal Saline) 1,000 mls @ 999 mls/hr IV ASDIRECTED [facility] Stop: 11/24/16 10:56 Last Admin: 11/23/16 11:12 Dose: 999 mls/hr Sodium Chloride (Normal Saline) 1,000 mls @ 250 mls/hr IV ASDIRECTED [facility] Last Admin: 11/24/16 21:08 Dose: 250 mls/hr Sodium Chloride (Normal Saline) Confirm Administered Dose 1,000 mls @ as directed .ROUTE .[facility]-MED ONE Stop: 11/23/16 10:00 Last Admin: 11/23/16 10:22 Dose: Not Given Sodium Chloride (Normal Saline) 100 mls @ 60 mls/hr IV ASDIRECTED [facility] Last Admin: 11/24/16 16:59 Dose: 60 mls/hr Ampicillin Sodium 2 gm/ Sodium (Chloride) 100 mls @ 200 mls/hr IV Q6H [facility] Last Admin: 11/24/16 20:04 Dose: Not Given Ceftriaxone Sodium 2 gm/ (Sodium Chloride) 100 mls @ 200 mls/hr IV Q24H [facility] Last Admin: 11/24/16 20:32 Dose: 200 mls/hr Ampicillin Sodium 2 gm/ Sodium (Chloride) 100 mls @ 200 mls/hr IV Q6H [facility] Last Admin: 11/24/16 20:00 Dose: 200 mls/hr Dopamine HCl/Dextrose (Dopamine In D5w 400 Mg/250 Ml) 400 mg in 250 mls @ 16.5 mls/hr IV TITRATE LIYAH; 5 MCG/KG/MIN PRN Reason: Protocol Last Titration: 11/25/16 15:00 Dose: 2.5 mcg/kg/min, 8.247 mls/hr Ampicillin Sodium 2 gm/ Sodium (Chloride) 100 mls @ 200 mls/hr IV Q6H [facility] Last Admin: 11/25/16 06:29 Dose: 200 mls/hr Sodium Chloride (Normal Saline) 1,000 mls @ 50 mls/hr IV ASDIRECTED [facility] Last Admin: 11/25/16 08:20 Dose: 50 mls/hr Ampicillin Sodium 2 gm/ Sodium (Chloride) 100 mls @ 200 mls/hr IV Q6H [facility] Last Admin: 11/25/16 14:06 Dose: 200 mls/hr Piperacillin Sod/Tazobactam (Sod 4.5 gm/ Sodium Chloride) 100 mls @ 200 mls/hr IV ONETIME ONE Stop: 11/25/16 10:29 Last Admin: 11/25/16 10:10 Dose: 200 mls/hr Piperacillin Sod/Tazobactam (Sod 4.5 gm/ Sodium Chloride) 100 mls @ 25 mls/hr IV Q8H [facility] Magnesium Sulfate 2 gm/ Premix 50 mls @ 25 mls/hr IV ONETIME ONE Stop: 11/25/16 13:53 Last Admin: 11/25/16 12:04 Dose: 25 mls/hr Doxycycline Hyclate 100 mg/ (Sodium Chloride) 100 mls @ 100 mls/hr IV Q12HR [facility] Ibuprofen (Motrin) 600 mg PO ONETIME ONE Stop: 11/19/16 16:10 Last Admin: 11/19/16 16:12 Dose: 600 mg Ibuprofen (Motrin) 600 mg PO Q6H PRN PRN Reason: Pain/Fever Last Admin: 11/25/16 09:26 Dose: 600 mg Iopamidol (Isovue-300 (61%)) 125 ml IVPUSH ONETIME ONE Stop: 11/19/16 13:20 Last Admin: 11/19/16 13:30 Dose: 125 ml Iopamidol (Isovue-370 (76%)) 100 ml IVPUSH ONETIME ONE Stop: 11/24/16 16:39 Last Admin: 11/24/16 16:59 Dose: 100 ml Ipratropium [place] (Atrovent) 0.5 mg NEB QIDRT PRN PRN Reason: Shortness of Breath Ketorolac Tromethamine (Toradol) 60 mg IM ONETIME ONE Stop: 11/19/16 20:01 Last Admin: 11/19/16 23:14 Dose: 60 mg Ketorolac Tromethamine (Toradol) 30 mg IVPUSH Q6H [facility] Stop: 11/21/16 08:01 Last Admin: 11/20/16 05:00 Dose: Not Given Ketorolac Tromethamine (Toradol) 30 mg IVPUSH Q6H [facility] Stop: 11/21/16 12:01 Last Admin: 11/20/16 11:17 Dose: 30 mg Ketorolac Tromethamine (Toradol) 60 mg IVPUSH ONETIME ONE Stop: 11/24/16 20:03 Last Admin: 11/24/16 20:35 Dose: 60 mg Ketorolac Tromethamine (Toradol) 30 mg IVPUSH Q6H [facility] Last Admin: 11/25/16 13:46 Dose: 30 mg Lorazepam (Ativan) 1 mg IVPUSH Q6H PRN PRN Reason: Anxiety Last Admin: 11/24/16 22:47 Dose: 1 mg Magnesium Oxide (Magnesium Oxide) 400 mg PO DAILY [facility] Last Admin: 11/25/16 09:16 Dose: 400 mg Mesalamine (Asacol Hd) 800 mg PO TID [facility] Methylprednisolone Sodium Succinate (Solu-Medrol) 40 mg IVPUSH Q6H [facility] Last Admin: 11/22/16 20:22 Dose: Not Given Methylprednisolone Sodium Succinate (Solu-Medrol) 40 mg IVPUSH Q8H [facility] Last Admin: 11/24/16 13:22 Dose: 40 mg Methylprednisolone Sodium Succinate (Solu-Medrol) 40 mg IVPUSH DAILY [facility] Last Admin: 11/25/16 09:17 Dose: 40 mg Miscellaneous Information (Remove Patch) 1 ea TRDERM Q72H PRN PRN Reason: PATCH REMOVAL Miscellaneous Information (Remove Patch) 1 ea TRDERM ONETIME ONE Stop: 11/21/16 08:01 Last Admin: 11/21/16 08:19 Dose: Not Given Miscellaneous Information (Remove Patch) 1 ea TRDERM DAILY [facility] Last Admin: 11/25/16 09:18 Dose: 1 ea Nicotine (Habitrol) 21 mg TRDERM ONETIME ONE Stop: 11/20/16 08:01 Last Admin: 08/11/17 07:43 Dose: 21 mg Nicotine (Habitrol) 21 mg TRDERM DAILY [facility] Last Admin: 11/25/16 09:17 Dose: 21 mg Ondansetron HCl (Zofran) 4 mg IVPUSH Q8H PRN PRN Reason: Nausea/Vomiting Last Admin: 11/25/16 10:21 Dose: 4 mg Pantoprazole Sodium (Protonix Iv) 40 mg IVPUSH Q12H [facility] Last Admin: 11/23/16 05:23 Dose: 40 mg Pantoprazole Sodium (Protonix) 40 mg PO DAILY@0700 [facility] Last Admin: 11/25/16 06:30 Dose: 40 mg Potassium Chloride (Potassium Chloride) 60 meq PO ONETIME ONE Stop: 11/25/16 11:54 Last Admin: 11/25/16 12:03 Dose: 60 meq Saccharomyces Boulardii (Florastor) 500 mg PO BID [facility] Last Admin: 11/22/16 21:26 Dose: 500 mg Saccharomyces Boulardii (Florastor) 250 mg PO BID [facility] Last Admin: 11/25/16 09:16 Dose: 250 mg Scopolamine (Transderm-Scop) 1.5 mg TRDERM Q72H PRN PRN Reason: Nausea/Vomiting Last Admin: 11/25/16 12:14 Dose: 1.5 mg Sodium Chloride (Saline Flush) 10 ml FLUSH ONETIME ONE Stop: 11/19/16 13:20 Last Admin: 11/19/16 13:30 Dose: 10 ml Sodium Chloride (Saline Flush) 10 ml FLUSH ONETIME ONE Stop: 11/24/16 16:39 Last Admin: 11/24/16 16:59 Dose: 10 ml Temazepam (Restoril) 15 mg PO BEDTIME PRN PRN Reason: Sleep Last Admin: 11/25/16 01:00 Dose: 15 mg Vancomycin HCl (Pharmacy To Dose - Vancomycin) 0 dose .XX ASDIRECTED PRN PRN Reason: RX TO DOSE VANCOMYCIN *Q Meaningful Use (DIS) - VTE *Q VTE Criteria *Q: - Stroke *Q Stroke Criteria *Q: - AMI *Q AMI Criteria *Q:
[2016-11-25 16:03] VITALS: BP 142/97
[2016-11-25] MEDS ORDERED: Piperacillin/Tazobactam 4.5 GM in Sodium Chloride 0.9% 100 ML IV SCH (18:00)
[2016-11-25] MEDS ORDERED: Doxycycline 100 MG in Sodium Chloride 0.9% 100 ML IV SCH (21:00)
== END 2016-11-25 15:44 | DRG 864 ==
LOC: JD.ED 09:13 → JD.MS 16:04 → JD.ICU 11-20 19:00 → JD.MS 11-23 13:36 → JD.ICU 11-24 16:36
PROVIDERS: ADMIT Internal Medicine; ATTEND Internal Medicine
DX: R50.9 Fever, unspecified (principal); J18.9 Pneumonia, unspecified organism; K50.00 Crohn's disease of small intestine without complications; K52.9 Noninfective gastroenteritis and colitis, unspecified; F17.210 Nicotine dependence, cigarettes, uncomplicated; E86.0 Dehydration; R51 Headache; R00.1 Bradycardia, unspecified; R42 Dizziness and giddiness
CPT/HCPCS: 36415; 70450; 70450-26; 71010; 71010-26; 71020; 71020-26; 71260; 71260-26; 74177; 74177-26; 80048; 80053; 80061; 80202; 80306; 81001; 82607; 82962; 83036; 83540; 83605; 83630; 83690; 83735; 84466; 84484; 85025; 85652; 86140; 86618; 86738; 86777; 86778; 86788; 86789; 87040; 87046; 87427; 87486; 87493; 87581; 87633; 87798; 87804; 87899; 89055; 93005; 93306; 94664; 94762; 96361; 96365; 99284; 99285-25; A9270; A9270-GY; C9113; J0133; J0290; J0461; J0696; J1170; J1265; J1885; J1956; J2060; J2405; J2543; J2550; J2920; J3370; J3475; J7030; J7040; J7042; J7050; Q9963; Q9967